=== PATIENT | male | born 1940 | race Caucasian/White ===

== ENCOUNTER → 2020-05-09 | Outpatient (REF) | payer MEDICARE | LOC: M SMT 13:35 | PROVIDERS: ATTEND Urology | DX: N13.30 Unspecified hydronephrosis (principal); N40.1 Benign prostatic hyperplasia with lower urinary tract symptoms ==

== ENCOUNTER 2020-09-14 16:11 | Inpatient (IN) | payer MEDICARE ==
[~2020-09-14] VITALS: Ht 180.3 cm; Wt 107.4 kg
[2020-09-14] MEDS ORDERED: FINA5TAB2 PO (16:21)
[2020-09-14] MEDS ORDERED: ECOT81TA5 PO (16:21)
[2020-09-14] MEDS ORDERED: FLOM0.4C39 PO (16:21)
[2020-09-14] MEDS ORDERED: LEVO75TA4 PO (16:21)
[2020-09-14] MEDS ORDERED: ATEN25TA PO (16:21)
[2020-09-14] MEDS ORDERED: SIMV20TA22 PO (16:21)
[2020-09-14 17:24] LABS: BASO % 0.4 % (0.0-1.0); EOS # 0.3 10^3/uL (0.0-0.5); EOS % 4.6 % (0.0-3.0); HEMOGLOBIN 10.5 g/dl (13.5-17.5); LYMPH % 17.3 % (24.0-44.0); MEAN CORPUSCULAR HEMOGLOBIN 31.6 pg (27.0-33.0); MEAN CORPUSCULAR HGB CONC 31.8 g/dl (32.0-36.5); MEAN CORPUSCULAR VOLUME 99.4 fl (80.0-96.0); MONO # 0.6 10^3/uL (0.0-0.8); MONO % 10.7 % (2.0-8.0); NEUTROPHILS # 3.8 10^3/uL (1.5-8.5); NEUTROPHILS % 66.8 % (36.0-66.0); PLATELET COUNT, AUTOMATED 149 10^3/uL (150-450); RED BLOOD COUNT 3.32 10^6/uL (4.30-6.10); WHITE BLOOD COUNT 5.7 10^3/uL (4.0-10.0)
[2020-09-14 17:59] LABS: BILIRUBIN,DIRECT 0.1 MG/DL (0.0-0.2); BILIRUBIN,TOTAL 0.4 MG/DL (0.2-1.0); TOTAL PROTEIN 7.4 GM/DL (6.4-8.2)
[2020-09-14] MEDS ORDERED: TIMO0.5S29 OU (18:42)
[2020-09-14] MEDS ORDERED: FURO40TA2 PO (18:42)
[2020-09-14] MEDS ORDERED: CVS1500T PO (18:42)
[2020-09-14] MEDS ORDERED: FERR325T82 PO (18:42)
[2020-09-14] MEDS ORDERED: POTA20TA6 PO (18:42)
[2020-09-14] MEDS ORDERED: ACET500T15 PO (18:42)
[2020-09-14] MEDS ORDERED: BRIM0.2S13 OU (18:42)
[2020-09-14] MEDS ORDERED: POLYOPD OU (18:42)
[2020-09-14] MEDS ORDERED: PANT40TA29 PO (18:42)
[2020-09-14] MEDS ORDERED: CALCIUM GLUCONATE 1,000 MG in D5W MINI-BAG PLUS 100 ML IV ONE (18:45)
[2020-09-14] MEDS ORDERED: NS 500 ML IV ONE (18:45)
[2020-09-14] MEDS ORDERED: SOD POLYSTYRENE SULFONATE SUSP 15 GM/60 ML UD PO ONE (18:45)
--- NOTE | 2020-09-14 18:55 | REP ---
INDICATION: bilateral hydronephrosis COMPARISON: None TECHNIQUE: Real time bryan scale ultrasound examination using curved array transducer. FINDINGS: Bilateral grade 4/5 hydroureteronephrosis is appreciated. The right kidney measures 12.0 x 6.7 x 6.8 cm with proximal hydroureter measuring 21 mm. No obvious nephrolithiasis, cystic or renal mass lesion noted. The left kidney measures 12.6 x 5.9 x 6.7 cm with proximal hydroureter measuring 12 mm. No obvious nephrolithiasis, cystic or renal mass lesion noted. The bladder is incompletely evaluated although ureteral jets were not identified during the examination and obstruction cannot be excluded. IMPRESSION: Severe bilateral hydroureteronephrosis (right greater than left). <Electronically signed by Cullen Michael > 09/14/20 [id number]
[2020-09-14 19:24] LABS: CALCIUM LEVEL 9.5 MG/DL (8.8-10.2); CREATININE FOR GFR 2.05 MG/DL (0.70-1.30); GLOMERULAR FILTRATION RATE 33.4 (>35); POTASSIUM SERUM 5.3 MEQ/L (3.5-5.1)
[2020-09-14] MEDS ORDERED: POLYVINYL ALCOHOL OPHTH SOLN 15 ML(LIQUITEARS) OU PRN (19:25)
[2020-09-14 20:08] LABS: RSV AMPLIFICATION NEGATIVE (NEGATIVE)
[2020-09-14 21:00] VITALS: BP 128/74
[2020-09-14] MEDS ORDERED: atenoloL 25 MG TAB PO SCH (21:00)
--- NOTE | 2020-09-14 21:17 | HPEPDOC ---
[facility] Medical History & Physical Date of Admission Sep 14, 2020 Date of Service: Sep 14, 2020 Attending Physician: MUKUND RAUSCH MD History and Physical CHIEF COMPLAINT: [80 y/o male who presents to the ED after abnormal bloodwork/imaging.] HISTORY OF PRESENT ILLNESS: [This is an 81 y/o male with a pmh of htn, hld, gerd, glaucoma, hypothyroidism, bph and esophageal cancer who presents to the ed after being called by his pcp to do so. Patient states he saw his pcp 1-2 weeks ago for routine bloodwork which found an elevated creatinine. Patient then underwent renal us and ct abd/pelvis at outside center and was called by his doc to come to our emergency department. Patient is unsure what the imaging showed. As of my exam of pt, he is resting comfortably and states that he feels good. Patient states that he has had no recent illness, has had good oral intake, and feels as though he has been urinating and empyting his bladder fully. Patient denies any fever, chills, chest pain, sob, dysuria, hematuria, abd pain, n/v/d/c. Of note, patient found to have cr of 2.1, k of 5.3, and severe b/l hydroureteronephrosis on renal us in our ed.] PAST MEDICAL HISTORY: 1. [See HPI PAST SURGICAL HISTORY: 1. [Colonoscopy]. 2. [Endoscopy]. SOCIAL HISTORY: Marital status: []. Resides in: [Home with ] Tobacco use:[Denies] ETOH: [Denies] Illicit drug use: [Denies] FAMILY HISTORY: Reviewed with pt - non pertinent ALLERGIES: Please see below. REVIEW OF SYSTEMS: CONSTITUTIONAL: [See HPI]. HEENT: [Denies uri sx]. CARDIOVASCULAR: [See HPI]. RESPIRATORY: [See HPI]. GASTROINTESTINAL: [See HPI]. GENITOURINARY: [See HPI]. SKIN: [Denies rash]. MUSCULOSKELETAL: [Denies back pain, acute joint pain]. NEUROLOGICAL: [Denies paresthesias]. PSYCHIATRIC: [Denies anxiety]. ENDOCRINE: [Denies hx of dm]. HEMATOLOGIC/LYMPHATIC: [Denies easy bruising]. HOME MEDICATIONS: Please see below. PHYSICAL EXAMINATION: VITAL SIGNS: Please see below GENERAL APPEARANCE: [This is a 80 year old male who appear his stated age.]. HEENT: [No mass or lesion. EOMI. No scleral icterus or conjunctival erythema. Nares patent. Oral mucosa moist without erythema.]. CARDIOVASCULAR: [Regular rate, rhythm. No murmurs, rubs, gallops]. LUNGS: [Good air flow auscultated. No wheezing, rales, rhonchi.]. ABDOMEN: [Soft, non-tender]. MUSCULOSKELETAL: [No joint deformity]. EXTREMITIES: [Mild edema to b/l lower extremities. No overlying skin changes. Pulses intact.]. NEUROLOGICAL: [Speech clear. A+Ox3. No focal deficits]. PSYCHIATRIC: [Mood and affect appear appropriate]. LABORATORY DATA: See below. IMAGING: [Renal US: FINDINGS: Bilateral grade 4/5 hydroureteronephrosis is appreciated. The right kidney measures 12.0 x 6.7 x 6.8 cm with proximal hydroureter measuring 21 mm. No obvious nephrolithiasis, cystic or renal mass lesion noted. The left kidney measures 12.6 x 5.9 x 6.7 cm with proximal hydroureter measuring 12 mm. No obvious nephrolithiasis, cystic or renal mass lesion noted. The bladder is incompletely evaluated although ureteral jets were not identified during the examination and obstruction cannot be excluded. IMPRESSION: Severe bilateral hydroureteronephrosis (right greater than left).] MICROBIOLOGY: Please see below. ASSESSMENT: [This is an 80 y/o male with a pmh of htn, hld, gerd, glaucoma, hypothyroidism, bph and esophageal cancer who reports to the ed after having abnormal imaging and labwork with his pcp. Patient found to have severe b/l hy droureteronephrosis and elaine on evaluation in the ed. ]. . PLAN: 1. [Urinary retention - Most likely bladder outlet obstruction d/t enlarged prostate - Dr. Benjamin, urology, has been consulted - Will insert lara catheter for drainage - Will monitor bp for post obstructive diuresis hypotension - UA shows no signs of infection, no abx needed - Continue flomax, finasteride - Admit to med surg for possible urologic surgical intervention. NPO overnight. 2. ELAINE - CR is 2.1 in ED - Post-renal. Should improve with lara catheterization - Will trend bmp 3. Hyperkalemia - Potassium was 5.3 in ed. No ekg abnormalities noted. - Likely d/t patient being in elaine while on at home potassium supplementation - One dose of kayexalate will be given - Will repeat bmp in morning 4. HTN - Continue atenolol, lasix - We will monitor bp closely as pt will be at risk for post obstructive diuresis hypotension 5. HLD - Continue simvastatin 6. Gerd - Continue protonix 7. Glaucoma - continue timolol, brimonidine drops 8. Hypothyroidism - continue levothyroxine 9. DVT prophylaxis - teds and scds ]. Vital Signs Vital Signs Date Time Temp Pulse Resp B/P (MAP) Pulse Ox O2 Delivery O2 Flow Rate FiO2 09/14/20 17:18 09/14/20 16:12 97.9 57 18 96 Room Air Laboratory Data Labs 24H Laboratory Tests 2 09/14/20 16:37: Immature Granulocyte % (Auto) 0.2, Neutrophils (%) (Auto) 66.8H, Lymphocytes (%) (Auto) 17.3L, Monocytes (%) (Auto) 10.7H, Eosinophils (%) (Auto) 4.6H, Basophils (%) (Auto) 0.4, Neutrophils # (Auto) 3.8, Lymphocytes # (Auto) 1.0L, Monocytes # (Auto) 0.6, Eosinophils # (Auto) 0.3, Basophils # (Auto) 0.0, Nucleated Red Blood Cells % (auto) 0.0, Anion Gap 7L, Glomerular Filtration Rate 33.4L, Calcium Level 9.5, Total Bilirubin 0.4, Direct Bilirubin 0.1, Aspartate Amino Transf (AST/SGOT) 18, Alanine Aminotransferase (ALT/SGPT) 19, Alkaline Phosphatase 79, Total Protein 7.4, Albumin 4.0, Albumin/Globulin Ratio 1.2, Lipase 160 09/14/20 16:57: Urine Color STRAW, Urine Appearance CLEAR, Urine pH 6.0, Urine Specific [place] 1.008, Urine Protein NEGATIVE, Urine Glucose (UA) NEGATIVE, Urine Ketones NEGATIVE, Urine Blood NEGATIVE, Urine Nitrite NEGATIVE, Urine Bilirubin NEGATIVE, Urine Urobilinogen 0.2, Urine Leukocyte Esterase NEGATIVE, Urine WBC (Auto) 1, Urine RBC (Auto) 0, Urine Hyaline Casts (Auto) 0, Urine Bacteria (Auto) NEGATIVE, Urine Squamous Epithelial Cells 0, Urine Sperm (Auto) 09/14/20 17:10: POC Glucose (Misc Panel) 94, POC Sodium (Misc Panel) 142, POC Potassium (Misc Panel) 5.3H, POC Chloride (Misc Panel) 109, POC Total CO2 (Misc Panel) 26.0, POC Blood Urea Nitrogen (Misc Panel 31H, POC Ionized Calcium (Misc Panel) 5.1, POC Creatinine (Misc Panel) 2.1H, POC Hematocrit (Misc Panel) 31.0L 09/14/20 18:19: Coronavirus (COVID-19)(PCR) NEGATIVE, Influenza Type A (RT-PCR) NEGATIVE, Influenza Type B (RT-PCR) NEGATIVE, Respiratory Syncytial Virus (PCR) NEGATIVE CBC/BMP Laboratory Tests 09/14/20 16:37 Home Medications Scheduled Acetaminophen (Acetaminophen) 500 Mg Tablet, 500 MG PO BID Aspirin (Ecotrin) 81 Mg Tablet.dr, 81 MG PO DAILY Atenolol (Atenolol) 25 Mg Tablet, 25 MG PO BID Brimonidine Tartrate (Brimonidine Tartrate) 0.2% 5ML Drops, 1 DROP OU TID Ferrous Sulfate (Iron) 325 Mg Tablet, 325 MG PO QHS Finasteride (Finasteride) 5 Mg Tablet, 5 MG PO DAILY Furosemide (Furosemide) 40 Mg Tablet, 40 MG PO DAILY Glucosamine HCl (Glucosamine HCl) 1,500 Mg Tablet, 1,500 MG PO BID Levothyroxine Sodium (Levothyroxine Sodium) 75 Mcg Tablet, 75 MCG PO QAM Pantoprazole Sodium (Pantoprazole Sodium) 40 Mg Tablet.dr, 40 MG PO DAILY Potassium Chloride (Potassium Chloride) 20 Meq Tab.er.prt, 20 MEQ PO QHS Simvastatin (Simvastatin) 20 Mg Tablet, 20 MG PO QHS Tamsulosin HCl (Flomax) 0.4 Mg Capsule, 0.4 MG PO QHS Timolol Maleate (Timolol Maleate) 0.5% 5ML Drops, 1 DROP OU BID Scheduled PRN Polyvinyl Alcohol (Artificial Tears) 15 Ml Drops, 1 DROP OU QID PRN for DRY EYES Allergies Coded Allergies: No Known Allergies (Unverified , 09/14/20) A-FIB/CHADSVASC A-FIB History Current/History of A-Fib/PAF?: No Attending Note Attending Note Cr elevated likely 2/2 BPH, as hydroureteronephrosis is bilateral. Urology con sulted. To obtain records from outpatient CT. Lara inserted, drained 800 cc of clear urine. Overnight, patient candy to high 30s on telemetry while asleep. Asymptomatic. One 2-sec pause. No formal heart block identified on tele. EKG showing sinus bradycardia. If events persist, consider cardiology consult. Atenolol discontinued. GORDON WILDE Sep 14, 2020 21:17 MUKUND RAUSCH MD September 15, 2020 05:05
[2020-09-14 22:43] VITALS: BP 128/74
[2020-09-14] MEDS ORDERED: NS 1,000 ML IV ONE (23:10)
[2020-09-14] MEDS: TAMSULOSIN 0.4 MG CAP PO SCH (23:23)
[2020-09-14] MEDS: SIMVASTATIN 20 MG TAB PO SCH (23:23)
[2020-09-14] MEDS: FERROUS SULFATE 325MG TAB PO SCH (23:23)
[2020-09-14] MEDS: ACETAMINOPHEN 500 MG TAB PO SCH (23:25)
[2020-09-14] MEDS: TIMOLOL MALEATE 0.5% OPHTH SOLN 5 ML OU SCH (23:54)
[2020-09-14] MEDS: BRIMONIDINE 0.15% OPHTH SOLN 5 ML OU SCH (23:54)
[2020-09-15] VITALS (7 sets, daily range): BP systolic 127–136; BP diastolic 60–73
[2020-09-15 02:45] LABS: THYROID STIMULATING HORMONE 3.62 uIU/ML (0.358-3.740)
--- NOTE | 2020-09-15 04:34 | ECGEPIP ---
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
[2020-09-15] MEDS: LEVOTHYROXINE 75MCG TABLET (0.075MG) PO SCH (05:30)
[2020-09-15 05:41] LABS: HEMATOCRIT 31.6 % (42.0-52.0); HEMOGLOBIN 10.2 g/dl (13.5-17.5); MEAN CORPUSCULAR HEMOGLOBIN 31.9 pg (27.0-33.0); MEAN CORPUSCULAR HGB CONC 32.3 g/dl (32.0-36.5); MEAN CORPUSCULAR VOLUME 98.8 fl (80.0-96.0); PLATELET COUNT, AUTOMATED 143 10^3/uL (150-450); WHITE BLOOD COUNT 4.9 10^3/uL (4.0-10.0)
[2020-09-15] MEDS ORDERED: MIDAZOLAM INJ 2MG/2ML VIAL (J2250 PER 1MG) As Ordered ONE (06:44)
[2020-09-15] MEDS ORDERED: propofoL 200 MG/20 ML VIAL As Ordered ONE (06:44)
[2020-09-15] MEDS ORDERED: LIDOCAINE 2% 100MG/5ML SDV (FOR ANES.) As Ordered ONE (06:44)
[2020-09-15] MEDS ORDERED: fentaNYL 100 MCG/2 ML INJECTION (J3010) As Ordered ONE ×2 (06:45→14:23)
[2020-09-15 06:46] LABS: CALCIUM LEVEL 9.2 MG/DL (8.8-10.2); CREATININE FOR GFR 1.84 MG/DL (0.70-1.30); GLOMERULAR FILTRATION RATE 37.9 (>35); MAGNESIUM LEVEL 1.9 MG/DL (1.8-2.4); POTASSIUM SERUM 4.2 MEQ/L (3.5-5.1)
[2020-09-15] MEDS: BRIMONIDINE 0.15% OPHTH SOLN 5 ML OU SCH ×3 (08:55→20:43)
[2020-09-15] MEDS: PANTOPRAZOLE 40MG TAB (PROTONIX) PO SCH (08:56)
[2020-09-15] MEDS: FINASTERIDE 5 MG TAB PO SCH (08:56)
[2020-09-15] MEDS: ACETAMINOPHEN 500 MG TAB PO SCH ×2 (08:57→20:43)
[2020-09-15] MEDS: SODIUM CHLORIDE 0.9% INJ 10 ML SYR IV SCH (08:58)
[2020-09-15] MEDS ORDERED: FUROSEMIDE 40 MG TAB PO SCH (09:00)
[2020-09-15] MEDS ORDERED: ASPIRIN 81MG ENTERIC TABLET PO SCH (09:00)
[2020-09-15] MEDS: TIMOLOL MALEATE 0.5% OPHTH SOLN 5 ML OU SCH (09:02)
[2020-09-15] MEDS ORDERED: CONRAY-60 60% 50ML VIAL (Q9961) As Ordered ONE (11:43)
[2020-09-15] MEDS ORDERED: ceFAZolin 2 GM/D5W 50 ML IV BAG (J0690 PER 500MG) As Ordered ONE (11:58)
[2020-09-15] MEDS ORDERED: GLYCOPYRROLATE INJ 0.2 MG/ML 2 ML VIAL As Ordered ONE (12:23)
[2020-09-15] MEDS ORDERED: dexameTHASONE 4 MG/ML 1ML VIAL (J1100 PER 1MG) As Ordered ONE (12:24)
[2020-09-15] MEDS ORDERED: ONDANSETRON 4MG/2ML VIAL As Ordered ONE (12:24)
[2020-09-15] MEDS ORDERED: FLUORESCEIN 10% (100MG/ML) 5 ML VIAL As Ordered ONE ×2 (12:24→13:22)
[2020-09-15] MEDS ORDERED: METHYLENE BLUE 0.5% (5MG/ML) 10 ML AMP (PROVAYBLUE) As Ordered ONE (12:41)
[2020-09-15] MEDS ORDERED: DESFLURANE 240 ML INHALANT As Ordered ONE (12:54)
--- NOTE | 2020-09-15 13:55 | REP ---
INDICATION: BILATERAL STENT PLACEMENT. COMPARISON: None. TECHNIQUE: Intraoperative fluoroscopic imaging using C-arm technique. FINDINGS: Single image demonstrates cannulation to a normal appearing right ureter. Total fluoroscopic time 0.47 seconds. IMPRESSION: Normal appearance of the right ureter. <Electronically signed by Cullen Michael > 09/15/20 [id number]
--- NOTE | 2020-09-15 14:39 | ROOPDOC ---
[facility] Report Of Operation Report of Operation DATE OF PROCEDURE: 09/15/20 PREPROCEDURE DIAGNOSES: Severe bilateral hydronephrosis, acute kidney injury, and questionable bladder lesion POSTPROCEDURE DIAGNOSES: Large median lobe of the prostate and originally and inability to find both ureteral orifices PROCEDURE: Cystoscopy, partial TURP of the median lobe of the prostate, right retrograde pyelogram and right ureteral stent placement SURGEON: Debby Bassett MD ASSISTANT CURATOR: None ANESTHESIA: Gen. ESTIMATED BLOOD LOSS: Approximately 20 mL. COMPLICATIONS: Inability to find left ureteral orifice REMARKS: Large median lobe over the ureteral orifices SPECIMEN: Prostatic tissue PROCEDURE NOTE: Patient is an 80-year-old gentleman who was sent to the emergency room after he was found to have an elevated creatinine of 2.[address] scan showing severe bilateral hydronephrosis. He had recently had a bladder ultrasound on 09/10/20 which showed a PVR 15 mL. He has been seen in my office in the past and was known to have a hydronephrosis back in April 2020 and his creatinine at the time was 1.46. Cystoscopy was done because there was a question of a bladder lesion but no abnormalities were seen. After discussing all different options, alternatives, risks, and benefits it was decided to bring him to the operating room for cystoscopy and bilateral ureteral stent placement. Informed consent was obtained in both verbal and written form. DESCRIPTION OF PROCEDURE: The patient was brought into the operating room and sequential compression devices were in place. Preoperative antibiotics were given with Ancef 2 g. Anesthesia was then induced. The patient was then placed in the lithotomy position and he was prepped and draped in the usual fashion. A 21 Fijian cystoscope was inserted in the urethra was noted to be open without any evidence of lesions or strictures. The prostatic urethra had some mild hypertrophy but he had a very large median lobe and high bladder neck. The bladder did show some trabeculation. Originally I was not able to see either ureteral orifice so I gave fluorosine and still was unable to visualize the orifices. It was felt that they most likely were behind the median lobe. At this point a 26 Fijian resectoscope was placed under direct vision and the median lobe was removed. There was also some inflammatory tissue on the left-hand side which had been biopsied and sent separately before the resection. Once the median lobe was removed I was able to see fluorosine coming from the right ureteral orifice. I then put in a cone-tip catheter and did a retrograde pyelogram. There was something distally that the wire had trouble passing but I was finally able to get this in and then placed a 7 Fijian scope. I resected a little bit further but was never able to see any floor seen or methylene blue coming from the left side and was unable to find the ureteral orifice. We will plan on doing a left nephrostomy tube and hopefully internalize the stent when interventional radiology is available. A 22 Fijian three-way Ibrahim catheter was placed and the patient was placed on continuous bladder irrigation which was fairly clear. Resected tissue was sent to pathology. The patient tolerated the procedure well and was returned to the recovery room in stable condition. DEBBY BASSETT MD September 15, 2020 14:38
--- NOTE | 2020-09-15 14:49 | IPN ---
PROGRESS NOTE DATE: 09/15/2020 SUBJECTIVE: Patient denies any shortness of breath, chest pain, pressure, tightness, lightheadedness, dizziness. Denies diaphoresis, nausea, vomiting, epigastric pain, flank pain, dysuria, urgency frequency. Ibrahim catheter placed overnight, but monitoring 1 liter last night, 1.1 liters since midnight. Current weight is 106 kg. PHYSICAL EXAMINATION: VITAL SIGNS: Temperature 97.7, pulse 50, respiratory rate 19, blood pressure 134/73, 98% on room air. TELEMETRY: Sinus pulse 2 seconds, sinus bradycardia. GENERAL: Awake, alert, oriented to person, place and time, answering questions appropriately. No respiratory distress. No pallor, icterus, jaundice. HEENT: No jugular venous distention (JVD), thyromegaly, cervical lymphadenopathy. HEART: S1, S2. Sinus bradycardia. ABDOMEN: Soft, nontender, nondistended. Positive bowel sounds. GENITOURINARY: Ibrahim catheter in place. No costovertebral angle (CVA) tenderness. LUNGS: Clear to auscultation. No wheezing, rales or rhonchi. EXTREMITIES: No cyanosis, clubbing. SKIN: Warm, dry, well perfused, pink in color. LABORATORY DATA: White count 4.9, hemoglobin 10, hematocrit 31, platelets 143. Previous platelet count 149. Sodium 144, potassium 4.2, chloride 113, bicarbonate 25, BUN 28, creatinine 1.84, glucose 98. Creatinine 2.05 yesterday. Renal ultrasound: Severe bilateral hydroureter nephrosis right greater than left. ASSESSMENT AND PLAN: An 80-year-old male with history of hypertension, hyperlipidemia, reflux, glaucoma, hypothyroidism, benign prostatic hypertrophy (BPH), esophageal cancer, chronic sinus bradycardia, also on timolol for his glaucoma, presented to the emergency room due to abnormal blood work with a creatinine of 2, found to have bilateral hydroureter nephrosis, right greater than left, given intravenous (IV) fluids overnight and Ibrahim catheter placement. Telemetry overnight shows sinus bradycardia and 2 second sinus pause. IMPRESSION: 1. Medical clearance. Discussed the case with Dr. Templeton, powder mixer consulting software engineer, who is not concerned about the sinus bradycardia. Patient should be on telemetry during his hospital stay and may proceed to the operating room. Patient's atenolol, last dose was yesterday morning at home and has not received any atenolol during the hospital admission. His timolol has also been discontinued, but was given a dose this morning. No acute need for atropine, since the patient's blood pressure is well maintained and he is asymptomatic. Patient is medically stable to proceed to the operating room. 2. Sinus pause 2 seconds/sinus bradycardia secondary to atenolol and timolol eye drops. Both of those medications have been discontinued. TSH level is within normal. We are awaiting echocardiogram, but may proceed to surgery for stent placement on telemetry. 3. Bilateral hydroureter nephrosis. Urologist, Dr. Benjamin, has been consulted and will be placing stents in today. Currently has a Ibrahim catheter, adequate urine output with only slight improvement of creatinine to 1.8. Strict intake and output (I and O), daily weight, fluid restriction, nothing by mouth (NPO). Continue on Proscar. 4. Hypertension. Controlled. Currently 120s to 130s systolic. 5. History of esophageal cancer. 6. Hypothyroidism. On Synthroid with normal TSH. 7. Hyperlipidemia. On statin. 8. History of reflux. Chronic. 9. History of benign prostatic hypertrophy (BPH). Chronic. MTDD
[2020-09-15] MEDS ORDERED: oxyCODONE 5MG TAB PO PRN (14:50)
[2020-09-15] MEDS ORDERED: LR 1,000 ML IV SCH (14:50)
[2020-09-15] MEDS ORDERED: fentaNYL 100 MCG/2 ML INJECTION (J3010) IV PRN (14:50)
[2020-09-15] MEDS ORDERED: ONDANSETRON 4MG/2ML VIAL IV PRN (14:50)
--- NOTE | 2020-09-15 15:02 | CR.PDOC ---
General Date of Consultation: September 15, 2020 Referring Provider: NELLA DIEHL MD Consultation Loius is an 80-year-old gentleman being seen in consultation for bilateral hydronephrosis and acute kidney injury with a creatinine of 2.2. The patient has been seen previously in my office where he was first seen to have new onset bilateral hydronephrosis in April 2020 with a creatinine at the time of 1.46. He had absolutely no pain and no irritative or obstructive voiding symptoms. He then had a cystoscopy done on 04/2020 for a questionable bladder lesion but none was appreciated. He was recently seen in his primary care doctor's office and a renal ultrasound showed that the bilateral [place] is now severe and his creatinine had risen to 2.2. He was sent to the ER for further management. Louis denied any gross hematuria or problems with kidney stones. He denied any significant irritative or obstructive voiding symptoms except for some urinary urgency and new onset of nocturnal enuresis the past couple months. He denied any leakage of urine during the day or any change in his medications. He does have a history of esophageal cancer and received both radiation and chemotherapy. A CT scan of the abdomen and pelvis was reviewed from [facility] on 09/14/20 but unfortunately I did not have the disc only the report. This showed moderate to severe bilateral hydroureteronephrosis which has progressed since the prior study of April 2020. Perinephric soft tissue stranding and periureteral soft tissue stranding. There is also irregular wall thickening of the bladder suggestive of cystitis or neoplasm. There is also thickening of the distal esophagus and circumferential thickening of the proximal to mid sigmoid and anterior wall to rectal. His white blood count was normal and a urinalysis was negative. Past medical history: -Esophageal cancer status post radiation and chemotherapy -High blood pressure -GERD -Hypothyroidism -Glaucoma -History of BPH on finasteride and tamsulosin Past Surgical history: -Colonoscopy -Endoscopy -Cystoscopy 04/2020 Social history: He is and lives at home with his . He never smoked cigarettes and he denies alcohol or illicit drug use Family history: Pertinent urologic history Allergies: No known drug allergies Review of systems: A 12 system review was negative Physical exam: This a well nourished well-developed gentleman in no apparent respiratory distress he is alert and oriented 3. His head is normocephalic atraumatic his eyes are PERRLA. His oral mucosa was moist. His neck was supple his trachea was midline. His heart had a regular rate and rhythm. His lungs were clear and there was no wheezing rales or rhonchi appreciated. He had no CVA tenderness. His abdomen was soft and nontender without any rebound or guarding. A Ibrahim catheter was in place draining clear yellow urine. His extremities showed no significant cyanosis clubbing or edema. His neurologic exam was nonfocal. Laboratory data: See below Impression: -Bilateral hydronephrosis with a CT scan showing no stones or other abnormalities -BPH on finasteride and Proscar -Esophageal cancer status post radiation and chemotherapy with high blood pressure also with sinus bradycardia and sinus pause last night Plan: -The hospitalist spoke with Dr. Templeton who felt that surgery was fine today -After discussing all different options, alternatives, risks, benefits it was decided to bring the patient to the operating room today for cystoscopy, bilateral retrograde pyelograms, and bilateral stent placement. Informed consent was obtained in both verbal and written form. At least 70 minutes was spent today with greater than 50% of this in [id number] consultation Vital Signs/I&O Vital Signs Date Time Temp Pulse Resp B/P (MAP) Pulse Ox O2 Delivery O2 Flow Rate FiO2 09/15/20 06:00 97.7 50 19 134/73 (93) 98 Room Air I&O- Last 24 Hours up to 6 AM 09/15/20 06:00 Intake Total 900 ml Output Total 1550 ml Balance -650 ml Laboratory Data Labs 24H Laboratory Tests 2 09/14/20 16:37: Immature Granulocyte % (Auto) 0.2, Neutrophils (%) (Auto) 66.8H, Lymphocytes (%) (Auto) 17.3L, Monocytes (%) (Auto) 10.7H, Eosinophils (%) (Auto) 4.6H, Basophils (%) (Auto) 0.4, Neutrophils # (Auto) 3.8, Lymphocytes # (Auto) 1.0L, Monocytes # (Auto) 0.6, Eosinophils # (Auto) 0.3, Basophils # (Auto) 0.0, Nucleated Red Blood Cells % (auto) 0.0, Anion Gap 7L, Glomerular Filtration Rate 33.4L, Calcium Level 9.5, Total Bilirubin 0.4, Direct Bilirubin 0.1, Aspartate Amino Transf (AST/SGOT) 18, Alanine Aminotransferase (ALT/SGPT) 19, Alkaline Phosphatase 79, Total Protein 7.4, Albumin 4.0, Albumin/Globulin Ratio 1.2, Lipase 160, Thyroid Stimulating Hormone (TSH) 3.620 09/14/20 16:57: Urine Color STRAW, Urine Appearance CLEAR, Urine pH 6.0, Urine Specific [place] 1.008, Urine Protein NEGATIVE, Urine Glucose (UA) NEGATIVE, Urine Ketones NEGATIVE, Urine Blood NEGATIVE, Urine Nitrite NEGATIVE, Urine Bilirubin NEGATIVE, Urine Urobilinogen 0.2, Urine Leukocyte Esterase NEGATIVE, Urine WBC (Auto) 1, Urine RBC (Auto) 0, Urine Hyaline Casts (Auto) 0, Urine Bacteria (Auto) NEGATIVE, Urine Squamous Epithelial Cells 0, Urine Sperm (Auto) 09/14/20 17:10: POC Glucose (Misc Panel) 94, POC Sodium (Misc Panel) 142, POC Potassium (Misc Panel) 5.3H, POC Chloride (Misc Panel) 109, POC Total CO2 (Misc Panel) 26.0, POC Blood Urea Nitrogen (Misc Panel 31H, POC Ionized Calcium (Misc Panel) 5.1, POC Creatinine (Misc Panel) 2.1H, POC Hematocrit (Misc Panel) 31.0L 09/14/20 18:19: Coronavirus (COVID-19)(PCR) NEGATIVE, Influenza Type A (RT-PCR) NEGATIVE, Influenza Type B (RT-PCR) NEGATIVE, Respiratory Syncytial Virus (PCR) NEGATIVE 09/15/20 05:28: Nucleated Red Blood Cells % (auto) 0.0, Anion Gap 6L, Glomerular Filtration Rate 37.9, Calcium Level 9.2, Magnesium Level 1.9 CBC/BMP Laboratory Tests 09/14/20 16:37 09/15/20 05:28 Allergies Coded Allergies: No Known Allergies (Unverified , 09/14/20) Home Medications Scheduled Acetaminophen (Acetaminophen) 500 Mg Tablet, 500 MG PO BID, (Reported) Aspirin (Ecotrin) 81 Mg Tablet.dr, 81 MG PO DAILY, (Reported) Atenolol (Atenolol) 25 Mg Tablet, 25 MG PO BID, (Reported) Brimonidine Tartrate (Brimonidine Tartrate) 0.2% 5ML Drops, 1 DROP OU TID, (Reported) Ferrous Sulfate (Iron) 325 Mg Tablet, 325 MG PO QHS, (Reported) Finasteride (Finasteride) 5 Mg Tablet, 5 MG PO DAILY, (Reported) Furosemide (Furosemide) 40 Mg Tablet, 40 MG PO DAILY, (Reported) Glucosamine HCl (Glucosamine HCl) 1,500 Mg Tablet, 1,500 MG PO BID, (Reported) Levothyroxine Sodium (Levothyroxine Sodium) 75 Mcg Tablet, 75 MCG PO QAM, (Reported) Pantoprazole Sodium (Pantoprazole Sodium) 40 Mg Tablet.dr, 40 MG PO DAILY, (Reported) Potassium Chloride (Potassium Chloride) 20 Meq Tab.er.prt, 20 MEQ PO QHS, (Rep orted) Simvastatin (Simvastatin) 20 Mg Tablet, 20 MG PO QHS, (Reported) Tamsulosin HCl (Flomax) 0.4 Mg Capsule, 0.4 MG PO QHS, (Reported) Timolol Maleate (Timolol Maleate) 0.5% 5ML Drops, 1 DROP OU BID, (Reported) Scheduled PRN Polyvinyl Alcohol (Artificial Tears) 15 Ml Drops, 1 DROP OU QID PRN for DRY EYES, (Reported) MODESTA BASSETT MD September 15, 2020 15:02
[2020-09-15] MEDS: SODIUM CHLORIDE 0.9% INJ 10 ML SYR IV PRN ×2 (16:07→18:31)
[2020-09-15 16:52] LABS: INR 1.15; PARTIAL THROMBOPLASTIN TIME 29.5 SECONDS (24.2-38.5)
--- NOTE | 2020-09-15 17:02 | REP ---
INDICATION: JAUNDICE COMPARISON: None. TECHNIQUE: Real time bryan scale ultrasound examination using curved array transducer. FINDINGS: Gallbladder demonstrates gallstones and wall thickening without pericholecystic fluid or biliary ductal dilatation. The common bile duct measures 5 mm diameter. The liver demonstrates fatty infiltration without obvious focal hepatic lesion. However evaluation is incomplete due to interposed bowel gas. The pancreas is incompletely evaluated due to interposed bowel gas. The right kidney measures 11.5 x 7.2 x 6.9 cm with hydronephrosis and ureteral stent identified. No ascites in the visualized right upper quadrant. IMPRESSION: 1. Cholelithiasis. No evidence for biliary ductal dilatation. 2. Hepatosteatosis. 3. Right renal hydronephrosis with ureteral stent noted. <Electronically signed by Cullen Michael > 09/15/20 [id number]
[2020-09-15 17:06] LABS: ACETAMINOPHEN LEVEL < 2.0 UG/ML (10.0-30.0); ALBUMIN 3.7 GM/DL (3.2-5.2); ALT/SGPT 20 U/L (12-78); BILIRUBIN,TOTAL 0.4 MG/DL (0.2-1.0); BLOOD UREA NITROGEN 26 MG/DL (7-18); CALCIUM LEVEL 8.5 MG/DL (8.8-10.2); CARBON DIOXIDE LEVEL 27 MEQ/L (21-32); CHLORIDE LEVEL 112 MEQ/L (98-107); CREATININE FOR GFR 1.78 MG/DL (0.70-1.30); FERRITIN 371 NG/ML (26-388); GLOMERULAR FILTRATION RATE 39.3 (>35); GLUCOSE, FASTING 106 MG/DL (70-100); IRON (FE) 142 UG/DL (65-175); LDH LACTATE DEHYDROGENASE 89 U/L (87-241); PERCENT SATURATION 54.2 % (19.7-50.0); POTASSIUM SERUM 4.5 MEQ/L (3.5-5.1); SODIUM LEVEL 144 MEQ/L (136-145); TOTAL IRON BINDING CAPACITY 262 UG/DL (250-450); TOTAL PROTEIN 7.2 GM/DL (6.4-8.2)
--- NOTE | 2020-09-15 18:24 | REPVR ---
PROCEDURE INFORMATION: Exam: MR Abdomen Without Contrast, MRCP Exam date and time: 09/15/2020 6:00 PM Age: 80 years old Clinical indication: Abdominal pain; Epigastric; Patient HX: Jaundice f/u to u/s on pacs TECHNIQUE: Imaging protocol: MR of the abdomen without contrast. Exam focused on the bile ducts and pancreatic ducts. 3D MRCP images were acquired and processed without radiologist supervision. COMPARISON: GALLBLADDER US 09/15/2020 4:44 PM FINDINGS: Liver: No mass. Gallbladder and bile ducts: There are gallstones present. Mild gallbladder wall thickening may reflect chronic cholecystitis. No pericholecystic fluid. No evidence of acute cholecystitis demonstrated. The common bile duct measures 5 mm. No mass or choledocholithiasis. 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 Additional tiny cysts may be present as well. Kidneys and ureters: Bilateral hydroureteronephrosis. Etiology of the hydronephrosis not demonstrated on this examination. Pigtail stent catheter demonstrated in the right collecting system. Bilateral simple cortical cysts measuring up to 11 mm in the left kidney. No follow-up suggested. Inflammatory changes demonstrated in the left perinephric space and left retroperitoneal region as well as minimal ascites in the left upper quadrant. Intraperitoneal space: No fluid collection. Bones/joints: The spine demonstrates moderate degenerative changes. IMPRESSION: 1. There are gallstones present. Mild gallbladder wall thickening may reflect chronic cholecystitis. No pericholecystic fluid. No evidence of acute cholecystitis demonstrated. 2. Bilateral hydroureteronephrosis. Etiology of the hydronephrosis not demonstrated on this examination. Pigtail stent catheter demonstrated in the right collecting system. 3. 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 Additional tiny cysts may be present as well. While single follow-up of tiny "white dot" lesions at 2 years is appropriate, the need for further follow-up and length of follow-up, if stable, is unknown. Some radiologists do not report these lesions for patients with advanced age (>75-80 years of age). 4. Bilateral simple cortical cysts measuring up to 11 mm in the left kidney. No follow-up suggested. 5. Inflammatory changes demonstrated in the left perinephric space and left retroperitoneal region as well as minimal ascites in the left upper quadrant. COMMENTS: Consistent with the [employer]'s Incidental Findings Committee white paper (J Am Bettye Radiol 2018): Any incidental renal lesion less than 1 cm or classified as too small to characterize, or any incidental cystic renal lesion characterized as simple-appearing, is likely benign. No follow-up imaging is recommended for these lesions per consensus recommendations based on imaging criteria. Electronically signed by: Allan Riggs On 09/15/2020 18:24:19 PM
[2020-09-15] MEDS: FERROUS SULFATE 325MG TAB PO SCH (20:42)
[2020-09-15] MEDS: SIMVASTATIN 20 MG TAB PO SCH (20:42)
[2020-09-15] MEDS: TAMSULOSIN 0.4 MG CAP PO SCH (20:42)
[2020-09-16] VITALS (8 sets, daily range): BP systolic 88–123; BP diastolic 46–67
[2020-09-16] MEDS: LEVOTHYROXINE 75MCG TABLET (0.075MG) PO SCH (05:06)
[2020-09-16 05:20] LABS: HEMATOCRIT 32.2 % (42.0-52.0); HEMOGLOBIN 10.8 g/dl (13.5-17.5); MEAN CORPUSCULAR HEMOGLOBIN 32.4 pg (27.0-33.0); MEAN CORPUSCULAR HGB CONC 33.5 g/dl (32.0-36.5); MEAN CORPUSCULAR VOLUME 96.7 fl (80.0-96.0); PLATELET COUNT, AUTOMATED 141 10^3/uL (150-450); RED BLOOD COUNT 3.33 10^6/uL (4.30-6.10); WHITE BLOOD COUNT 7.7 10^3/uL (4.0-10.0)
[2020-09-16 05:58] LABS: CALCIUM LEVEL 8.7 MG/DL (8.8-10.2); CREATININE FOR GFR 1.8 MG/DL (0.70-1.30); GLOMERULAR FILTRATION RATE 38.8 (>35); MAGNESIUM LEVEL 1.7 MG/DL (1.8-2.4); POTASSIUM SERUM 4.1 MEQ/L (3.5-5.1)
[2020-09-16] MEDS: FINASTERIDE 5 MG TAB PO SCH (08:05)
[2020-09-16] MEDS: SODIUM CHLORIDE 0.9% INJ 10 ML SYR IV SCH (08:05)
[2020-09-16] MEDS: PANTOPRAZOLE 40MG TAB (PROTONIX) PO SCH (08:05)
[2020-09-16] MEDS: ACETAMINOPHEN 500 MG TAB PO SCH ×2 (08:06→20:23)
[2020-09-16] MEDS: BRIMONIDINE 0.15% OPHTH SOLN 5 ML OU SCH ×3 (08:06→20:23)
[2020-09-16] MEDS ORDERED: cefTRIAXone SOD 1 GM in D5W MINI-BAG PLUS 50 ML IV SCH (10:00)
[2020-09-16] MEDS ORDERED: MAG SULF 1GM/100ML (MAG RUN) 1 GM in IV 1 EA IV ONE (10:00)
[2020-09-16] MEDS: cefTRIAXone SOD 1 GM in D5W MINI-BAG PLUS 50 ML IV SCH (11:35)
[2020-09-16] MEDS: NS 1,000 ML IV SCH ×2 (11:36→23:25)
--- NOTE | 2020-09-16 13:57 | IPNPDOC ---
Text Note Date of Service The patient was seen on 09/16/20. NOTE Patient is postop day #1 his cystoscopy with difficulty seeing his ureteral or ifices secondary to a large median lobe going into the bladder. Median lobe was removed and I was able to find the right ureteral orifice but never able to see the left. The stent was placed on the right-hand side. His creatinine has come down from 2.2 to only 1.8. We are awaiting a renal ultrasound today to see if there is still left hydro-and if there is then he will require placement of a left nephrostomy tube with an internalized left ureteral stent and then hopefully eventual removal of the nephrostomy tube. Physical examination: Well-developed well-nourished gentleman lying in a hospital bed in no apparent respiratory distress. He is alert and oriented 3. His neck is supple. His heart is regular. His lungs are clear. His abdomen is soft and nontender and he has no CVA tenderness. His Ibrahim is on very low CBI with clear urine. His extremities show no cyanosis clubbing or edema. Impression: -Bilateral hydroureteronephrosis with a very large median lobe of the prostate possibly adding to issues but unable to see both ureteral orifices so resection was done. He now has a right ureteral stent in place but I was never able to see the left ureteral orifice even after giving Fluoroscene or methylene blue. -Acute renal injury slightly improved since yesterday Plan: -Await a renal ultrasound today but if there is still left hydro-then the patient will need a interventional radiology consultation for placement of a left nephrostomy tube an internalized stent. This was dictated with Teresita and not proofread for errors VSHailey, I+O VSHailey, I+O Laboratory Tests 09/15/20 15:54 09/16/20 05:08 Vital Signs Date Time Temp Pulse Resp B/P (MAP) Pulse Ox O2 Delivery O2 Flow Rate FiO2 09/16/20 11:07 98/54 (69) 09/16/20 10:00 98.2 72 16 94 Room Air I&O- Last 24 Hours up to 6 AM 09/16/20 06:00 Intake Total 2020 ml Output Total 2950 ml Balance -930 ml MODESTA BASSETT MD September 16, 2020 13:57
--- NOTE | 2020-09-16 15:09 | REP ---
INDICATION: hydronephrosis COMPARISON: None TECHNIQUE: Real time bryan scale ultrasound examination using curved array transducer. FINDINGS: Right kidney measures 11.2 x 5.8 x 4.6 cm with ureteral stent identified. No hydronephrosis, nephrolithiasis, cystic or renal mass lesion. Left kidney measures 12.4 x 4.9 x 5.5 cm with a 1.4 cm midpole cyst and cortical thinning along with moderate to severe hydronephrosis. Ibrahim catheter in collapsed bladder. IMPRESSION: Right kidney demonstrates stent without hydronephrosis Left kidney demonstrates moderate to severe hydronephrosis and 1.4 cm midpole cyst. <Electronically signed by Cullen Michael > 09/16/20 [id number]
[2020-09-16] MEDS: FERROUS SULFATE 325MG TAB PO SCH (20:22)
[2020-09-16] MEDS: TAMSULOSIN 0.4 MG CAP PO SCH (20:22)
[2020-09-16] MEDS: SIMVASTATIN 20 MG TAB PO SCH (20:22)
[2020-09-17] VITALS (8 sets, daily range): BP systolic 111–157; BP diastolic 50–85
[2020-09-17] MEDS: LEVOTHYROXINE 75MCG TABLET (0.075MG) PO SCH (05:38)
[2020-09-17 05:59] LABS: HEMATOCRIT 31.1 % (42.0-52.0); HEMOGLOBIN 10.4 g/dl (13.5-17.5); MEAN CORPUSCULAR HEMOGLOBIN 32.4 pg (27.0-33.0); MEAN CORPUSCULAR HGB CONC 33.4 g/dl (32.0-36.5); MEAN CORPUSCULAR VOLUME 96.9 fl (80.0-96.0); PLATELET COUNT, AUTOMATED 128 10^3/uL (150-450); RED BLOOD COUNT 3.21 10^6/uL (4.30-6.10); WHITE BLOOD COUNT 7.1 10^3/uL (4.0-10.0)
[2020-09-17 08:26] LABS: CALCIUM LEVEL 8.9 MG/DL (8.8-10.2); CREATININE FOR GFR 1.82 MG/DL (0.70-1.30); GLOMERULAR FILTRATION RATE 38.4 (>35); MAGNESIUM LEVEL 1.9 MG/DL (1.8-2.4)
[2020-09-17] MEDS: PANTOPRAZOLE 40MG TAB (PROTONIX) PO SCH (08:55)
[2020-09-17] MEDS: FINASTERIDE 5 MG TAB PO SCH (08:55)
[2020-09-17] MEDS: ACETAMINOPHEN 500 MG TAB PO SCH ×2 (08:56→20:32)
[2020-09-17] MEDS: SODIUM CHLORIDE 0.9% INJ 10 ML SYR IV SCH (08:58)
[2020-09-17] MEDS: BRIMONIDINE 0.15% OPHTH SOLN 5 ML OU SCH ×3 (09:19→20:32)
[2020-09-17 09:50] LABS: INR 1.18; PROTHROMBIN TIME 15.3 SECONDS (12.5-14.3)
[2020-09-17 09:51] LABS: PARTIAL THROMBOPLASTIN TIME 28.7 SECONDS (24.2-38.5)
[2020-09-17 11:22] LABS: HEPATITIS B SURFACE ANTIGEN NEGATIVE (NEGATIVE)
[2020-09-17 11:51] LABS: HEPATITIS B CORE ANTIBODY IGM NEGATIVE (NEGATIVE)
[2020-09-17 11:52] LABS: HEPATITIS A ANTIBODY IGM NEGATIVE (NEGATIVE)
[2020-09-17] MEDS ORDERED: fentaNYL 100 MCG/2 ML INJECTION (J3010) As Ordered ONE ×2 (12:02→16:25)
[2020-09-17] MEDS ORDERED: diphenhydrAMINE 50MG/ML VIAL (J1200) As Ordered ONE (12:02)
[2020-09-17] MEDS ORDERED: MIDAZOLAM INJ 2MG/2ML VIAL (J2250 PER 1MG) As Ordered ONE ×2 (12:03→16:25)
[2020-09-17] MEDS ORDERED: ISOVUE-300 61% 50ML VIAL As Ordered ONE ×4 (12:03→16:46)
[2020-09-17] MEDS ORDERED: ceFAZolin 1GM VIAL (J0690 PER 500MG) As Ordered ONE (12:03)
[2020-09-17] MEDS: cefTRIAXone SOD 1 GM in D5W MINI-BAG PLUS 50 ML IV SCH (12:04)
--- NOTE | 2020-09-17 12:26 | IRMSE ---
[facility] IR Moderate Sedation Eval. Date and Time Date: September 17, 2020 Time: 12:25 ASA Classification ASA Classification: III-Severe systemic dis. Mallampati Score: II NPO: Yes Obstructive Sleep Apnea: No Interval Plan: moderate sedation UZIEL BRAR MD September 17, 2020 12:26
[2020-09-17] MEDS ORDERED: LIDOCAINE 1% MDV 20ML VIAL As Ordered ONE ×2 (13:39→16:46)
--- NOTE | 2020-09-17 13:58 | IPNPDOC ---
Date Seen The patient was seen on 09/16/20. Progress Note S: HD stable. no sinus pause overnight. yesterday, postop jaundice. neg w/u normal lft's imaging. back to baseline today. creat 1.8 not sure what his baseline is. no c/o sob, cp, pressure, flank pain, abd pain/n/v/f. urine : ecoli on iv ceftriaxone/s/p stent with improved creat from 2. PHYSICAL EXAMINATION: VITAL SIGNS: see below TELEMETRY: sinus bradycardia.47-55bpm GENERAL: Awake, alert, oriented to person, place and time, answering questions appropriately. No respiratory distress. No pallor, icterus, jaundice. HEENT: No jugular venous distention (JVD), thyromegaly, cervical lymphadenopathy.missing teeth poor dentition no stridor HEART: S1, S2. Sinus bradycardia. ABDOMEN: Soft, nontender, nondistended. Positive bowel sounds.no rebound no guarding no HSM GENITOURINARY: Ibrahim catheter in place. No costovertebral angle (CVA) tenderness. LUNGS: Clear to auscultation. No wheezing, rales or rhonchi.rt infusaport EXTREMITIES: No cyanosis, clubbing.+chronic edema SKIN: Warm, dry, well perfused, pink in color. LABORATORY DATA: see below Renal ultrasound: Severe bilateral hydroureter nephrosis right greater than left. ASSESSMENT AND PLAN: An 80-year-old male with history of hypertension, hyperlipidemia, reflux, glaucoma, hypothyroidism, benign prostatic hypertrophy (BPH), esophageal cancer, chronic sinus bradycardia, also on timolol for his glaucoma, presented to the emergency room due to abnormal blood work with a creatinine of 2, found to have bilateral hydroureter nephrosis, right greater than left, given intravenous (IV) fluids overnight and Ibrahim catheter placement. Telemetry overnight shows sinus bradycardia and 2 second sinus pause. Sinus pause 2 seconds/sinus bradycardia secondary to atenolol and timolol eye drops. Both of those medications have been discontinued. TSH level is within normal. no acute indication for cardiology consult or pacer. no recurrent sinus pause once taken off atenolol and timolol. Bilateral hydroureter nephrosis. Urologist, Dr. Benjamin, consulted s/p stents 09/15/ Currently has a Ibrahim catheter, adequate urine output with only slight improvement of creatinine to 1.8. Strict intake and output (I and O), daily weight, fluid restriction Continue on Proscar. Acute ? on CKD3 E.coli UTI present on admission in the setting of b/l hydronephrosis needing stent -iv ceftriaxone day 1 Hypertension. Controlled. Currently 120s to 130s systolic. History of esophageal cancer. postop Jaundice workup negative most likely acute drug induced but no remaining sequela Hypothyroidism. On Synthroid with normal TSH. Hyperlipidemia. On statin. History of reflux. Chronic. History of benign prostatic hypertrophy (BPH). Chronic. VS, I&O, 24H, Fishbone Vital Signs/I&O Vital Signs Date Time Temp Pulse Resp B/P (MAP) Pulse Ox O2 Delivery O2 Flow Rate FiO2 09/16/20 06:00 98.2 83 18 122/66 (84) 93 Room Air I&O- Last 24 Hours up to 6 AM 09/16/20 06:00 Intake Total 2020 ml Output Total 2950 ml Balance -930 ml Laboratory Data 24H LABS Laboratory Tests 2 09/15/20 15:54: Reticulocyte # (auto) 23.5, Differential Slide Review Report, Peripheral Blood Smear Path Consult PERIPHERAL SMEAR, Percent Reticulocyte Count 0.7, Reticulocyte Hemoglobin Equivalent 36.1H, Prothrombin Time 15.0H, Prothromb Time International Ratio 1.15, Activated Partial Thromboplast Time 29.5, Anion Gap 5L, Glomerular Filtration Rate 39.3, Calcium Level 8.5L, Iron Level 142, Total Iron Binding Capacity 262, Transferrin % Saturation 54.2H, Ferritin 371, Total Bilirubin 0.4, Gamma Glutamyl Transferase 34, Aspartate Amino Transf (AST/SGOT) 20, Alanine Aminotransferase (ALT/SGPT) 20, Alkaline Phosphatase 82, Ammonia 24, Lactate Dehydrogenase 89, Total Protein 7.2, Albumin 3.7, Albumin/Globulin Ratio 1.1, Acetaminophen Level < 2.0L 09/15/20 18:30: 09/16/20 05:08: Anion Gap 8, Glomerular Filtration Rate 38.8, Calcium Level 8.7L, Nucleated Red Blood Cells % (auto) 0.0, Magnesium Level 1.7L CBC/BMP Laboratory Tests 09/15/20 15:54 09/16/20 05:08 NELLA DIEHL MD September 16, 2020 09:30
--- NOTE | 2020-09-17 14:02 | IPNPDOC ---
Date Seen The patient was seen on 09/17/20. Progress Note SUBJECTIVE: no f/c/abd pain. c/o flank pain w hematuria cleared w cbi. IR to do left ureterel stent/?nephrostomy tube OBJECTIVE: PE: VITALS: SEE below GENERAL: sitting at 90 in bed. no distress HEENT: moist mm. No jugular venous distention (JVD), thyromegaly, cervical lymphadenopathy. HEART: S1, S2. Sinus bradycardia. ABDOMEN: Soft, nontender, nondistended. Positive bowel sounds. GENITOURINARY: Ibrahim catheter in place.cbi No costovertebral angle (CVA) tenderness. LUNGS: Clear to auscultation. No wheezing, rales or rhonchi. EXTREMITIES: No cyanosis, clubbing. SKIN: Warm, dry, well perfused, pink in color. LABORATORY DATA: see below Renal ultrasound: Severe bilateral hydroureter nephrosis right greater than left. ASSESSMENT AND PLAN: An 80-year-old male with history of hypertension, hyperlipidemia, reflux, glaucoma, hypothyroidism, benign prostatic hypertrophy (BPH), esophageal cancer, chronic sinus bradycardia, also on timolol for his glaucoma, presented to the emergency room due to abnormal blood work with a creatinine of 2, found to have bilateral hydroureter nephrosis, right greater than left, given intravenous (IV) fluids overnight and Ibrahim catheter placement. Telemetry overnight shows sinus bradycardia and 2 second sinus pause. Bilateral hydroureter nephrosis. Urologist Dr. Benjamin consulted s/p stents a Ibrahim catheter, creatinine to 1.8. Strict intake and output (I and O), daily weight, fluid restriction, nothing by mouth (NPO). IR for left stent and ?nephrostomy Sinus pause 2 seconds/sinus bradycardia secondary to atenolol and timolol eye drops. discontinued meds and has had no sinus pause since. Hypertension low blood pressure on no meds. stopped atenolol History of esophageal cancer. no acute issues Hypothyroidism. On Synthroid with normal TSH. Hyperlipidemia. On statin. History of reflux. Chronic. History of benign prostatic hypertrophy (BPH). Chronic disposition: await clearance from urology. still w cbi. VS, I&O, 24H, Fishbone Vital Signs/I&O Vital Signs Date Time Temp Pulse Resp B/P (MAP) Pulse Ox O2 Delivery O2 Flow Rate FiO2 09/17/20 13:49 57 20 99 Nasal Cannula 2.0 09/17/20 06:53 97.3 120/57 (78) I&O- Last 24 Hours up to 6 AM 09/17/20 06:00 Intake Total 1660 ml Output Total 3200 ml Balance -1540 ml Laboratory Data 24H LABS Laboratory Tests 2 09/17/20 05:32: Nucleated Red Blood Cells % (auto) 0.0, Anion Gap 9, Glomerular Filtration Rate 38.4, Calcium Level 8.9, Magnesium Level 1.9 09/17/20 09:03: Prothrombin Time 15.3H, Prothromb Time International Ratio 1.18, Activated Partial Thromboplast Time 28.7 CBC/BMP Laboratory Tests 09/17/20 05:32 NELLA DIEHL MD September 17, 2020 14:02
--- NOTE | 2020-09-17 15:24 | IPNPDOC ---
Text Note Date of Service The patient was seen on 09/17/20. NOTE Patient is postop day #1 cystoscopy, partial TURP of a median lobe of the pros rehman occluding the ureteral orifices and the bladder, and right ureteral stent placement. I was unable to see the left ureter even after giving flourescine and methylene blue. He is scheduled for nephrostomy tube an internalized stent placement today. Physical examination Well-developed well nourished gentleman in no apparent respiratory distress. He is alert and oriented 3. He has no CVA tenderness. His heart is regular and his lungs are clear. His abdomen is soft and nontender. His urine is a very lightish brown on extremely low CBI. His extremities show no cyanosis clubbing or edema. Plan: -Turn off the CBI today and the Ibrahim catheter should be up to be removed tomorrow morning -Patient hopefully to have a left nephrostomy tube placed today -Continue following his creatinine and nephrology consultation should be done as either an in or outpatient and we need to see if the stents are actually helping before deciding further management options VS,Ericbone, I+O VS, Fishbone, I+O Laboratory Tests 09/17/20 05:32 Vital Signs Date Time Temp Pulse Resp B/P (MAP) Pulse Ox O2 Delivery O2 Flow Rate FiO2 09/17/20 13:49 57 20 99 Nasal Cannula 2.0 09/17/20 06:53 97.3 120/57 (78) I&O- Last 24 Hours up to 6 AM 09/17/20 06:00 Intake Total 1660 ml Output Total 3200 ml Balance -1540 ml MODESTA BASSETT MD September 17, 2020 15:24
--- NOTE | 2020-09-17 15:48 | REP ---
INDICATION: HYDRONEPHROSIS. COMPARISON: 09/16/2020. TECHNIQUE: Real-time sonographic evaluation of the kidneys is performed. FINDINGS: Renal cortical echogenicity pattern is normal bilaterally and contours are smooth. There is moderate right hydronephrosis which appears mildly increased since the prior study. There is moderate to severe left hydronephrosis which appears essentially unchanged. The right kidney measures 12.1 x 6.5 x 5.9 cm. Left renal dimensions are 12.2 x 5.9 x 5.6 cm. Urinary bladder is collapsed. IMPRESSION: Moderate right hydronephrosis has mildly increased since prior study. Stable moderate to severe left hydronephrosis. <Electronically signed by Boone Goncalves > 09/17/20 [id number]
[2020-09-17] MEDS ORDERED: MIDAZOLAM INJ 2MG/2ML VIAL (J2250 PER 1MG) IV ONE (18:05)
[2020-09-17] MEDS ORDERED: fentaNYL 100 MCG/2 ML INJECTION (J3010) IV ONE (18:05)
[2020-09-17] MEDS ORDERED: NS 1,000 ML IV SCH (18:10)
[2020-09-17] MEDS ORDERED: ONDANSETRON 4MG/2ML VIAL IV PRN (18:10)
[2020-09-17] MEDS ORDERED: HYDROMORPHONE HCL 0.5 MG/ 0.5 ML SYRINGE (J1170 PER 1) IV PRN (18:10)
[2020-09-17] MEDS ORDERED: PERCOCET 5MG/325MG TAB PO PRN (18:10)
[2020-09-17] MEDS: SODIUM CHLORIDE 0.9% INJ 10 ML SYR IV PRN (18:51)
[2020-09-17] MEDS: SIMVASTATIN 20 MG TAB PO SCH (20:32)
[2020-09-17] MEDS: FERROUS SULFATE 325MG TAB PO SCH (20:32)
[2020-09-17] MEDS: TAMSULOSIN 0.4 MG CAP PO SCH (20:32)
[2020-09-18] MEDS: SODIUM CHLORIDE 0.9% INJ 10 ML SYR IV PRN ×2 (05:35→13:12)
[2020-09-18] MEDS: LEVOTHYROXINE 75MCG TABLET (0.075MG) PO SCH (05:35)
[2020-09-18 05:58] LABS: HEMATOCRIT 31.5 % (42.0-52.0); HEMOGLOBIN 10.4 g/dl (13.5-17.5); MEAN CORPUSCULAR HEMOGLOBIN 32.1 pg (27.0-33.0); MEAN CORPUSCULAR VOLUME 97.2 fl (80.0-96.0); PLATELET COUNT, AUTOMATED 139 10^3/uL (150-450); RED BLOOD COUNT 3.24 10^6/uL (4.30-6.10); WHITE BLOOD COUNT 6.5 10^3/uL (4.0-10.0)
[2020-09-18 06:00] VITALS: BP 121/73
[2020-09-18 07:14] LABS: CALCIUM LEVEL 9.5 MG/DL (8.8-10.2); CREATININE FOR GFR 1.59 MG/DL (0.70-1.30); GLOMERULAR FILTRATION RATE 44.8 (>35); MAGNESIUM LEVEL 1.8 MG/DL (1.8-2.4); POTASSIUM SERUM 3.8 MEQ/L (3.5-5.1)
[2020-09-18] MEDS: FINASTERIDE 5 MG TAB PO SCH (08:35)
[2020-09-18] MEDS: ACETAMINOPHEN 500 MG TAB PO SCH ×2 (08:35→22:08)
[2020-09-18] MEDS: PANTOPRAZOLE 40MG TAB (PROTONIX) PO SCH (08:35)
[2020-09-18] MEDS: BRIMONIDINE 0.15% OPHTH SOLN 5 ML OU SCH ×3 (08:37→22:19)
[2020-09-18] MEDS: SODIUM CHLORIDE 0.9% INJ 10 ML SYR IV SCH (08:37)
[2020-09-18] MEDS ORDERED: MIRALAX *UNIT DOSE* 17GM PACKET PO PRN (09:40)
--- NOTE | 2020-09-18 10:06 | IRPON ---
IR Postoperative Note Date Of Procedure: September 17, 2020 Time Of Procedure: 16:00 IR Postoperative Note IR Percutaneous nephrostomy catheter placement using fluoroscopic and ultrasound guidance. IR Nephrostogram and Ureterogram. IR Ultrasound of the left kidney. IR Moderate sedation. Clinical Information:Bilateral hydronephrosis of unknown etiology. Worsening renal failure. Failed left ureteral stenting by urology. Referred for left nephrostomy. Physician: Dr. Wall. Procedure: The patient was advised of the benefits, risks, and alternatives of the procedure and informed consent was obtained. A time out was performed with verification of the patient's name, MRN, site of procedure, and type of procedure to be performed. The patient was positioned in the prone position on the angiographic table. The site was prepped and draped in the usual sterile fashion. Moderate sedation was performed by the physician including the presence of an independent trained RN, who assisted in monitoring the patient's level of consciousness and physiological status. Following the administration of fentanyl and Versed, the physician spent 60 minutes of continuous [id number] time with the patient. A blow mold machine operator radiograph reveals double-J right ureteral stent. Ultrasound of the left kidney demonstrates hydronephrosis. The anticipated puncture site on the flank was anesthetized with lidocaine. Using ultrasound guidance, a left renal calyx was accessed with a 21 Gauge Chiba needle. A nephrostogram and ureterogram were performed demonstrating massive hydronephrosis, proximal hydroureter and proximal ureteral obstruction. A [place] wire was then advanced into the collecting system, under fluoroscopy guidance. The needle was then exchanged for a nonvascular introducer set. An Amplatz wire was then advanced into the ureter, under fluoroscopy guidance. A 10 [place] nephrostomy catheter was then advanced, [id number], under fluoroscopy guidance, into the renal collecting system. The pigtail was formed and locked in position. A final nephrostogram and ureterogram were performed confirming positioning of the pigtail within the renal collecting system. A final nephrostogram and ureterogram was performed which demonstrates massive hydronephrosis and proximal hydroureter with complete midureteral occlusion. The ureter is not patent to the urinary bladder. The catheter was sutured in position with 2-0 Prolene and a sterile dressing applied. The catheter was placed to gravity drainage. The patient tolerated the procedure well and was returned to the PRU in stable condition. EBL: < 5 mL. Complications:None. Conclusion: 1. Nephrostogram and Ureterogram demonstratemassive left-sided hydronephrosis and proximal hydroureter. The ureter is not patent to the bladder. 2. Successful left nephrostomy catheter placement. Patient to follow-up in IR clinic in 2 weeks. Patient may be a candidate for antegrade stenting after appropriate decompression. Thank you for this referral. Cc UZIEL Cano MD September 18, 2020 10:06
[2020-09-18] MEDS: DOCUSATE SODIUM 100MG CAPSULE PO SCH ×2 (12:00→22:08)
[2020-09-18] MEDS: cefTRIAXone SOD 1 GM in D5W MINI-BAG PLUS 50 ML IV SCH (12:00)
[2020-09-18 14:00] VITALS: BP 133/63
--- NOTE | 2020-09-18 14:49 | IPNPDOC ---
Text Note Date of Service The patient was seen on 09/18/20. NOTE Patient is postop day #2 placement of a right ureteral stent, and partial TURBT of the median lobe of the prostate. He is postop day #1 left nephrostomy tube placement by Dr. Wall. She felt severe proximal hydroureteronephrosis to a complete mid ureteral occlusion. His creatinine has come down to 1.56. Physical examination: This is a well-developed well-nourished gentleman lying in a hospital bed in no apparent respiratory distress. He is alert and oriented 3. His heart is regular in his lungs are clear. He has a left nephrostomy tube and no significant tenderness around. His abdomen is soft and nontender. His extremities show no cyanosis clubbing or edema. Plan -Remove the Ibrahim catheter for voiding trial and if patient can void he can be discharged from a urologic standpoint with the left nephrostomy tube -Patient to follow-up with Dr. Wall in 2 weeks and she will see at the time if he is a candidate for an internal stent once the decompression has happened -Patient to see nephrology and this can be done as an outpatient for long-term management since his creatinine is only come down to 1.59 from 2.2 -Follow-up with us in approximately 1 month to decide long-term management options VS,Hailey, I+O VS, Hailey, I+O Laboratory Tests 09/18/20 05:37 Vital Signs Date Time Temp Pulse Resp B/P (MAP) Pulse Ox O2 Delivery O2 Flow Rate FiO2 09/18/20 09:18 97 Room Air 09/18/20 06:00 97.9 90 17 121/73 (89) 09/17/20 17:10 2.0 I&O- Last 24 Hours up to 6 AM 09/18/20 06:00 Intake Total 1400 ml Output Total 1875 ml Balance -475 ml MODESTA BASSETT MD September 18, 2020 14:49
[2020-09-18 17:07] LABS: ALPHA 1 ANTITRYPSIN 140 mg/dL (101-187); ANTI-MITOCHONDRIAL ANTIBODY <20.0 Units (0.0-20.0); ANTI-SMOOTH MUSCLE ANTIBODY 6 Units (0-19); ANTINUCLEAR ANTIBODIES DIRECT Negative (Negative); HAPTOGLOBIN 198 mg/dL (34-355); LIVER-KIDNEY MICROSOMAL ABY <20.1 Units (0.0-20.0); TRANSFERRIN 213 mg/dL (177-329)
--- NOTE | 2020-09-18 20:20 | IPNPDOC ---
Date Seen The patient was seen on 09/18/20. Progress Note SUBJECTIVE: POD 1 left nephrostomy tube placement by Dr. Wall, POD 2 right ureteral stent / TURBT of medial lobe of prostate. Has had poor o/p after lara removed, urology notified and will watch per nursing reports. He denies pain, shortness of breath, abdominal pain, fevers, chills. OBJECTIVE: PHYSICAL EXAM: VITALS: SEE below GENERAL: NAD, sitting up in bed. AAOx 3 HEENT: moist mm. No jugular venous distention (JVD), thyromegaly, cervical lymphadenopathy. HEART: NSR, S1, S2. No M/R/G ABDOMEN: Soft, nontender, nondistended. Positive bowel sounds. GENITOURINARY: Lara catheter in place when I examined him with light yellow urine . No costovertebral angle (CVA) tenderness. BACK: left nephrostomy tube in place, bloody drainage LUNGS: Clear to auscultation. No wheezing, rales or rhonchi. EXTREMITIES: No cyanosis, clubbing. SKIN: Warm, dry, well perfused, pink in color. LABORATORY DATA: Please see below IMAGING: Renal ultrasound 09/17/20: Moderate right hydronephrosis has mildly increased since prior study. Stable moderate to severe left hydronephrosis. ASSESSMENT: An 80-year-old male with history of hypertension, hyperlipidemia, reflux, glaucoma, hypothyroidism, benign prostatic hypertrophy (BPH), esophageal cancer, chronic sinus bradycardiaadmitted for Severe bilateral hydroureteronephrosis (right greater than left). PLAN: Severe bilateral hydroureteronephrosis R>L- improving -POD 1 (09/17/20) left nephrostomy tube placement by Dr. Wall -POD 2 (09/16/20) right ureteral stent / TURBT of medial lobe of prostate -Last Renal US above -Removed the Lara catheter for voiding trial today, poor u/o per nursing. Urology made aware. If patient does well overnight with continued monitoring, can likely be discharged from a urologic standpoint with the left nephrostomy tube. -Patient to follow-up with Dr. Wall in 2 weeks and she will see at the time if he is a candidate for an internal stent once the decompression has happened -Patient to see nephrology and this can be done as an outpatient for long-term management since his creatinine is only come down to 1.59 from 2.2 -He will need f/u with urology in approximately 1 month to decide long-term management options -Monitoring daily Cr while inpatient UTI -Ucx pending -Ceftriaxone BPH -c/w home meds Constipation -started on BR Sinus pause 2 seconds/sinus bradycardia secondary to atenolol and timolol eye drops -HR much improved -Continue to hold meds Hypertension with hypotension this admission -Improved -Holding atenolol History of esophageal cancer. -F/u o/p -no acute issues Hypothyroidism -C/w Synthroid with normal TSH. Hyperlipidemia -statin GERD -PPI DVT px -hematuria s/p nephrostomy tube so holding AC. Teds. scds DISPOSITION: When medically improved, plan is d/c home to f/u with urology and IR as o/p. If Cr doesn't improve further, will recommend nephrology referral as o/p. VS, I&O, 24H, Fishbone Vital Signs/I&O Vital Signs Date Time Temp Pulse Resp B/P (MAP) Pulse Ox O2 Delivery O2 Flow Rate FiO2 09/18/20 14:00 98.0 60 18 133/63 (86) 97 Room Air 09/17/20 17:10 2.0 l I&O- Last 24 Hours up to 6 AM 09/18/20 06:00 Intake Total 1400 ml Output Total 1875 ml Balance -475 ml Laboratory Data 24H LABS Laboratory Tests 2 09/18/20 05:37: Nucleated Red Blood Cells % (auto) 0.0, Anion Gap 10, Glomerular Filtration Rate 44.8, Calcium Level 9.5, Magnesium Level 1.8 09/18/20 12:24: Urine Color REDH, Urine Appearance CLOUDYH, Urine pH 8.0, Urine Specific Pull[place] 1.010, Urine Protein 3+H, Urine Glucose (UA) 1+H, Urine Ketones NEGATIVE, Urine Blood 3+H, Urine Nitrite NEGATIVE, Urine Bilirubin NEGATIVE, Urine Urobilinogen 0.2, Urine Leukocyte Esterase 2+H, Urine WBC (Auto) 36H, Urine RBC (Auto) TNTCH, Urine Hyaline Casts (Auto) 0, Urine Bacteria (Auto) 1+H, Urine Squamous Epithelial Cells 0, Urine Sperm (Auto) CBC/BMP Laboratory Tests 09/18/20 05:37 Microbiology Microbiology 09/18/20 Urine Culture, Received Pending Iva Scott MD September 18, 2020 20:20
[2020-09-18] MEDS ORDERED: SENNA 8.6 MG TAB (SENOKOT) PO SCH (21:00)
[2020-09-18 22:00] VITALS: BP 158/68
[2020-09-18] MEDS: FERROUS SULFATE 325MG TAB PO SCH (22:07)
[2020-09-18] MEDS: SIMVASTATIN 20 MG TAB PO SCH (22:07)
[2020-09-18] MEDS: TAMSULOSIN 0.4 MG CAP PO SCH (22:08)
[2020-09-19 06:00] VITALS: BP 156/74
[2020-09-19] MEDS: LEVOTHYROXINE 75MCG TABLET (0.075MG) PO SCH (06:23)
[2020-09-19] MEDS: SODIUM CHLORIDE 0.9% INJ 10 ML SYR IV PRN (06:33)
[2020-09-19 06:52] LABS: HEMATOCRIT 30.7 % (42.0-52.0); HEMOGLOBIN 10.3 g/dl (13.5-17.5); MEAN CORPUSCULAR HEMOGLOBIN 32.3 pg (27.0-33.0); MEAN CORPUSCULAR HGB CONC 33.6 g/dl (32.0-36.5); MEAN CORPUSCULAR VOLUME 96.2 fl (80.0-96.0); PLATELET COUNT, AUTOMATED 140 10^3/uL (150-450); RED BLOOD COUNT 3.19 10^6/uL (4.30-6.10); WHITE BLOOD COUNT 6.3 10^3/uL (4.0-10.0)
[2020-09-19 07:35] LABS: CALCIUM LEVEL 8.7 MG/DL (8.8-10.2); CREATININE FOR GFR 1.61 MG/DL (0.70-1.30); GLOMERULAR FILTRATION RATE 44.2 (>35); MAGNESIUM LEVEL 1.7 MG/DL (1.8-2.4); POTASSIUM SERUM 3.6 MEQ/L (3.5-5.1)
[2020-09-19] MEDS ORDERED: MAGNESIUM OXIDE 400MG TAB (MAG-OX) PO SCH (09:00)
[2020-09-19] MEDS ORDERED: MAGN400T2 PO (09:00)
[2020-09-19] MEDS ORDERED: DOK1CAP7 PO (09:00)
[2020-09-19] MEDS: FINASTERIDE 5 MG TAB PO SCH (09:20)
[2020-09-19] MEDS: SODIUM CHLORIDE 0.9% INJ 10 ML SYR IV SCH (09:20)
[2020-09-19] MEDS: DOCUSATE SODIUM 100MG CAPSULE PO SCH (09:21)
[2020-09-19] MEDS: BRIMONIDINE 0.15% OPHTH SOLN 5 ML OU SCH (09:21)
[2020-09-19] MEDS: ACETAMINOPHEN 500 MG TAB PO SCH (09:21)
[2020-09-19] MEDS: PANTOPRAZOLE 40MG TAB (PROTONIX) PO SCH (09:21)
[2020-09-19] MEDS: cefTRIAXone SOD 1 GM in D5W MINI-BAG PLUS 50 ML IV SCH (11:30)
[2020-09-19 14:00] VITALS: BP 133/71
--- NOTE | 2020-09-19 18:06 | DS.PDOC ---
Discharge Summary General Date of Admission September 15, 2020 at 09:32 Date of Discharge 09/19/20 Attending Physician: Iva Scott MD Discharge Summary HISTORY OF PRESENT ILLNESS: This is an 81 y/o male with a pmh of htn, hld, gerd, glaucoma, hypothyroidism, bph and esophageal cancer who presents to the ed after being called by his pcp to do so. Patient states he saw his pcp 1-2 weeks ago for routine bloodwork which found an elevated creatinine. Patient then underwent renal us and ct abd/pelvis at outside center and was called by his doc to come to our emergency department. Patient is unsure what the imaging showed. As of my exam of pt, he is resting comfortably and states that he feels good. Patient states that he has had no recent illness, has had good oral intake, and feels as though he has been urinating and empyting his bladder fully. Patient denies any fever, chills, chest pain, sob, dysuria, hematuria, abd pain, n/v/d/c. Of note, patient found to have cr of 2.1, k of 5.3, and severe b/l hydroureteronephrosis on renal us in our ed. HOSPITAL COURSE: For severe bilateral hydroureteronephrosis R>L patient had right ureteral stent / TURBT of medial lobe of prostate 09/16/20. REnal US showed persistent left hydronephrosis and on 09/17/20 left nephrostomy tube placement by Dr. Wall in IR. Last renal US showed some improvement. He had lara catheter removed for v oiding trial and did well. UA was initially positive but UCx later came back neg, abx were stopped. Per urology, due to patient's improvement and passing of voiding trial with improvement of ELAINE to a degree, he was ok for discharge. He will need follow-up with Dr. Wall in 2 weeks and she will see at the time if he is a candidate for an internal stent once the decompression has happened. Nephrology discussed case with me over the phone due to persistently high Cr of 1.6. It did not seem that much u/o was from left nephrostomy tube. Dr. Monique will see as new patient in 1 week after discharge and reimage. He will f/u with urology in 1 month. Other events included episode of pause on tele and hypotension, BB was stopped and he should f/u with PCP to resume. At discharge on 09/19/20, no acute complaints and was much improved. PAST MEDICAL HISTORY: htn, hld, gerd, glaucoma, hypothyroidism, bph and esophageal cancer PAST SURGICAL HISTORY: 1. [Colonoscopy]. 2. [Endoscopy]. SOCIAL HISTORY: Marital status: []. Resides in: [Home with ] Tobacco use:[Denies] ETOH: [Denies] Illicit drug use: [Denies] FAMILY HISTORY: Reviewed with pt - non pertinent DISCHARGE MEDICATIONS: Please see below PHYSICAL EXAM: VITALS: SEE below GENERAL: NAD, sitting up in bed. AAOx 3 HEENT: moist mm. No jugular venous distention (JVD), thyromegaly, cervical lymphadenopathy. HEART: NSR, S1, S2. No M/R/G ABDOMEN: Soft, nontender, nondistended. Positive bowel sounds. GENITOURINARY: No costovertebral angle (CVA) tenderness. BACK: left nephrostomy tube in place, little bloody drainage LUNGS: Clear to auscultation. No wheezing, rales or rhonchi. EXTREMITIES: No cyanosis, clubbing. SKIN: Warm, dry, well perfused, pink in color. LABORATORY DATA: Please see below IMAGING: Renal ultrasound 09/17/20: Moderate right hydronephrosis has mildly increased since prior study. Stable moderate to severe left hydronephrosis. ASSESSMENT: An 80-year-old male with history of hypertension, hyperlipidemia, reflux, glaucoma, hypothyroidism, benign prostatic hypertrophy (BPH), esophageal cancer, chronic sinus bradycardiaadmitted for Severe bilateral hydroureteronephrosis (right greater than left). PLAN: Severe bilateral hydroureteronephrosis R>L- improving -POD 1 (09/17/20) left nephrostomy tube placement by Dr. Wall -POD 2 (09/16/20) right ureteral stent / TURBT of medial lobe of prostate -Last Renal US above -Removed the Lara catheter for voiding trial 09/18/20 and he did well, good u/o -Patient to follow-up with Dr. Wall in 2 weeks and she will see at the time if he is a candidate for an internal stent once the decompression has happened -Patient to see nephrology as new patient in 1 week, reimaging will take place then -He will need f/u with urology in approximately 1 month to decide long-term management options -Monitoring daily Cr while inpatient Pos UA -Ucx neg -Ceftriaxone stopped BPH -c/w home meds Constipation -started on BR Sinus pause 2 seconds/sinus bradycardia secondary to atenolol and timolol eye drops -HR much improved -Continue to hold BB after d/c Hypertension with hypotension this admission -Improved -Holding atenolol History of esophageal cancer. -F/u o/p -no acute issues Hypothyroidism -C/w Synthroid with normal TSH. Hyperlipidemia -statin GERD -PPI DISPOSITION: D/c home to f/u with urology, IR and nephrology as o/p. TIME SPENT ON DISCHARGE: 35 minutes. Vital Signs/I&Os Vital Signs Date Time Temp Pulse Resp B/P (MAP) Pulse Ox O2 Delivery O2 Flow Rate FiO2 09/19/20 14:00 98.4 72 16 133/71 (91) 98 Room Air 09/17/20 17:10 2.0 I&O- Last 24 Hours up to 6 AM 09/19/20 06:00 Intake Total 1780 ml Output Total 1850 ml Balance -70 ml Laboratory Data Labs 24H Laboratory Tests 2 09/19/20 06:36: Nucleated Red Blood Cells % (auto) 0.0, Anion Gap 7L, Glomerular Filtration Rate 44.2, Calcium Level 8.7L, Magnesium Level 1.7L CBC/BMP Laboratory Tests 09/19/20 06:36 Microbiology Microbiology 09/18/20 Urine Culture - Final, Complete Discharge Medications Scheduled Acetaminophen (Acetaminophen) 500 Mg Tablet, 500 MG PO BID, (Reported) Aspirin (Ecotrin) 81 Mg Tablet.dr, 81 MG PO DAILY, (Reported) Brimonidine Tartrate (Brimonidine Tartrate) 0.2% 5ML Drops, 1 DROP OU TID, (Reported) Docusate Sodium (Dok) 100 Mg Capsule, 100 MG PO BID Ferrous Sulfate (Iron) 325 Mg Tablet, 325 MG PO QHS, (Reported) Finasteride (Finasteride) 5 Mg Tablet, 5 MG PO DAILY, (Reported) Glucosamine HCl (Glucosamine HCl) 1,500 Mg Tablet, 1,500 MG PO BID, (Reported) Levothyroxine Sodium (Levothyroxine Sodium) 75 Mcg Tablet, 75 MCG PO QAM, (Reported) Magnesium Oxide (Magnesium Oxide) 400 Mg Tablet, 400 MG PO BID Pantoprazole Sodium (Pantoprazole Sodium) 40 Mg Tablet.dr, 40 MG PO DAILY, (Reported) Potassium Chloride (Potassium Chloride) 20 Meq Tab.er.prt, 20 MEQ PO QHS, (Rep orted) Simvastatin (Simvastatin) 20 Mg Tablet, 20 MG PO QHS, (Reported) Tamsulosin HCl (Flomax) 0.4 Mg Capsule, 0.4 MG PO QHS, (Reported) Scheduled PRN Polyvinyl Alcohol (Artificial Tears) 15 Ml Drops, 1 DROP OU QID PRN for DRY EYES, (Reported) Allergies Coded Allergies: No Known Allergies (Unverified , 09/14/20) Iva Scott MD September 19, 2020 18:06
== END 2020-09-19 15:12 | disposition home health service (06) | DRG 713 ==
LOC: M ED 16:11 → M ED INP 16:12 → ENRESERV 21:51 → M MSPAV 22:43 → OBSVTOIN 09-15 09:32
PROVIDERS: ADMIT General Practice; ATTEND Internal Medicine
PROC: 0T768DZ Dilation of Right Ureter with Intraluminal Device, Via Natural or Artificial Opening Endoscopic (ICD-10-PCS; 2020-09-15)
PROC: 0VB08ZZ Excision of Prostate, Via Natural or Artificial Opening Endoscopic (ICD-10-PCS; principal; 2020-09-15 11:30)
PROC: 0T778DZ Dilation of Left Ureter with Intraluminal Device, Via Natural or Artificial Opening Endoscopic (ICD-10-PCS; 2020-09-17)
DX: C61 Malignant neoplasm of prostate (principal); N17.9 Acute kidney failure, unspecified; N13.1 Hydronephrosis with ureteral stricture, not elsewhere classified; N39.0 Urinary tract infection, site not specified; I10 Essential (primary) hypertension; K21.9 Gastro-esophageal reflux disease without esophagitis; E03.9 Hypothyroidism, unspecified; N40.0 Benign prostatic hyperplasia without lower urinary tract symptoms; Z85.01 Personal history of malignant neoplasm of esophagus; K59.00 Constipation, unspecified; I95.9 Hypotension, unspecified; E78.5 Hyperlipidemia, unspecified; Z79.899 Other long term (current) drug therapy; Z79.82 Long term (current) use of aspirin; E87.5 Hyperkalemia; R33.9 Retention of urine, unspecified; H40.9 Unspecified glaucoma; B96.29 Other Escherichia coli [E. coli] as the cause of diseases classified elsewhere

== ENCOUNTER → 2020-10-02 | Outpatient (POV) | payer MEDICARE ==
[~2020-10-02] VITALS: Ht 180.3 cm; Wt 100.9 kg
[~2020-10-02] MED LIST: ACET500T15 PO; ATEN25TA PO; BRIM0.2S13 OU; CVS1500T PO; DOK1CAP7 PO; ECOT81TA5 PO; FERR325T82 PO; FINA5TAB2 PO; FLOM0.4C39 PO; FURO40TA2 PO; LEVO75TA4 PO; MAGN400T2 PO; PANT40TA29 PO; POLYOPD OU; POTA20TA6 PO; SIMV20TA22 PO; TIMO0.5S29 OU
[2020-10-02 08:20] VITALS: BP 133/82
--- NOTE | 2020-10-03 08:30 | IRPN ---
[facility] IR Progress Note IR Progress Note DATE: October 02, 2020 FOLLOW-UP: 80-year-old male with bilateral obstructive uropathy of unknown origin, seen by urology with right-sided ureteral stent placement but failed left sided stent placement. Was referred to me for left-sided nephrostomy. Patient is doing well status post nephrostomy. He states there is 150 ML of clear urine drainage from his left nephrostomy daily. He does flush the catheter daily. No flank pain. Patient continues under the care of urology. However, there is no working diagnosis as to the reason for the obstruction. ON EXAMINATION: Left nephrostomy in place. No redness on the skin. No tenderness around the area. Labs: 09/19/2020 hemoglobin 10.3 hematocrit 30.7 WBC 6.3 platelets 140. Sodium 141 potassium 3.6 BUN 29 creatinine 1.61 GFR 44.2 (improved from 33.4 on 09/14/2020) IMPRESSION: Patient with bilateral ureteral obstruction of unknown etiology, under the care of urology with right-sided stent placement but failed left stent placement by urology. Patient currently has a left nephrostomy in place. We discussed the risks and benefits of exchanging this left nephrostomy to an a ntegrade left nephroureteral stent. This will be a staged procedure, initially with antegrade nephroureteral stent catheter placement followed by complete internalization, providing he tolerates the stent. Patient to follow-up with urology for urodynamic evaluation for reason for obstruction and potential therapies. We have scheduled the patient for antegrade nephroureteral stenting. Thank you for this referral. Cc Dr. Ashlyn Benjamin Allergies Coded Allergies: No Known Allergies (Unverified , 09/14/20) VS,Fishbone, I+O VS, Fishbone, I+O Vital Signs Date Time Temp Pulse Resp B/P (MAP) Pulse Ox O2 Delivery O2 Flow Rate FiO2 10/02/20 08:20 98.1 89 20 133/82 (99) 96 Room Air UZIEL BRAR MD October 03, 2020 08:30
== END ==
LOC: M TMIRPOV 08:04
PROVIDERS: ATTEND Radiology Diagnostic Radiology
DX: Z48.816 Encounter for surgical aftercare following surgery on the genitourinary system (principal); N13.9 Obstructive and reflux uropathy, unspecified

== ENCOUNTER → 2020-10-03 | Outpatient (REF) | payer MEDICARE | LOC: M PLALAB 16:48 | PROVIDERS: ATTEND Nurse Practitioner Women's Health | DX: Z12.5 Encounter for screening for malignant neoplasm of prostate (principal) | CPT/HCPCS: 36415; G0103; G0463 ==

== ENCOUNTER → 2020-10-22 | Outpatient (CLI) | payer MEDICARE ==
[~2020-10-22] MED LIST changes: +ISOVUE-300 61% 50ML VIAL As Ordered ONE; +LIDOCAINE 1% MDV 20ML VIAL As Ordered ONE; +MAGN400T3 PO; +MIDAZOLAM INJ 2MG/2ML VIAL (J2250 PER 1MG) As Ordered ONE; +MM S100C PO; +NS 1,000 ML IV SCH; +ONDANSETRON 4MG/2ML VIAL IV PRN; +PERCOCET 5MG/325MG TAB PO PRN; +ceFAZolin 1GM VIAL (J0690 PER 500MG) As Ordered ONE; +ceFAZolin SOD 1 GM in D5W MINI-BAG PLUS 50 ML IV ONE; +diphenhydrAMINE 50MG/ML VIAL (J1200) As Ordered ONE; +fentaNYL 100 MCG/2 ML INJECTION (J3010) As Ordered ONE
[2020-10-22 12:41] LABS: HEMATOCRIT 29.8 % (42.0-52.0); HEMOGLOBIN 9.7 g/dl (13.5-17.5); MEAN CORPUSCULAR HEMOGLOBIN 31.6 pg (27.0-33.0); MEAN CORPUSCULAR HGB CONC 32.6 g/dl (32.0-36.5); MEAN CORPUSCULAR VOLUME 97.1 fl (80.0-96.0); PLATELET COUNT, AUTOMATED 197 10^3/uL (150-450); RED BLOOD COUNT 3.07 10^6/uL (4.30-6.10); WHITE BLOOD COUNT 5.4 10^3/uL (4.0-10.0)
[2020-10-22 12:53] LABS: INR 1.1; PROTHROMBIN TIME 14.4 SECONDS (12.5-14.3)
--- NOTE | 2020-10-22 13:00 | IRHP ---
[facility] IR Pre-Procedure H & P General Date of Service: Oct 22, 2020 Procedure: Same Day Surgery Interval History and Physical I have seen the patient and reviewed last H & P performed within 30 days. There is no significant interval change. History of Present Illness Chief Complaint The patient is a 80-year-old male admitted with a reason for visit of Ureteral Obstruction. PRE-PROCEDURE DIAGNOSIS: Ureteral obstruction HEART: Normal rate. LUNGS: Normal breathing at rest. ASA Classification ASA Classification: III-Severe systemic dis. Mallampati Score: II NPO: Yes Problems with prior sedation: No Obstructive Sleep Apnea: Yes Plan moderate sedation Allergies Coded Allergies: No Known Allergies (Unverified , 09/14/20) Home Medications Scheduled Acetaminophen (Acetaminophen), 500 MG PO BID, (Reported) Aspirin (Ecotrin), 81 MG PO DAILY, (Reported) Brimonidine Tartrate (Brimonidine Tartrate), 1 DROP OU TID, (Reported) Docusate Sodium (Dok), 100 MG PO BID Ferrous Sulfate (Iron), 325 MG PO QHS, (Reported) Finasteride (Finasteride), 5 MG PO DAILY, (Reported) Glucosamine HCl (Glucosamine HCl), 1,500 MG PO BID, (Reported) Levothyroxine Sodium (Levothyroxine Sodium), 75 MCG PO QAM, (Reported) Magnesium Oxide (Magnesium Oxide), 400 MG PO BID Pantoprazole Sodium (Pantoprazole Sodium), 40 MG PO DAILY, (Reported) Simvastatin (Simvastatin), 20 MG PO QHS, (Reported) Tamsulosin HCl (Flomax), 0.4 MG PO QHS, (Reported) Scheduled PRN Polyvinyl Alcohol (Artificial Tears), 1 DROP OU QID PRN for DRY EYES, (Reported) Discontinued Medications Potassium Chloride (Potassium Chloride), 20 MEQ PO QHS, (Reported) Discontinued Reason: Pt states not taking VS, I&O, 24H, Fishbone Vital Signs/I&O Vital Signs Date Time Temp Pulse Resp B/P (MAP) Pulse Ox O2 Delivery O2 Flow Rate FiO2 10/22/20 11:02 97.6 80 16 95 Room Air Laboratory Data 24H LABS Laboratory Tests 2 10/22/20 11:38: Nucleated Red Blood Cells % (auto) 0.0, Prothrombin Time 14.4H, Prothromb Time International Ratio 1.10 CBC/BMP Laboratory Tests 10/22/20 11:38 UZIEL BRAR MD Oct 22, 2020 13:00
[2020-10-22 15:30] VITALS: BP 160/85
--- NOTE | 2020-10-25 12:34 | IRPON ---
IR Postoperative Note Date Of Procedure: Oct 22, 2020 Time Of Procedure: 16:00 IR Postoperative Note IR Left Nephrostomy catheter exchange. IR Attempted left antegrade nephroureteral stenting. IR Left Nephrostogram and ureterogram. IR Moderate sedation. Clinical information: Patient with bilateral hydronephrosis, status post right ureteral stenting by urology, was referred for left nephrostomy due to failed left retrograde ureteral stenting. Patient presents today after left nephrostomy decompression for possible antegrade ureteral stenting. Physician: Dr. Wall. Procedure: The patient was advised of the benefits, risks and alternatives of the procedure and informed consent was obtained. The time-out was performed with verification of the patient's name, MRN, site of procedure and type of procedure to be performed. The patient was positioned in the prone position on the angiographic table. The site was prepped and draped in the usual sterile fashion. Moderate sedation was performed by the physician including the presence of an independent trained RN who assisted and monitored the patient's level of consciousness and physiologic status. Following the administration of fentanyl and Versed , the physician spent 60 minutes of continuous face to face time with the patient. A tack maker radiograph reveals a left nephrostomy catheter in expected location. An initial nephrostogram and ureterogram was performed through the preexisting catheter confirming pigtail positioned in the renal collecting system. Marked decompression of left-sided hydronephrosis. No contrast is seen to pass beyond the ureteropelvic junction. The catheter was cut, a glide wire was passed into the renal collecting system, under fluoroscopy guidance. The preexisting nephrostomy catheter was removed over the wire. A 5 Croatian glide catheter was advanced over the wire, under fluoroscopy guidance and used to catheterize the left renal pelvis. The catheter in conjunction with the wire was then used to catheterize the proximal ureter and mid ureter. This was relatively easy. After successful catheterization to the distal third of the left ureter, there was complete obstruction. The wire was deviating around a circular/oval obstruction, which may represent a mass or a stone. The catheter was removed over the wire. A Croatian Beni sheath was advanced over the wire, under fluoroscopic guidance, to the distal third of the left ureter. The catheter was readvanced over the wire, under fluoroscopy guidance and used to try to recannulate the obstructed distal third of the left ureter. Intermittent injection of contrast confirmed intraureteral location. However, further distal left ureteral catheterization was not possible. Catheter and sheath were removed of the wire. A new 10-Croatian nephrostomy catheter was advanced, over the wire, under fluoroscopy guidance, into the renal collecting system. A final nephrostogram and ureterogram was performed confirming position of the pigtail in the renal pelvis with marked improvement in hydronephrosis. Ureterogram demonstrates UPJ obstruction. The catheter was secured in position with 2-0 Prolene and a sterile dressing was applied to the site. The catheter was placed gravity drainage. The patient tolerated the procedure well and was returned to the PRU in stable condition. EBL: Less than 5 ml. Complications: None. Conclusion: 1. Nephrostogram and ureterogram demonstrate UPJ obstruction. 2. Successful recanalization of UPJ obstruction and catheterization to the distal third of the left ureter. Beyond which catheterization was not possible. There is a round/oval obstruction in the distal third of the left ureter, which may be a mass or stone. This may be amenable to repeat attempt at retrograde ureteroscopy and direct visualization. 2. Successful left nephrostomy catheter exchange. Patient to return in 12 weeks for routine catheter exchange. Thank you this referral. Cc UZIEL Correa MD Oct 25, 2020 12:34
== END ==
LOC: M IRPRO 10:54
PROVIDERS: ATTEND Radiology Diagnostic Radiology
DX: N13.30 Unspecified hydronephrosis (principal); N13.9 Obstructive and reflux uropathy, unspecified; Z79.82 Long term (current) use of aspirin; Z79.890 Hormone replacement therapy; Z79.899 Other long term (current) drug therapy
CPT/HCPCS: 36415; 50435; 85027; 85610; 99152; 99153; C1729; C1769; C1887; C1894; J0690; J1200; J2250; J3010; Q9967

== ENCOUNTER 2020-11-01 18:18 | Inpatient (IN) | payer MEDICARE ==
[~2020-11-01] VITALS: Ht 180.3 cm; Wt 90.9 kg
[~2020-11-01 18:18] MED LIST changes: +DOK1CAP4 PO; -DOK1CAP7 PO; -ISOVUE-300 61% 50ML VIAL As Ordered ONE; -LIDOCAINE 1% MDV 20ML VIAL As Ordered ONE; -MAGN400T3 PO; -MIDAZOLAM INJ 2MG/2ML VIAL (J2250 PER 1MG) As Ordered ONE; -MM S100C PO; -NS 1,000 ML IV SCH; -ONDANSETRON 4MG/2ML VIAL IV PRN; -PERCOCET 5MG/325MG TAB PO PRN; -ceFAZolin 1GM VIAL (J0690 PER 500MG) As Ordered ONE; -ceFAZolin SOD 1 GM in D5W MINI-BAG PLUS 50 ML IV ONE; -diphenhydrAMINE 50MG/ML VIAL (J1200) As Ordered ONE; -fentaNYL 100 MCG/2 ML INJECTION (J3010) As Ordered ONE
[2020-11-01 19:57] LABS: BASO % 0.2 % (0.0-1.0); EOS % 0.2 % (0.0-3.0); HEMATOCRIT 38.3 % (42.0-52.0); HEMOGLOBIN 12.3 g/dl (13.5-17.5); LYMPH # 0.5 10^3/uL (1.5-5.0); LYMPH % 5.2 % (24.0-44.0); MEAN CORPUSCULAR HEMOGLOBIN 30.8 pg (27.0-33.0); MEAN CORPUSCULAR HGB CONC 32.1 g/dl (32.0-36.5); MONO # 1.2 10^3/uL (0.0-0.8); MONO % 11.2 % (2.0-8.0); NEUTROPHILS # 8.2 10^3/uL (1.5-8.5); PLATELET COUNT, AUTOMATED 171 10^3/uL (150-450); RED BLOOD COUNT 3.99 10^6/uL (4.30-6.10); WHITE BLOOD COUNT 10.3 10^3/uL (4.0-10.0)
[2020-11-01 20:10] LABS: CALCIUM LEVEL 9.1 MG/DL (8.8-10.2); CREATININE FOR GFR 6.19 MG/DL (0.70-1.30); GLOMERULAR FILTRATION RATE 9.3 (>35); POTASSIUM SERUM 5.1 MEQ/L (3.5-5.1)
[2020-11-01] MEDS ORDERED: MM S100C PO (20:24)
[2020-11-01] MEDS ORDERED: MAGN400T3 PO (20:24)
[2020-11-01 20:28] LABS: ALBUMIN 2.8 GM/DL (3.2-5.2); BILIRUBIN,DIRECT 0.3 MG/DL (0.0-0.2); BILIRUBIN,TOTAL 0.6 MG/DL (0.2-1.0); TOTAL PROTEIN 6.9 GM/DL (6.4-8.2)
[2020-11-01] MEDS ORDERED: HOME MED LIST COMPLETE! XX SCH (20:30)
[2020-11-01 20:37] LABS: APPEARANCE, URINE TURBID (CLEAR); BACTERIA, URINE AUTO 3+ (NEGATIVE); BILIRUBIN, URINE AUTO NEGATIVE (NEGATIVE); BLOOD, URINE BLOOD 2+ (NEGATIVE); COLOR, URINE YELLOW (YELLOW); GLUCOSE, URINE (UA) AUTO NEGATIVE (NEGATIVE); KETONE, URINE AUTO NEGATIVE (NEGATIVE); LEUKOCYTE ESTERASE, URINE AUTO 3+ (NEGATIVE); NITRITE, URINE AUTO NEGATIVE (NEGATIVE); PROTEIN, URINE AUTO 2+ mg/dL (NEGATIVE); RBC, URINE AUTO 32 /HPF (0-3); SQUAMOUS EPITHELIAL CELL UR AU 1 /HPF (0-6); UROBILINOGEN, URINE AUTO 0.2 mg/dL (0.0-2.0); WBC, URINE AUTO TNTC /HPF (0-3)
[2020-11-01] MEDS ORDERED: cefTRIAXone SOD 1 GM in D5W MINI-BAG PLUS 50 ML IV ONE (20:50)
[2020-11-01] MEDS: DOCUSATE SODIUM 100MG CAPSULE PO SCH ×2 (21:00)
[2020-11-01 21:13] LABS: RSV AMPLIFICATION NEGATIVE (NEGATIVE)
--- NOTE | 2020-11-01 22:05 | REPVR ---
PROCEDURE INFORMATION: Exam: US Duplex Right Lower Extremity Veins, Limited Exam date and time: 11/01/2020 8:50 PM Age: 80 years old Clinical indication: Pain; Leg, lower; Right; Additional info: Rle pain R/O dvt TECHNIQUE: Imaging protocol: Real-time Duplex ultrasound of the Right Lower Extremity with 2-D bryan scale, color Doppler flow and spectral waveform analysis with image documentation. Limited exam was focused on the right lower extremity veins. COMPARISON: RENAL US 09/17/2020 3:12 PM FINDINGS: Right deep veins: Unremarkable. The common femoral, femoral, proximal profunda femoral are patent without thrombus. Normal Doppler waveforms. Normal compressibility and/or augmentation response. Occlusive thrombus in the right popliteal vein to the mid peroneal vein with no color flow. Right superficial veins: Unremarkable. Saphenofemoral junction is patent without thrombus. Soft tissues: Unremarkable. IMPRESSION: Positive for deep venous thrombosis in the right lower extremity. Occlusive thrombus in the right popliteal vein to the mid peroneal vein. Electronically signed by: Yasmany Sun On 11/01/2020 22:05:16 PM
--- NOTE | 2020-11-01 22:19 | REPVR ---
PROCEDURE INFORMATION: Exam: US Retroperitoneal Limited, Kidneys Exam date and time: 11/01/2020 8:50 PM Age: 80 years old Clinical indication: Abnormal findings; Abnormal lab test; Abnormal kidney function lab tests; Prior surgery; Surgery date: 1-6 months; Surgery type: Patient states had lt nephrostomy tube placed in September and RT stent placed in September as well; Additional info: Renal failure w/l nephrostomy eval for hydro TECHNIQUE: Imaging protocol: Real-time ultrasound of the retroperitoneum with image documentation. Examination was focused on the kidneys. COMPARISON: RENAL US 09/17/2020 3:12 PM FINDINGS: Right kidney: Right kidney measures 13.2 x 7.7 x 7 cm. Normal echogenicity. Moderate to severe hydronephrosis. Mild right hydroureter. Possible stent at the lower pole of the right kidney. Left kidney: Left kidney measures 12.3 x 5.4 x 5.8 cm. Normal echogenicity. Limited visualization of the nephrostomy tube. Bladder: There is a stent in the bladder. IMPRESSION: Right moderate to severe hydronephrosis. Electronically signed by: Yasmany Sun On 11/01/2020 22:18:58 PM
[2020-11-01 23:43] LABS: INR 1.28; PROTHROMBIN TIME 16.3 SECONDS (12.5-14.3)
[2020-11-01 23:44] LABS: PARTIAL THROMBOPLASTIN TIME 30.3 SECONDS (24.2-38.5)
[2020-11-02] VITALS (7 sets, daily range): BP systolic 111–158; BP diastolic 71–100
[2020-11-02] MEDS ORDERED: MAALOX 30 ML SUSP *UDC PO PRN (00:10)
[2020-11-02] MEDS ORDERED: NS 1,000 ML IV SCH (00:10)
[2020-11-02] MEDS ORDERED: HEPARIN SOD (PORCINE) 5000UNITS/ML 1ML VIAL/SYRINGE IV PRN (00:10)
[2020-11-02] MEDS ORDERED: ACETAMINOPHEN TAB 650MG DOSE (2X325MG) PO PRN (00:10)
[2020-11-02] MEDS: HEPARIN DRIP 25,000 UNITS in IV 1 EA IV SCH ×2 (00:10→17:26)
--- NOTE | 2020-11-02 01:20 | HPEPDOC ---
[facility] Medical History & Physical Date of Admission Nov 02, 2020 Date of Service: Nov 02, 2020 Attending Physician: IFTIKHAR CUADRA MD History and Physical CHIEF COMPLAINT: Abnormal labs HISTORY OF PRESENT ILLNESS: . Mr. Alexis is an 80-year-old male who came to the ER at the urging of urology secondary to abnormal labs with creatinine of 5 yesterday. The patient has a history of bilateral hydronephrosis secondary to outlet obstruction with placement of left nephrostomy tube, right ureteral stent and TURP. This was all initially done in September when he presented with bilateral hydronephrosis and acute on chronic kidney injury.. He has since followed up with urology and nephrology with chronic kidney disease stage III. There was an attempt to place a left ureteral stent on October 22, but this was unsuccessful for the second time. He had some type of imaging done yesterday. The patient's called it a PET scan. There is no report available in this system. He also had blood work done. Urology contacted the patient's and urged her to bring the patient to the ER because of the elevation of creatinine, but he refused yesterday. She finally convinced him to come to the ER today. ER provider spoke with Dr. Monique today. She related that the left nephrostomy tube usually put out around 200 mL's per day. It appears that this is functioning as it should with greater than 250 mL's noted so far today. Renal ultrasound showed moderate to severe right hydronephrosis with mild hydroureter. Creatinine on arrival at the ER today was 6.19. UA was turbid with positive blood, 3+ leukocyte Estrace, too numerous to count white blood cells and 3+ bacteria. ER also contacted Dr. Diez, urology. He recommended that the patient have a Ibrahim catheter placed and he be kept nothing by mouth after midnight in case there was a need for surgical intervention. At the time of my evaluation, the patient complains of increasing weakness over the last several weeks. His states that he does not walk around the house much at all and when he does walk it is very slowly. He was also complaining of right lower extremity swelling and pain. He denied any chest pain or shortness of breath. O2 sat was 97-99% on room air. Ultrasound of the right lower extremity showed a DVT, which was occlusive, in the right popliteal vein to the mid peroneal vein. Patient was also noted to have an elevated lipase at 840. He denied abdominal pain, nausea or vomiting. White blood cell count was 10.3. Hemoglobin and hematocrit 12.3 and 38.3. Platelets within normal at 171. Patient was noted to be tachycardic with pulse around 122. PAST MEDICAL HISTORY: 1. 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 2. Chronic kidney disease stage III. 3. Hypertension. 4. Hyperlipidemia. 5. Gastroesophageal reflux disease. 6. Glaucoma. 7. Hypothyroid. 8. Benign prostatic hypertrophy. 9. Esophageal cancer PAST SURGICAL HISTORY: 1. Cystoscopy. 2. Colonoscopy. 3. Endoscopy. 4. Ureteral stent placement. 5. TURP of the medial lobe of the prostate. 6. Left nephrostomy tube. 7. Cystoscopy with attempt to place ureteral stent. 8. Port-A-Cath placement SOCIAL HISTORY: Tobacco use: Never ETOH: Denies Illicit drug use: Denies Patient lives with: His FAMILY HISTORY: Family history was thoroughly reviewed and found to be noncontributory REVIEW OF SYSTEMS: Complete 10 point review systems is negative except as noted above PHYSICAL EXAMINATION: Patient is seen in the ER, lying on the stretcher.. He is alert and oriented x 3 but complains of being uncomfortable and tired. HEENT is WNL. Neck is supple but there is some swelling noted at the right lower neck around the medial clavicle. Lungs are clear to auscultation. Heart regular rate and rhythm without murmur. Abdomen is soft, non-tender to palpation with bowel sounds positive. Extremities with ROM intact and strength equal bilaterally. 1+ lower extremity edema. Patient complains of tenderness with movement and palpation of the right lower extremity at the upper calf and posterior knee. Pedal pulses are positive. Skin is warm and dry with no obvious rash or lesion. Neuro: grossly intact. Psych: As described ASSESSMENT AND PLAN: 1. Acute kidney injury with chronic kidney disease secondary to outlet obstruction with right hydronephrosis and hydroureter. Will continue Ibrahim catheter. Monitor intake and output closely. We'll continue the patient on gentle IV fluids. Patient will be nothing by mouth for possible surgical intervention in the morning. Urology to evaluate. Nephrology has also been consulted. Will continue finasteride and Flomax when patient is tolerating by mouth. Avoid nephrotoxic medications. Recheck renal function in the morning. 2. Right lower extremity DVT. Will start the patient on heparin drip per protocol. Will discuss by mouth anticoagulation after patient has had any necessary surgical interventions. 3. Possible urinary tract infection with abnormal UA. Will empirically treat with Rocephin. Adjust antibiotics as needed based on final cultures. 4. Elevated lipase with etiology unclear. Patient is currently nothing by mouth for possible surgical intervention. Continue on gentle IV fluids. Recheck lipase in the morning. 5. Anemia in the setting of chronic kidney disease with iron deficiency. Continue iron supplementation when patient tolerating by mouth. Monitor hemoglobin and hematocrit daily. 6. Hyperlipidemia. Continue statin. 7. Hypothyroid. Continue hormone replacement. 8. Hyponatremia. Recheck labs in the morning with gentle IV fluids. 9. DVT prophylaxis. Heparin drip. CODE STATUS: CODE STATUS was discussed with the patient who desires to be considered a DNR. His states that he has filled out a POLST form. , She would act as his surrogate if he were unable to make his decisions. Patient is considered high risk for further deterioration including development of sepsis, septic shock, or end-stage renal disease. He is admitted as inpatient and expected to remain at least 2-3 midnight. Vital Signs Vital Signs Date Time Temp Pulse Resp B/P (MAP) Pulse Ox O2 Delivery O2 Flow Rate FiO2 11/02/20 00:18 119 96 11/02/20 00:15 124/76 (92) 11/01/20 23:23 98.0 11/01/20 18:18 22 Room Air Laboratory Data Labs 24H Laboratory Tests 2 11/01/20 19:37: Immature Granulocyte % (Auto) 3.2H, Neutrophils (%) (Auto) 80.0H, Lymphocytes (%) (Auto) 5.2L, Monocytes (%) (Auto) 11.2H, Eosinophils (%) (Auto) 0.2, Basophils (%) (Auto) 0.2, Neutrophils # (Auto) 8.2, Lymphocytes # (Auto) 0.5L, Monocytes # (Auto) 1.2H, Eosinophils # (Auto) 0.0, Basophils # (Auto) 0.0, Nucleated Red Blood Cells % (auto) 0.0, Total Bilirubin 0.6, Direct Bilirubin 0.3H, Aspartate Amino Transf (AST/SGOT) 43H, Alanine Aminotransferase (ALT/SGPT) 32, Alkaline Phosphatase 163H, Total Protein 6.9, Albumin 2.8L, Albumin/Globulin Ratio 0.7, Lipase 840H 11/01/20 19:43: POC Glucose (Misc Panel) 111H, POC Sodium (Misc Panel) 138, POC Potassium (Misc Panel) 5.2H, POC Chloride (Misc Panel) 102, POC Total CO2 (Misc Panel) 19.0L, POC Blood Urea Nitrogen (Misc Panel 139H, POC Ionized Calcium (Misc Panel) 4.8, POC Creatinine (Misc Panel) 6.7H, POC Hematocrit (Misc Panel) 37.0L 11/01/20 19:50: Anion Gap 10, Glomerular Filtration Rate 9.3L, Calcium Level 9.1 11/01/20 20:15: Urine Color YELLOW, Urine Appearance TURBIDH, Urine pH 5.0, Urine Specific [place] 1.010, Urine Protein 2+H, Urine Glucose (Auto)(UA) NEGATIVE, Urine Ketones (Auto) NEGATIVE, Urine Blood 2+H, Urine Nitrite NEGATIVE, Urine Bilirubin NEGATIVE, Urine Urobilinogen 0.2, Urine Leukocyte Esterase (Auto) 3+H, Urine WBC (Auto) TNTCH, Urine RBC (Auto) 32H, Urine Hyaline Casts (Auto) 0, Urine Bacteria (Auto) 3+H, Urine Squamous Epithelial Cells 1, Urine Sperm (Auto) , Coronavirus (COVID-19)(PCR) NEGATIVE, Influenza Type A (RT-PCR) NEGATIVE, Influenza Type B (RT-PCR) NEGATIVE, Respiratory Syncytial Virus (PCR) NEGATIVE 11/01/20 23:19: Prothrombin Time 16.3H, Prothromb Time International Ratio 1.28, Activated Partial Thromboplast Time 30.3 CBC/BMP Laboratory Tests 11/01/20 19:37 11/01/20 19:50 Microbiology Microbiology 11/01/20 Urine Culture, Received Pending Home Medications Scheduled Acetaminophen (Acetaminophen) 500 Mg Tablet, 500 MG PO BID Aspirin (Ecotrin) 81 Mg Tablet.dr, 81 MG PO DAILY Brimonidine Tartrate (Brimonidine Tartrate) 0.2% 5ML Drops, 1 DROP OU TID Docusate Sodium (Stool Softener) 100 Mg Capsule, 100 MG PO BID Ferrous Sulfate (Iron) 325 Mg Tablet, 325 MG PO QHS Finasteride (Finasteride) 5 Mg Tablet, 5 MG PO DAILY Glucosamine HCl (Glucosamine HCl) 1,500 Mg Tablet, 1,500 MG PO BID Levothyroxine Sodium (Levothyroxine Sodium) 75 Mcg Tablet, 75 MCG PO QAM Magnesium Oxide (Magnesium Oxide) 400 Mg Tablet, 400 MG PO DAILY Pantoprazole Sodium (Pantoprazole Sodium) 40 Mg Tablet.dr, 40 MG PO DAILY Polyvinyl Alcohol (Artificial Tears) 15 Ml Drops, 1 DROP OU BID Simvastatin (Simvastatin) 20 Mg Tablet, 20 MG PO QHS Tamsulosin HCl (Flomax) 0.4 Mg Capsule, 0.4 MG PO QHS Allergies Coded Allergies: No Known Allergies (Unverified , 09/14/20) A-FIB/CHADSVASC A-FIB History Current/History of A-Fib/PAF?: No TIFFANIE TILLMAN Nov 02, 2020 01:20
[2020-11-02] MEDS: DOCUSATE SODIUM 100MG CAPSULE PO SCH ×3 (01:29→08:04)
[2020-11-02] MEDS: SIMVASTATIN 20 MG TAB PO SCH (01:58)
[2020-11-02] MEDS: TAMSULOSIN 0.4 MG CAP PO SCH (01:59)
[2020-11-02] MEDS: FERROUS SULFATE 325MG TAB PO SCH (01:59)
[2020-11-02] MEDS: POLYVINYL ALCOHOL OPHTH SOLN 15 ML(LIQUITEARS) OU SCH ×3 (03:05→21:56)
[2020-11-02 07:15] LABS: HEMATOCRIT 36.4 % (42.0-52.0); MEAN CORPUSCULAR HEMOGLOBIN 31.5 pg (27.0-33.0); MEAN CORPUSCULAR VOLUME 95.5 fl (80.0-96.0); PLATELET COUNT, AUTOMATED 160 10^3/uL (150-450); RED BLOOD COUNT 3.81 10^6/uL (4.30-6.10); WHITE BLOOD COUNT 10.5 10^3/uL (4.0-10.0)
[2020-11-02 07:25] LABS: INR 1.3; PROTHROMBIN TIME 16.5 SECONDS (12.5-14.3)
[2020-11-02 07:52] LABS: ALBUMIN 2.5 GM/DL (3.2-5.2); ALT/SGPT 31 U/L (12-78); BILIRUBIN,TOTAL 0.5 MG/DL (0.2-1.0); BLOOD UREA NITROGEN 133 MG/DL (7-18); CALCIUM LEVEL 8.6 MG/DL (8.8-10.2); CARBON DIOXIDE LEVEL 19 MEQ/L (21-32); CHLORIDE LEVEL 105 MEQ/L (98-107); CREATININE FOR GFR 5.97 MG/DL (0.70-1.30); FERRITIN 1147 NG/ML (26-388); GLOMERULAR FILTRATION RATE 9.7 (>35); GLUCOSE, FASTING 109 MG/DL (70-100); IRON (FE) 27 UG/DL (65-175); LIPASE 908 U/L (73-393); MAGNESIUM LEVEL 2.6 MG/DL (1.8-2.4); PERCENT SATURATION 16.4 % (19.7-50.0); PHOSPHORUS LEVEL 4.5 MG/DL (2.5-4.9); POTASSIUM SERUM 5.2 MEQ/L (3.5-5.1); SODIUM LEVEL 137 MEQ/L (136-145); TOTAL IRON BINDING CAPACITY 165 UG/DL (250-450); TOTAL PROTEIN 6.6 GM/DL (6.4-8.2); URIC ACID 10.7 MG/DL (3.5-7.2)
[2020-11-02] MEDS: LEVOTHYROXINE 75MCG TABLET (0.075MG) PO SCH (08:03)
[2020-11-02] MEDS: ASPIRIN 81MG ENTERIC TABLET PO SCH (08:03)
[2020-11-02] MEDS: PANTOPRAZOLE 40MG TAB (PROTONIX) PO SCH (08:03)
[2020-11-02] MEDS: FINASTERIDE 5 MG TAB PO SCH (08:03)
[2020-11-02] MEDS ORDERED: MAGNESIUM OXIDE 400MG TAB (MAG-OX) PO SCH (09:00)
[2020-11-02 09:39] LABS: PTH INTACT 178.3 PG/ML (18.5-88.0); TOTAL 25(OH) VITAMIN D 9.4 NG/ML (30.0-100.0); VITAMIN B12 LEVEL 405 PG/ML (247-911)
[2020-11-02 09:40] LABS: FOLATE 3.6 NG/ML (>5.4)
--- NOTE | 2020-11-02 10:56 | REP ---
INDICATION: check for improvement in R hydro and cause of obstruction. COMPARISON: None. TECHNIQUE: Standard helical technique without the administration of intravenous contrast FINDINGS: Lung bases are clear Limited evaluation of the solid intra-abdominal organs show no gross abnormalities. There is cholelithiasis. Limited evaluation of the pancreas and adrenal glands show no gross abnormalities. There is a right-sided double pigtail stent in the kidney and renal collecting system. There is a nephrostomy tube on the left. There is moderate right-sided hydronephrosis and no evidence of left-sided hydronephrosis. There is bilateral perinephric stranding left greater than right. The left kidney is small. There is perivesicular stranding in the pelvis. There is air density in the urinary bladder. Patient also has a Ibrahim balloon in place. The urinary bladder wall appears thickened. There is left Carmen renal density which extends into the left hemipelvis. There is no evidence of free intraperitoneal air. There is a trace amount of free pelvic fluid. Evaluation of the osseous structures show multiple vertebral body compression deformities of various grades. Chronic degenerative changes are also seen. IMPRESSION: 1. The examination is limited without intravenous or oral bowel preparatory contrast. 2. Bilateral renal findings as described above. I suspect the increased density seen on the left represents changes from previous nephrostomy tube placement which was done 10/22/2020. Without intravenous contrast administration I cannot accurately assess for active bleeding. A resolving hematoma or even urinoma cannot be ruled out. 3. Findings in the urinary bladder as described above. This may need further evaluation. 4. Other findings as described above. <Electronically signed by Samuel Watters > 11/02/20 2325
--- NOTE | 2020-11-02 11:30 | SMCUROLCON ---
Urology Consultation General Date of Consultation 11/02/20 Reason For Consultation This patient is seen for Acute On Chronic Renal Failure. History of Present Illness This is an 80 y/o M w/ CKD, HTN, HL, GERD, hypothyroidism, a hx of esophageal cancer, and b/l hydroureteronephrosis 2/2 muscle invasive bladder cancer s/p recent L perc neph tube placement and R ureteral stent placement. He is admitted for ELAINE, w/ his Cr up to 6.2 (from 1.6 at the time of discharge on his last admission). He denies abd or flank pain. He notes that he has barely been eating or drinking the last few days. He denies fevers or chills. He denies any difficulty voiding. He notes that his nephrostomy tube has been draining. Past Medical History Medical History 1. BPH. 2. Chronic kidney disease stage III. 3. Hypertension. 4. Hyperlipidemia. 5. Gastroesophageal reflux disease. 6. Glaucoma. 7. Hypothyroid. 8. Esophageal cancer Surgical Hstory 1. Cystoscopy with partial TURP and R ureteral stent placement on 09/15/20. 2. L nephrostomy tube placement (last changed 10/22/20). 3. Port-A-Cath placement Medications Current Medications Current Medications Medications (Trade) Dose Ordered Sig/[place]on Route PRN Reason Start Time Stop Time Status Last Admin Dose Admin Acetaminophen (Tylenol Tab) 650 mg Q4H PRN PO MILD PAIN or TEMP > 101 11/02/20 00:10 Al Hydrox/Mg Hydrox/Simethicone (Mylanta) 30 ml DAILY PRN PO DYSPEPSIA 11/02/20 00:10 Artificial Tears (Akwa Tears) 1 drop BID OU 11/01/20 21:00 11/02/20 08:03 Aspirin (Ecotrin) 81 mg DAILY PO 11/02/20 09:00 11/02/20 08:03 Ceftriaxone Sodium 1 gm/ Dextrose 50 ml @ 100 mls/hr Q24H IV 11/02/20 21:00 Docusate Sodium (Colace) 100 mg BID PO 11/01/20 21:00 11/02/20 08:03 Docusate Sodium (Colace) 100 mg BID PO 11/01/20 21:00 11/02/20 08:04 Ferrous Sulfate (Ferrous Sulfate) 325 mg QHS PO 11/01/20 21:00 11/02/20 01:59 Finasteride (Proscar) 5 mg DAILY PO 11/02/20 09:00 11/02/20 08:03 Heparin Sodium (Porcine) (Heparin) ASDIRECTED PRN IV SEE LABEL COMMENTS 11/02/20 00:10 11/02/20 07:52 Heparin Sodium (Porcine) 18370 units/IV Miscellaneous Supplies 250 ml @ 10 mls/hr Q24H IV 11/02/20 00:10 11/02/20 00:10 Home Med (Med Rec Complete!) ASDIRECTED XX 11/01/20 20:30 11/01/20 20:28 DC Levothyroxine Sodium (Synthroid) 75 mcg QAM PO 11/02/20 09:00 11/02/20 08:03 Magnesium Oxide (Mag-Ox) 400 mg DAILY PO 11/02/20 09:00 Non-Formulary Medication (Heparin Iv Rate Change Documentation ml/ Hr) ASDIRECTED XX 11/02/20 00:10 11/07/20 00:09 11/02/20 07:54 Pantoprazole Sodium (Protonix) 40 mg DAILY PO 11/02/20 09:00 11/02/20 08:03 Simvastatin (Zocor) 20 mg QHS PO 11/01/20 21:00 11/02/20 01:58 Sodium Chloride 1,000 ml @ 75 mls/hr [id number] IV 11/02/20 00:10 11/02/20 01:38 Tamsulosin HCl (Flomax) 0.4 mg QHS PO 11/01/20 21:00 11/02/20 01:59 Allergies Allergies: Coded Allergies: No Known Allergies (Unverified , 09/14/20) Review of Systems Constitutional: Reports: Weakness; Denies: Fever, Chills Pulmonary: Denies: Dyspnea, Cough Cardiovascular: Denies Chest Pain, Denies Palpitations Gastrointestinal: Denies: Nausea, Vomiting, Abdominal Pain Genitourinary: Denies: Dysuria, Frequency Musculoskeletal: Denies: Back Pain Psych: Reports: Mood Normal Physical Examination General Exam: Cooperative, No Acute Distress ENT EXAM: Atraumatic Chest Exam: Normal air movement Heart Exam: Rate Normal Abdomen Exam: Soft; No: Tenderness Male Exam catheter in place, draining clear yellow urine; L neph tube in place and draining clear yellow urine Skin Exam: Nl turgor and temperature Neuro Exam: Normal Speech Psych Exam: Mood NL Vital Signs/I&O Vital Signs Date Time Temp Pulse Resp B/P (MAP) Pulse Ox O2 Delivery O2 Flow Rate FiO2 11/02/20 05:44 96.8 116 20 116/73 (87) 97 Room Air I&O- Last 24 Hours up to 6 AM 11/02/20 06:00 Intake Total 50 ml Output Total 650 ml Balance -600 ml Laboratory Data 24H Labs Laboratory Tests 2 11/01/20 19:37: Immature Granulocyte % (Auto) 3.2H, Neutrophils (%) (Auto) 80.0H, Lymphocytes (%) (Auto) 5.2L, Monocytes (%) (Auto) 11.2H, Eosinophils (%) (Auto) 0.2, Basophils (%) (Auto) 0.2, Neutrophils # (Auto) 8.2, Lymphocytes # (Auto) 0.5L, Monocytes # (Auto) 1.2H, Eosinophils # (Auto) 0.0, Basophils # (Auto) 0.0, Nucleated Red Blood Cells % (auto) 0.0, Total Bilirubin 0.6, Direct Bilirubin 0.3H, Aspartate Amino Transf (AST/SGOT) 43H, Alanine Aminotransferase (ALT/SGPT) 32, Alkaline Phosphatase 163H, Total Protein 6.9, Albumin 2.8L, Albumin/Globulin Ratio 0.7, Lipase 840H 11/01/20 19:43: POC Glucose (Misc Panel) 111H, POC Sodium (Misc Panel) 138, POC Potassium (Misc Panel) 5.2H, POC Chloride (Misc Panel) 102, POC Total CO2 (Misc Panel) 19.0L, POC Blood Urea Nitrogen (Misc Panel 139H, POC Ionized Calcium (Misc Panel) 4.8, POC Creatinine (Misc Panel) 6.7H, POC Hematocrit (Misc Panel) 37.0L 11/01/20 19:50: Anion Gap 10, Glomerular Filtration Rate 9.3L, Calcium Level 9.1 11/01/20 20:15: Urine Color YELLOW, Urine Appearance TURBIDH, Urine pH 5.0, Urine Specific [place] 1.010, Urine Protein 2+H, Urine Glucose (Auto)(UA) NEGATIVE, Urine Ketones (Auto) NEGATIVE, Urine Blood 2+H, Urine Nitrite NEGATIVE, Urine Bilirubin NEGATIVE, Urine Urobilinogen 0.2, Urine Leukocyte Esterase (Auto) 3+H, Urine WBC (Auto) TNTCH, Urine RBC (Auto) 32H, Urine Hyaline Casts (Auto) 0, Urine Bacteria (Auto) 3+H, Urine Squamous Epithelial Cells 1, Urine Sperm (Auto) , Coronavirus (COVID-19)(PCR) NEGATIVE, Influenza Type A (RT-PCR) NEGATIVE, Influenza Type B (RT-PCR) NEGATIVE, Respiratory Syncytial Virus (PCR) NEGATIVE 11/01/20 23:19: Prothrombin Time 16.3H, Prothromb Time International Ratio 1.28, Activated Partial Thromboplast Time 30.3 11/02/20 06:47: Prothrombin Time 16.5H, Prothromb Time International Ratio 1.30, Activated Partial Thromboplast Time 41.0H, Nucleated Red Blood Cells % (auto) 0.0, Anion Gap 13, Glomerular Filtration Rate 9.7L, Uric Acid 10.7H, Calcium Level 8.6L, Phosphorus Level 4.5, Magnesium Level 2.6H, Iron Level 27L, Total Iron Binding Capacity 165L, Transferrin % Saturation 16.4L, Ferritin 1147H, Total Bilirubin 0.5, Aspartate Amino Transf (AST/SGOT) 44H, Alanine Aminotransferase (ALT/SGPT) 31, Alkaline Phosphatase 150H, Total Protein 6.6, Total Protein (PEP) 6.6, Albumin 2.5L, Albumin/Globulin Ratio 0.6, Lipase 908H CBC/BMP Laboratory Tests 11/01/20 19:37 11/01/20 19:50 11/02/20 06:47 Microbiology Microbiology 11/01/20 Urine Culture, Received Pending Assessment This is an 80 y/o M w/ b/l hydroureteronephrosis 2/2 locally advanced high grade bladder cancer s/p L neph tube placement (changed 10/22/20), and R ureteral stent placement (09/15/20), admitted for acute on chronic renal failure. I reviewed his CT A/P and there is mild to moderate R hydronephrosis w/ the ureteral stent in appropriate position. There is no L hydronephrosis. I suspect his ELAINE is partially due to the obstruction to the R kidney but also likely 2/2 to poor PO intake for the last few days. I recommended hydrating him and seeing if his Cr improves. After a discussion w/ nephrology they feel something should be done today. I would not recommend exchanging his stent as he has already failed stent placement w/ the stent only being in for about 6 wks. The same thing will likely happen in a shorter period of time w/ a new stent as his bladder cancer is likely progressing. I therefore recommend placing a R neph tube. Plan - nephrology following and recommends decompression of the R kidney - therefore recommend IR R neph tube placement - discussed w/ Dr. Wall and she has agreed to do this today - continue hydration per primary team - ok to d/c Ibrahim when the neph tube is placed as most of the UOP will come out of the b/l neph tubes - NPO until R neph tube placement TAMAR STOKES MD Nov 02, 2020 09:36
[2020-11-02] MEDS ORDERED: fentaNYL 100 MCG/2 ML INJECTION (J3010) As Ordered ONE (11:34)
[2020-11-02] MEDS ORDERED: diphenhydrAMINE 50MG/ML VIAL (J1200) As Ordered ONE (11:34)
[2020-11-02] MEDS ORDERED: ISOVUE-300 61% 50ML VIAL As Ordered ONE (11:35)
[2020-11-02] MEDS ORDERED: LIDOCAINE 1% MDV 20ML VIAL As Ordered ONE (11:35)
[2020-11-02] MEDS ORDERED: MIDAZOLAM INJ 2MG/2ML VIAL (J2250 PER 1MG) As Ordered ONE (11:35)
[2020-11-02] MEDS ORDERED: ceFAZolin 1GM VIAL (J0690 PER 500MG) As Ordered ONE (11:39)
--- NOTE | 2020-11-02 12:43 | IRMSE ---
[facility] IR Moderate Sedation Eval. Date and Time Date: Nov 02, 2020 Time: 12:43 ASA Classification ASA Classification: III-Severe systemic dis. Mallampati Score: II NPO: Yes Obstructive Sleep Apnea: No Interval Plan: moderate sedation UZIEL BRAR MD Nov 02, 2020 12:43
--- NOTE | 2020-11-02 13:12 | CR ---
CONSULTATION DATE: 11/02/2020 REQUESTING PHYSICIAN: Dr. Terry Dumont CONSULTING PHYSICIAN: Dr. Monique REASON FOR CONSULTATION: Acute kidney injury superimposed on CKD stage 3 HISTORY OF PRESENT ILLNESS: Mr. Alexis is known to me from the office. He recently established care with me this spring. He is an 80-year-old male with past medical history of esophageal cancer; status post chemotherapy, radiation therapy, also history of hypertension, hypothyroidism, dyslipidemia and other comorbid conditions mentioned below. He has had known bilateral obstructive uropathy since at least April of 2020 (creatinine was 1.4 at that time and he was seen by Dr. Benjamin for bilateral hydronephrosis and had a cystoscopy done at that time with no acute lesions found). Subsequently in late August of 2020, he had a CT scan at [facility] that showed worsening bilateral hydroureteronephrosis and lab work showed worsening renal function. He was admitted to [facility] and was seen by Dr. Benjamin and Dr. Wall. He ultimately had right ureteral stent placed by urology and a left nephrostomy placed by interventional radiology. He has had poor output from the nephrostomy. His reports on average the nephrostomy puts out about 200 cc of urine a day or less. He was pending internalization of the left nephrostomy and was also pending a right ureteral exchange. He was also recently diagnosed with bladder cancer and pending oncology consultation. He had a interval renal ultrasound done on October 05, 2020 in the [place] area, which showed a moderate right hydronephrosis and resolved left hydronephrosis. His latest outpatient creatinine was 2.1 on October 11 when I last saw him in the office. Patient is now admit with worsening renal failure with blood urea nitrogen of 133 and creatinine of 6, and nephrology evaluation was requested. Patient tells me that previously he had good urinary voids, but over the past week or so, he has had diminishing urine when he voids. He was sent to the Emergency Room because of worsening outpatient labs. PAST MEDICAL HISTORY: Obstructive uropathy with left-sided nephrostomy and with right ureteral stent, recently diagnosed with bladder cancer, history of esophageal cancer, prostatic hypertrophy, CKD stage 3B, hypertension, dyslipidemia, GERD, glaucoma, hypothyroidism, anemia, secondary hyperparathyroidism of renal origin, peripheral venous insufficiency. PAST SURGICAL HISTORY: Cystoscopy, colonoscopy, endoscopy, right ureteral stent placement, left nephrostomy placement, transurethral resection of the medial lobe of the prostate, Gris cath placement, skin cancer removal. FAMILY HISTORY: Mother due to heart disease. SOCIAL HISTORY: He is , lives with his . Denies alcohol, tobacco or illicit drugs. ALLERGIES: No known drug allergies. HOME MEDICATIONS: Include: 1. Tylenol p.r.n. 2. Aspirin 81 mg daily. 3. Ferrous sulfate 325 mg one daily. 4. Finasteride 5 mg at bedtime. 5. Glucosamine one tablet b.i.d. 6. Levothyroxine 75 mcg daily. 7. Protonix 40 mg daily. 8. Simvastatin 20 mg daily. 9. Flomax 0.4 mg one capsule at bedtime. 10.Magnesium 400 mg daily. REVIEW OF SYSTEMS: CONSTITUTIONAL: He denies fevers or chills. EYES: He denies visual changes or tearing. ENT: He denies rhinorrhea or epistaxis. CARDIAC: He denies chest pain or palpitations. Reports chronic unchanged leg edema. RESPIRATORY: He reports dyspnea with exertion, but denies shortness of breath at rest. Denies cough. GI: Reports GERD. Denies nausea or vomiting. : Please see HPI. Patient has extensive history of obstructive uropathy and recently diagnosed cancer of the bladder. ENDOCRINE: Reports secondary hyperparathyroidism of renal origin and reports hypothyroidism. HEMATOLOGIC: Reports anemia and iron deficiency. MUSCULOSKELETAL: He denies acute myalgias or arthralgias. NEUROLOGIC: Denies seizures or syncope. SKIN: Reports history of skin cancer. Denies any acute rashes or ulcers. The remainder of the review of systems is negative or as per HPI. PHYSICAL EXAMINATION: VITAL SIGNS: Temperature 97.7, pulse 116, respiratory rate 20, blood pressure 111/73, saturating 94% on room air. INTAKE/OUTPUT: Urine output is recorded as 950 cc. GENERAL: Patient is seen lying in bed, elderly male awake, alert, oriented x3, and in no distress. He is somewhat slow to respond and needs repeated prompting, but then answers questions appropriately. HEENT: Extraocular muscles are intact. Dentition is poor. Jugular veins are elevated. HEART: Sounds are regular, S1, S2. There is chronic 1+ leg edema bilaterally, which is unchanged as compared to his prior office visits. RESPIRATORY: Show clear breath sounds. No crackles or rales. ABDOMEN: Soft and nontender. GENITOURINARY: Shows Ibrahim catheter. There is also a left-sided nephrostomy present. Both have minimal amount of clear yellow urine. NEUROLOGIC: He is awake, alert and cooperative with physical exam. Follows commands, answers questions appropriately. Oriented to person, place and situation. LABORATORY STUDIES: Sodium 137, potassium 5.2, bicarbonate 19, BUN 133, creatinine 5.9. Uric acid 10.7. Magnesium 2.6. Transferrin saturation 16%. PTH 178. Hemoglobin 12.0. Urine culture is pending. IMAGING STUDIES: CT of the abdomen and pelvis non-contrast done today shows moderate right-sided hydronephrosis and no left-sided hydronephrosis. There is bilateral perinephric stranding; left greater than right. The left kidney is small. Venous Duplex of the lower extremities shows DVT in the right lower extremity. INPATIENT MEDICATIONS: Patient is on normal saline at 75 cc an hour, Ceftriaxone 1 gram I.V. daily. He is on a Heparin drip. Tylenol p.r.n., Mylanta p.r.n., aspirin 81 mg daily, Colace 100 mg p.o. b.i.d., ferrous sufflate 325 mg p.o. q.h.s., Finasteride 5 mg p.o. daily, Levothyroxine 75 mcg p.o. in the morning, Protonix 40 mg p.o. daily, Simvastatin 20 mg p.o. q.h.s., Flomax 0.4 mg p.o. q.h.s. PROBLEMS: 1. Acute kidney injury superimposed on CKD stage 3B: Patient's baseline creatinine is high 1's to 2 (discharge creatinine on September 19 was 1.6 and last creatinine in the office on October 11 was 2.1). He has acute kidney injury secondary to obstructive uropathy. The right kidney has ongoing moderate hydronephrosis. I believe most of his function and clearance comes from the right kidney as his left kidney is small, has poor function and poor urine output over the past several weeks. He is for probable right-sided nephrostomy and further intervention will be as per urology or interventional radiology to relieve his right-sided obstruction. He was also recently diagnosed with cancer infiltrating the bladder and the prostate, and has not yet followed up with oncology. 2. Metabolic acidosis and mild hyperkalemia: He is presently on normal saline at 75 cc an hour. I am going to switch that to half normal saline with 75 mEq of sodium bicarbonate to run at 50 cc an hour. 3. Right lower extremity DVT: Patient is presently on a Heparin drip, which can easily be held for any pending interventions for his right-sided hydronephrosis. 4. Iron deficiency anemia: No need for I.V. iron at this time. 5. Hyperuricemia: Uric acid level is 10.7. He does not take any urate-lowering therapy as an outpatient. We will start him on medication as his renal function improves. 6. Hypermagnesemia: His magnesium supplementation has been stopped. Thank you for involving me in the care of Mr. Alexis. Plan of care was discussed with Dr. Dumont. I will be happy to follow along with you.
[2020-11-02] MEDS ORDERED: SODIUM BICARBONATE 75 MEQ in NS 0.45% 1,000 ML IV SCH (14:00)
--- NOTE | 2020-11-02 15:57 | ECGEPIP ---
[facility] Test Date: 2020-11-02 Pat Name: CARLOS MANUEL SMITH Department: Room: [place] [address] Gender: Male Dean Of Men: JULIO : 1940 Requested By: KIRK AGOSTO Order Number: [id number] Reading MD: Nicolette Bermeo Measurements Intervals Hulen Rate: 106 P: 254 MS: QRS: -14 QRSD: 98 T: 30 QT: 300 QTc: 398 Interpretive Statements Atrial flutter with variable AV block Inferior infarct , age undetermined// R wave now not visible in aVF / SEEN ON PRIOR RHYTHM CHANGE AND POSSIBLE IWMI SINCE 09/15/20 ALSO NEW STTW ABN CHANGE Electronically Signed on 11-02-2020 15:56:59 EDT by Nicolette Bermeo
[2020-11-02 16:06] LABS: CK-MB VALUE MASS < 1.0 NG/ML (<3.6); CPK CREATINE PHOSPHOKINASE 32 U/L (39-308); MB/CK RELATIVE INDEX 3.12 (< OR =4); TROPONIN I < 0.02 NG/ML (< 0.10)
[2020-11-02] MEDS: MORPHINE 2 MG/ML 1ML VIAL (J2270) IV PRN (17:30)
--- NOTE | 2020-11-02 19:27 | IPNPDOC ---
Date Seen The patient was seen on 11/02/20. Progress Note SUBJECTIVE: Rishabh was seen and examined this morning by the hospital service while lying in bed. He reports pain in bilateral lower extremities similar to when he presented earlier this morning. He is currently nothing by mouth in preparation for possible procedure later today. He denies any current or overnight fever, chills, night sweats, chest pain, palpitations, shortness of breath, nausea, abdominal pain, flank pain, or suprapubic pain. OBJECTIVE PHYSICAL EXAMINATION: VITAL SIGNS: Please see below. GENERAL: Thin ill-appearing relatively weak elderly male lying in bed. Appears in mild to moderate discomfort. HEENT: Normocephalic. Well-healed scar over the left forehead. Noninjected, anicteric sclera. PERRLA. Oral cavity: Mucous membranes somewhat dry. Poor dentition. No pharyngeal erythema or exudate appreciated. Neck: Thin, trachea midline. CARDIOVASCULAR: Tachycardic rate, regular rhythm. Normal S1, S2. No murmurs or rubs are appreciated. Chest: There are diffusely scattered dark brown-colored papules over the inferior aspect of the neck and chest. Port in place in right upper chest. RESPIRATORY: Decreased tidal volume ABDOMINAL: Left nephrostomy tube in place with small amount of light yellow- colored urine present. Genitourinary: Ibrahim catheter in place with a small amount of light-colored urine that has been drained. EXTREMITIES: Bilateral lower extremities are tender to palpation and have hyperpigmentation changes. There is trace pitting edema bilaterally. 2+ radial pulses bilaterally. NEUROLOGICAL: No gross focal neurologic deficits are appreciated. Patient does respond somewhat slowly at times to questions and commands during exam, but said responses are appropriate. Nondysarthric speech. PSYCHOLOGICAL: Somewhat apathetic and withdrawn mood at times. Affect appears appropriate. LABORATORY DATA, IMAGING STUDIES, MICROBIOLOGY: Please see below. 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 Patient was found to have acute kidney injury on CKD 3, likely UTI, and right lower extremity DVT #Acute kidney injury superimposed on chronic kidney disease stage III complicated by bilateral obstructive uropathy and recently diagnosed bladder cancer -This is likely prerenal in nature, secondary to extensive dehydration from de creased poor oral intake over the past month -Serum creatinine 5.9 on repeat this morning (initial 6.1); patient known to nephrology service as outpatient, and recent baseline creatinine reported to be high 1s-2 -IV fluids in the form of normal saline 75 mL's per hour was started upon admission. The nephrology service switched patient to half-normal saline with 75 mEq of sodium bicarb to run at 50 cc an hour in the setting of metabolic acidosis -Both nephrology and urology services have been consulted; hospitalist service greatly appreciates their continued involvement and insights -Interventional radiology service also consulted today in the setting of right- sided mild hydronephrosis for possible nephrostomy tube placement; hospitalist service also appreciates efforts and insights of IR #Mild right-sided hydronephrosis -CT abdomen pelvis ordered by urology service this morning showing mild right hydronephrosis. -Patient is status post right ureteral stent placement on September 15; per urology, patient has failed the stent and likely replacing the stent would only result in another failure -Per nephrology, patient has very little in the way of left kidney function, therefore impetus is on optimizing the right side with likely right nephrostomy tube placement today by IR -ASA 81 #Right lower extremity deep vein thrombosis -Heparin drip started upon admission -Drip protocol PTT measurements -Morphine as needed for pain control #Metabolic acidosis and mild hyperkalemia -Likely manifestation of significant dehydration and resulting -Patient switched to half-normal saline with 75 mEq of sodium bicarb IV fluid hydration #Urinary tract infection in setting of extensive genitourinary complications -Urinalysis on admission: 3+ leuk esterase, 3+ urine bacteria -Urine culture is pending -Ceftriaxone was initiated upon admission -Initial WBC 10.3 with left shift; 10.5 on repeat #Recently diagnosed bladder cancer with muscular invasion -Patient currently follows at [email or web address] in [place] -He recently underwent a PET/CT -We will likely request records from [place] to understand the extent of his malignant disease -Morphine as needed for pain control #Normocytic normochromic anemia -Potentially could be a manifestation of anemia of chronic disease related to extensive neoplastic history -This is supported by iron studies revealing significantly elevated ferritin, decreased TIBC, and decreased serum iron -Oral iron supplementation continued upon admission -We will continue to follow on repeat blood counts #Decreased creatinine kinase -Total CK 32 -This is likely secondary to decrease muscle mass and subsequent breakdown from neoplastic process #Hyperuricemia -Uric acid 10.7 this morning -Plan per nephrology is to begin patient on pharmacotherapy once kidney function improves #Nutrition -Per the patient's , he has not eaten anything solid over the past month -Currently patient is n.p.o. in preparation for possible placement of right nephrostomy tube -Speech therapy bedside swallow eval ordered to assess for dietary modifications once n.p.o. status lifted #History of esophageal cancer s/p chemotherapy and radiation -Bedside speech therapy swallow eval ordered in the setting of recent poor oral intake #BPH -Home tamsulosin and finasteride continued #Hypothyroidism Home levothyroxine continued #Dyslipidemia -Home simvastatin continued #GERD -Home pantoprazole continued #DVT prophylaxis: On heparin drip in setting of right lower extremity DVT Code status: DNR/DNI Disposition: Transferred to PCU status today with plan for right nephrostomy tube placement; at least 2 midnight stay; overall, pt has [id number] prognosis. VS, I&O, 24H, [facility] Vital Signs/I&O Vital Signs Date Time Temp Pulse Resp B/P (MAP) Pulse Ox O2 Delivery O2 Flow Rate FiO2 11/02/20 17:40 97.7 112 18 140/99 99 Room Air 2.0 I&O- Last 24 Hours up to 6 AM 11/02/20 06:00 Intake Total 50 ml Output Total 650 ml Balance -600 ml Laboratory Data 24H LABS Laboratory Tests 2 11/01/20 19:37: Immature Granulocyte % (Auto) 3.2H, Neutrophils (%) (Auto) 80.0H, Lymphocytes (%) (Auto) 5.2L, Monocytes (%) (Auto) 11.2H, Eosinophils (%) (Auto) 0.2, Basophils (%) (Auto) 0.2, Neutrophils # (Auto) 8.2, Lymphocytes # (Auto) 0.5L, Monocytes # (Auto) 1.2H, Eosinophils # (Auto) 0.0, Basophils # (Auto) 0.0, Nucleated Red Blood Cells % (auto) 0.0, Total Bilirubin 0.6, Direct Bilirubin 0.3H, Aspartate Amino Transf (AST/SGOT) 43H, Alanine Aminotransferase (ALT/SGPT) 32, Alkaline Phosphatase 163H, Total Protein 6.9, Albumin 2.8L, Albumin/Globulin Ratio 0.7, Lipase 840H 11/01/20 19:43: POC Glucose (Misc Panel) 111H, POC Sodium (Misc Panel) 138, POC Potassium (Misc Panel) 5.2H, POC Chloride (Misc Panel) 102, POC Total CO2 (Misc Panel) 19.0L, POC Blood Urea Nitrogen (Misc Panel 139H, POC Ionized Calcium (Misc Panel) 4.8, POC Creatinine (Misc Panel) 6.7H, POC Hematocrit (Misc Panel) 37.0L 11/01/20 19:50: Anion Gap 10, Glomerular Filtration Rate 9.3L, Calcium Level 9.1 11/01/20 20:15: Urine Color YELLOW, Urine Appearance TURBIDH, Urine pH 5.0, Urine Specific [place] 1.010, Urine Protein 2+H, Urine Glucose (Auto)(UA) NEGATIVE, Urine Ketones (Auto) NEGATIVE, Urine Blood 2+H, Urine Nitrite NEGATIVE, Urine Bilirubin NEGATIVE, Urine Urobilinogen 0.2, Urine Leukocyte Esterase (Auto) 3+H, Urine WBC (Auto) TNTCH, Urine RBC (Auto) 32H, Urine Hyaline Casts (Auto) 0, Urine Bacteria (Auto) 3+H, Urine Squamous Epithelial Cells 1, Urine Sperm (Auto) , Coronavirus (COVID-19)(PCR) NEGATIVE, Influenza Type A (RT-PCR) NEGATIVE, Influenza Type B (RT-PCR) NEGATIVE, Respiratory Syncytial Virus (PCR) NEGATIVE 11/01/20 23:19: Prothrombin Time 16.3H, Prothromb Time International Ratio 1.28, Activated Partial Thromboplast Time 30.3 11/02/20 06:47: Prothrombin Time 16.5H, Prothromb Time International Ratio 1.30, Activated Partial Thromboplast Time 41.0H, Nucleated Red Blood Cells % (auto) 0.0, Anion Gap 13, Glomerular Filtration Rate 9.7L, Uric Acid 10.7H, Calcium Level 8.6L, Phosphorus Level 4.5, Magnesium Level 2.6H, Iron Level 27L, Total Iron Binding Capacity 165L, Transferrin % Saturation 16.4L, Ferritin 1147H, Total Bilirubin 0.5, Aspartate Amino Transf (AST/SGOT) 44H, Alanine Aminotransferase (ALT/SGPT) 31, Alkaline Phosphatase 150H, Total Protein 6.6, Total Protein (PEP) 6.6, Albumin 2.5L, Albumin/Globulin Ratio 0.6, Lipase 908H, Vitamin B12 Level 405, 25-Hydroxy Vitamin D Total 9.4L, Folate 3.6L, Parathyroid Hormone (Intact) 178.3H 11/02/20 15:30: Total Creatine Kinase 32L, Creatine Kinase MB < 1.0, Creatine Kinase MB Relative Index 3.12, Troponin I < 0.02 11/02/20 18:32: Activated Partial Thromboplast Time 30.9 CBC/BMP Laboratory Tests 11/01/20 19:37 11/01/20 19:50 11/02/20 06:47 Microbiology Microbiology 11/02/20 Urine Culture, Received Pending 11/02/20 Gram Stain - Final, Complete 11/01/20 Urine Culture, Received Pending GME ATTESTATION GME ATTESTATION My faculty preceptor for this patient encounter was physically present during the encounter and was fully available. All aspects of the patient interview, examination, medical decision making process, and medical care plan development were reviewed and approved by the faculty preceptor. The faculty preceptor is aware and concurs with the plan as stated in the body of this note and will attest to such by his/her cosignature. ATTENDING NOTE I, Terry Agosto, have independently examined this patient and performed my own physical exam, as well as reviewed the documentation and edited where necessary. I have discussed in detail with the resident / student the findings and plan of treatment as documented by the resident / student and edited their note. I agree with their findings and treatment plan and have edited their documentation. I will continue to follow the patient during this hospital stay. FRANKLIN ACUNA D.O. Nov 02, 2020 19:27 TERRY AGOSTO MD Nov 03, 2020 08:26
[2020-11-02 21:55] LABS: CK-MB VALUE MASS < 1.0 NG/ML (<3.6); CPK CREATINE PHOSPHOKINASE 24 U/L (39-308); MB/CK RELATIVE INDEX 4.17 (< OR =4); TROPONIN I < 0.02 NG/ML (< 0.10)
[2020-11-02] MEDS: cefTRIAXone SOD 1 GM in D5W MINI-BAG PLUS 50 ML IV SCH (21:57)
[2020-11-03] VITALS: BP 133/71
[2020-11-03] MEDS: MORPHINE 2 MG/ML 1ML VIAL (J2270) IV PRN ×4 (00:14→21:48)
[2020-11-03 04:00] VITALS: BP 144/75
[2020-11-03 04:57] LABS: CK-MB VALUE MASS < 1.0 NG/ML (<3.6); CPK CREATINE PHOSPHOKINASE 16 U/L (39-308); MB/CK RELATIVE INDEX 6.25 (< OR =4); TROPONIN I < 0.02 NG/ML (< 0.10)
[2020-11-03 08:00] VITALS: BP 123/68
[2020-11-03 08:06] LABS: BASO % 0.1 % (0.0-1.0); EOS % 0.4 % (0.0-3.0); HEMATOCRIT 28.6 % (42.0-52.0); LYMPH # 0.5 10^3/uL (1.5-5.0); LYMPH % 4.9 % (24.0-44.0); MEAN CORPUSCULAR HEMOGLOBIN 30.5 pg (27.0-33.0); MEAN CORPUSCULAR HGB CONC 32.5 g/dl (32.0-36.5); MEAN CORPUSCULAR VOLUME 93.8 fl (80.0-96.0); MONO # 0.7 10^3/uL (0.0-0.8); MONO % 7.5 % (2.0-8.0); NEUTROPHILS # 8.3 10^3/uL (1.5-8.5); NEUTROPHILS % 85.9 % (36.0-66.0); PLATELET COUNT, AUTOMATED 157 10^3/uL (150-450); RED BLOOD COUNT 3.05 10^6/uL (4.30-6.10); WHITE BLOOD COUNT 9.7 10^3/uL (4.0-10.0)
[2020-11-03 08:12] LABS: HEMOGLOBIN 9.3 g/dl (13.5-17.5)
[2020-11-03 08:25] LABS: CALCIUM LEVEL 8.7 MG/DL (8.8-10.2); CREATININE FOR GFR 5.89 MG/DL (0.70-1.30); GLOMERULAR FILTRATION RATE 9.9 (>35); MAGNESIUM LEVEL 2.7 MG/DL (1.8-2.4); POTASSIUM SERUM 4.8 MEQ/L (3.5-5.1)
[2020-11-03] MEDS: POLYVINYL ALCOHOL OPHTH SOLN 15 ML(LIQUITEARS) OU SCH ×2 (09:07→20:55)
[2020-11-03] MEDS ORDERED: HEPARIN SOD (PORCINE) 5000UNITS/ML 1ML VIAL/SYRINGE IV PRN (10:25)
[2020-11-03] MEDS: HEPARIN DRIP 25,000 UNITS in IV 1 EA IV SCH ×2 (10:49→17:52)
--- NOTE | 2020-11-03 11:08 | IPNPDOC ---
Date Seen The patient was seen on 11/03/20. Progress Note SUBJECTIVE: Rishabh was seen and examined this morning by the hospitalist service while lying in bed. He had quite an eventful day yesterday (11/02). He went for placement of a right nephrostomy tube with interventional radiology yesterday afternoon. When he returned, he became tachycardic and EKG revealed atrial flutter. Troponins were ordered and were negative. The patient was overall asymptomatic denying any chest pain, chest pressure, or palpitations. He was saturating well on room air. Since his rate remained relatively controlled (mostly staying under 115 bpm), no medications were added to his pre-existing regimen. In terms of overnight events, due to "soy hematuria," the evening hospitalist service held patient's heparin drip pending repeat morning labs. On review this morning, patient reports some pain in his right lower abdominal quadrant extending to the right flank but not all the way to the site of where the nephrostomy tube was placed. He describes it as a moderate pain. He denies any current or overnight fever, chills, night sweats, shortness of breath, chest pain, palpitations, nausea, or vomiting. OBJECTIVE PHYSICAL EXAMINATION: VITAL SIGNS: Please see below. GENERAL: Pleasant but ill-appearing elderly male lying in bed with his arms crossed. He appears quite weak and in some generalized discomfort. HEENT: Normocephalic. No acute head trauma. Noninjected, anicteric sclera. Some mild myosis, otherwise PERRLA. Oral cavity: Mucous membranes remain moderately dry. Lips are chapped. Missing some teeth. No pharyngeal erythema or exudate appreciated. Neck: Supple, trachea midline. No lymphadenopathy appreciated. Mild JVD, decreased from yesterday's exam. Chest: There is a port in place in the right upper chest. Also of the medial end of the right clavicle is moderately larger compared to the left. There remain dark pigmented macules and papules over inferior neck and chest. No chest wall tenderness. CARDIOVASCULAR: Tachycardic rate, irregular rhythm. On telemetry. 2+ radial pulses bilaterally. Cap refill 2-3 seconds. RESPIRATORY: Due to patient's significant overall weakness, auscultation occurred anteriorly and laterally only. Diminished breath sounds bilaterally with decreased tidal volume. No significant adventitious breath sounds were appreciated. ABDOMINAL: There is a prominent diastases rectus present. Nondistended. Normoactive to hyperactive bowel sounds present with intermittent high-pitched sounds. No hepatosplenomegaly appreciated. BACK: There are bilateral nephrostomy tubes in place. In the right nephrostomy tube bag there is some blood-tinged urine approximately 400 mL. In the left nephrostomy tube bag there is approximately 100 mL of light yellow-colored urine. Skin surrounding insertion sites of both nephrostomy tubes not erythematous, nonswollen, nonindurated. Genitourinary: There remains a Ibrahim catheter in place with approximately 100 mL of light yellow-colored urine. EXTREMITIES: Positive calf tenderness of the right lower extremity. There remains bilateral distal lower extremity hyperpigmentation changes, slightly greater on the right than the left. Some mild swelling of bilateral lower extremities, right greater than left, but no pitting edema appreciated. There are arthritic changes visible on bilateral hands. NEUROLOGICAL: No gross focal neurologic deficits appreciated. Responds appropriately to all questions and commands and is a little bit quicker in his responses today versus yesterday, but still slightly delayed. Nondysarthric speech. PSYCHOLOGICAL: Mood and affect appear appropriate. LABORATORY DATA, IMAGING STUDIES, MICROBIOLOGY: Please see below. 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 Patient was found to have acute kidney injury on CKD 3, likely UTI, and right lower extremity DVT #Acute kidney injury superimposed on chronic kidney disease stage III complicated by bilateral obstructive uropathy and recently diagnosed bladder cancer -Etiology is likely both prerenal and postrenal in nature, secondary to extensive dehydration from decreased poor oral intake over the past month as well as obstructive uropathy due to multiple factors -A right nephrostomy tube was placed on afternoon of 11/02 by interventional radiology. -The patient has had 250 cc out through midnight, and another 875 cc since midnight. Left nephrostomy tube draining 125 cc pre-midnight, and 150 cc post midnight. -Overall, patient has been net negative since admission with 1300 total cc of urine out premidnight, and 150 cc out post midnight. -Mild improvement in serum creatinine this morning to 5.89 -patient is known to nephrology service as outpatient (follows with Dr. Hermes Monique) -recent baseline creatinine reported to be high 1s-2 -Pt continues on half-normal saline with 75 mEq of sodium bicarb to run at 50 cc an hour in the setting of metabolic acidosis (bicarb very slightly improved today to 20, from 19 yesterday -Both nephrology and urology services have been consulted; hospitalist service greatly appreciates their continued involvement and insights -hospitalist service also appreciates efforts of IR yesterday and placing right nephrostomy tube #Mild right-sided hydronephrosis -CT abdomen pelvis ordered by urology service on 11/02 showed mild right hydronephrosis. -Right nephrostomy tube placed on afternoon of 11/02; please see output through nephrostomy tube detailed above -Patient is status post right ureteral stent placement on September 15; per urology, patient has failed the stent and likely replacing the stent would only result in another failure -Per nephrology, patient has very little in the way of left kidney function, therefore impetus is on optimizing right kidney hence nephrostomy tube placement -ASA 81 #Right lower extremity deep vein thrombosis -Heparin drip started upon admission -Due to "soy hematuria," overnight hospitalist service held heparin drip pending this morning's labs. -Morning PTT (0630) was within normal limits (29.7) and the right nephrostomy tube had blood-tinged output but soy hematuria was not appreciated during day evaluation. As such, heparin drip was ordered again to resume at the rate patient had left off on. -Drip protocol PTT measurements -c/w morphine as needed for pain control #Metabolic acidosis, slightly improved -Likely manifestation of significant dehydration and resulting acidosis in the setting of ELAINE -Continuing with half-normal saline with 75 mEq of sodium bicarb IV fluid hydration #Hyperkalemia, resolved -Repeat potassium 4.8 this morning. It had been initially 5.2 yesterday. #Urinary tract infection in setting of extensive genitourinary complications -Urinalysis on admission: 3+ leuk esterase, 3+ urine bacteria -Urine culture grew Serratia which was nearly pansensitive sensitive (resistant only to Ancef and Macrobid) -Ceftriaxone was initiated upon admission and will continue with ceftriaxone in the setting of his complicated genitourinary issues and current poor p.o. status; today chao day #2 of ceftriaxone dosing. -WBC normalized today to 9.7 (was 10.5 yesterday). #Leukocytosis, resolved -WBC this morning 9.7. Initial white count was 10.5 yesterday. There continues to be a left shift. -Blood culture ordered from patient's port today. -Kidney urine culture from yesterday's nephrostomy tube placement is pending #Recently diagnosed bladder cancer with muscular invasion -Patient currently follows at [facility] in [place] -He recently underwent a PET/CT -We will likely request records from [place] to understand the extent of his malignant disease -Morphine as needed for pain control #Normocytic normochromic anemia, worsened -Hemoglobin dropped to 9.3 today from 12 yesterday. -In the event blood products are needed during this admission, type and screen ordered and consent for blood products signed. -Acute component potentially result of blood loss through new nephrostomy tube and as result of associated trauma with yesterday's placement. -Also could be chronic component as result of anemia of chronic disease related to extensive neoplastic history. This is supported by iron studies revealing significantly elevated ferritin, decreased TIBC, and decreased serum iron -Oral iron supplementation continued upon admission -We will continue to follow on repeat blood counts -Patient is on a heparin drip in the setting of right lower extremity DVT #Decreased creatinine kinase -Total CK continues to decrease and is 16 this morning (24 yesterday evening) -This is likely secondary to decrease muscle mass and subsequent breakdown from neoplastic process #Hyperuricemia on admission -Uric acid 10.7 on 11/02 -Plan per nephrology is to begin patient on pharmacotherapy once kidney function improves #Nutrition -Per the patient's , he has not eaten anything solid over the past month -Patient remains n.p.o. after failing a bedside speech therapy swallow evaluation yesterday. -Per nursing, patient struggled with sips of water this morning so n.p.o. status will continue for now. -An esophagram per speech therapy will likely be performed on Mon, 11/05 #History of esophageal cancer s/p chemotherapy and radiation -Please see above section on nutrition #BPH -Home tamsulosin and finasteride continued #Hypothyroidism Home levothyroxine continued #Dyslipidemia -Home simvastatin continued #GERD -Home pantoprazole continued #DVT prophylaxis: On heparin drip in setting of right lower extremity DVT Code status: DNR/DNI Disposition: Patient was transferred to PCU yesterday in the setting of right nephrostomy tube placement; remains on telemetry in the setting of a flutter with relative rate control and heparin drip for DVT. Overall, pt has poor prognosis long-term. VS, I&O, 24H, Fishbone Vital Signs/I&O Vital Signs Date Time Temp Pulse Resp B/P (MAP) Pulse Ox O2 Delivery O2 Flow Rate FiO2 11/03/20 08:00 98.0 103 17 123/68 (86) 98 Room Air 11/02/20 17:40 2.0 I&O- Last 24 Hours up to 6 AM 11/03/20 06:00 Intake Total 264 ml Output Total 2200 ml Balance -1936 ml Laboratory Data 24H LABS Laboratory Tests 2 11/02/20 15:30: Total Creatine Kinase 32L, Creatine Kinase MB < 1.0, Creatine Kinase MB Relative Index 3.12, Troponin I < 0.02 11/02/20 18:32: Activated Partial Thromboplast Time 30.9 11/02/20 21:18: Total Creatine Kinase 24L, Creatine Kinase MB < 1.0, Creatine Kinase MB Relative Index 4.17H, Troponin I < 0.02 11/02/20 23:51: Activated Partial Thromboplast Time 76.3H 11/03/20 04:23: Total Creatine Kinase 16L, Creatine Kinase MB < 1.0, Creatine Kinase MB Relative Index 6.25H, Troponin I < 0.02 11/03/20 06:28: Activated Partial Thromboplast Time 29.7 11/03/20 07:26: Immature Granulocyte % (Auto) 1.2, Neutrophils (%) (Auto) 85.9H, Lymphocytes (%) (Auto) 4.9L, Monocytes (%) (Auto) 7.5, Eosinophils (%) (Auto) 0.4, Basophils (%) (Auto) 0.1, Neutrophils # (Auto) 8.3, Lymphocytes # (Auto) 0.5L, Monocytes # (Auto) 0.7, Eosinophils # (Auto) 0.0, Basophils # (Auto) 0.0, Nucleated Red Blood Cells % (auto) 0.0, Anion Gap 12, Glomerular Filtration Rate 9.9L, Calcium Level 8.7L, Magnesium Level 2.7H CBC/BMP Laboratory Tests 11/03/20 07:26 Microbiology Microbiology 11/02/20 Urine Culture, Received Pending 11/02/20 Gram Stain - Final, Complete 11/01/20 Urine Culture - Final, Complete Serratia Marcescens GME ATTESTATION GME ATTESTATION My faculty preceptor for this patient encounter was physically present during the encounter and was fully available. All aspects of the patient interview, examination, medical decision making process, and medical care plan development were reviewed and approved by the faculty preceptor. The faculty preceptor is aware and concurs with the plan as stated in the body of this note and will attest to such by his/her cosignature. ATTENDING NOTE I, Terry Dumont, have independently examined this patient and performed my own physical exam, as well as reviewed the documentation and edited where necessary. I have discussed in detail with the resident / student the findings and plan of treatment as documented by the resident / student and edited their note. I agree with their findings and treatment plan and have edited their documentation. I will continue to follow the patient during this hospital stay. FRANKLIN ACUNA D.O. Nov 03, 2020 11:08 TERRY DUMONT MD Nov 03, 2020 11:41
[2020-11-03 12:00] VITALS: BP 115/56
--- NOTE | 2020-11-03 12:27 | IPNPDOC ---
Subjective Review oF Systems Chief Complaint The patient is a 80-year-old male admitted with a reason for visit of Acute On Chronic Renal Failure. Events since Last Encounter Had right nephrostomy tube placed by IR. Right neph tube output reportedly fairly bloody yesterday when he was on heparin gtt for DVT and they stopped the gtt with improvement but recently restarted it. Pt reports he feels alright. Objective Vital Signs/I&O Vital Signs Date Time Temp Pulse Resp B/P (MAP) Pulse Ox O2 Delivery O2 Flow Rate FiO2 11/03/20 08:00 98.0 103 17 123/68 (86) 98 Room Air 11/02/20 17:40 2.0 I&O- Last 24 Hours up to 6 AM 11/03/20 06:00 Intake Total 264 ml Output Total 2200 ml Balance -1936 ml Laboratory Data Labs 24H Laboratory Tests 2 11/02/20 15:30: Total Creatine Kinase 32L, Creatine Kinase MB < 1.0, Creatine Kinase MB Relative Index 3.12, Troponin I < 0.02 11/02/20 18:32: Activated Partial Thromboplast Time 30.9 11/02/20 21:18: Total Creatine Kinase 24L, Creatine Kinase MB < 1.0, Creatine Kinase MB Relative Index 4.17H, Troponin I < 0.02 11/02/20 23:51: Activated Partial Thromboplast Time 76.3H 11/03/20 04:23: Total Creatine Kinase 16L, Creatine Kinase MB < 1.0, Creatine Kinase MB Relative Index 6.25H, Troponin I < 0.02 11/03/20 06:28: Activated Partial Thromboplast Time 29.7 11/03/20 07:26: Immature Granulocyte % (Auto) 1.2, Neutrophils (%) (Auto) 85.9H, Lymphocytes (%) (Auto) 4.9L, Monocytes (%) (Auto) 7.5, Eosinophils (%) (Auto) 0.4, Basophils (%) (Auto) 0.1, Neutrophils # (Auto) 8.3, Lymphocytes # (Auto) 0.5L, Monocytes # (Auto) 0.7, Eosinophils # (Auto) 0.0, Basophils # (Auto) 0.0, Nucleated Red Blood Cells % (auto) 0.0, Anion Gap 12, Glomerular Filtration Rate 9.9L, Calcium Level 8.7L, Magnesium Level 2.7H CBC/BMP Laboratory Tests 11/03/20 07:26 Microbiology Microbiology 11/03/20 Blood Culture, Received Pending 11/02/20 Urine Culture, Received Pending 11/02/20 Gram Stain - Final, Complete 11/01/20 Urine Culture - Final, Complete Serratia Marcescens Assessment/Plan Date Seen The patient was seen on 11/03/20. Plan/VTE VTE Prophylaxis Ordered?: Yes VTE Exclusion Mechanical Proph: N/A:VTE Prophy Ordered VTE Exclusion Pharmacological: N/A:VTE Prophy Ordered Plan -Urine output from right nephrostomy tube now just light pink and heparin gtt has been restarted. -Some very slight improvement in Cr level since neph tube placed. Will likely continue to improve now with right renal drainage established. -Continue bilateral neph tubes. -Contact urology if significant increase in hematuria or any other new urologic issues. -Urology plan is for discharge with bilateral nephrostomy tubes in place and f/u with urology as outpatient. VIRGIL QUINTANILLA MD Nov 03, 2020 12:27
[2020-11-03 12:28] LABS: HEMATOCRIT 32.2 % (42.0-52.0); HEMOGLOBIN 10.4 g/dl (13.5-17.5)
--- NOTE | 2020-11-03 13:51 | IPN ---
NEPHROLOGY PROGRESS NOTE DATE: 11/03/2020 SUBJECTIVE: Mr. Alexis is seen this morning at his bedside. He was admitted with acute renal failure superimposed on chronic kidney disease. He has a known history of bilateral hydronephrosis and a recent diagnosis of bladder cancer. He already had a left nephrostomy and yesterday underwent a right sided nephrostomy as ureteral stent has not been draining well. The patient has a prior history of esophageal cancer, diagnosed about 5 years ago. He is not able to swallow and is currently n.p.o. He is receiving IV fluid at 50 mL per hour. OBJECTIVE: PHYSICAL EXAMINATION: VITAL SIGNS: Temperature 98 degrees Fahrenheit, heart rate 103 per minute and respiratory rate 15 per minute. Blood pressure is 123/68 mm of mercury and oxygen saturation is 98% on room air. HEENT: His head is atraumatic. Oral mucosa is dry and his lips are crusted. NECK: Supple and without JVD or thyroid enlargement. HEART: Tachycardic. LUNGS: Clear to auscultation. ABDOMEN: Soft and bowel sounds are present. Right sided nephrostomy is draining slightly pinkish urine and left nephrostomy is draining clear urine. EXTREMITIES: Without any cyanosis or clubbing. NEUROLOGICAL: He is awake, alert and without any focal deficits. LABORATORY STUDIES: Today's lab show sodium of 143, potassium 4.8, CO2 20, BUN 128 and creatinine 5.89, glucose 95 and calcium 8.7. WBC count 9.7, hemoglobin 9.3 and hematocrit 28.6. A repeat hemoglobin is 10.4 and hematocrit 32.2. PROBLEMS: 1. Acute renal failure superimposed on chronic kidney disease obstructive uropathy and now the patient has bilateral nephrostomy tubes. He seems to have more urine output from the right nephrostomy though there is minimal blood in the urine. I would recommend to continue with IV fluids and increase the IV fluids to 100 mL per hour as the patient is likely to have post obstructive diuresis. He also seems clinically dehydrated. 2. Metabolic acidosis he has mild metabolic acidosis which is likely to improve as his kidney function improves. He was on a sodium bicarbonate drip and I am going to continue with the IV fluids for now and recheck is renal profile tomorrow. 3. Deep vein thrombosis - The patient has been recently diagnosed with a DVT in his right leg. I would recommend to continue with IV Heparin drip at this point even though he has minimal blood in the urine. 4. Bladder cancer - The patient has been recently diagnosed with bladder cancer and I have discussed with the patient. He understands that he is not a surgical candidate and at this point probably palliative care would be appropriate. 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 5. Anemia his anemia is mild and stable and at this point we will continue to watch it.
[2020-11-03] MEDS ORDERED: SODIUM BICARBONATE 75 MEQ in NS 0.45% 1,000 ML IV SCH (15:00)
[2020-11-03 16:00] VITALS: BP 110/74
[2020-11-03 17:13] LABS: INR 1.32; PROTHROMBIN TIME 16.7 SECONDS (12.5-14.3)
[2020-11-03 17:14] LABS: PARTIAL THROMBOPLASTIN TIME 60.8 SECONDS (24.2-38.5)
[2020-11-03 18:55] LABS: HEMATOCRIT 35.8 % (42.0-52.0); HEMOGLOBIN 11.8 g/dl (13.5-17.5)
[2020-11-03 20:00] VITALS: BP 110/77
[2020-11-03] MEDS: cefTRIAXone SOD 1 GM in D5W MINI-BAG PLUS 50 ML IV SCH (20:54)
[2020-11-04] VITALS (7 sets, daily range): BP systolic 117–152; BP diastolic 63–77
[2020-11-04 00:16] LABS: HEMATOCRIT 35.2 % (42.0-52.0); HEMOGLOBIN 11.4 g/dl (13.5-17.5)
[2020-11-04 00:26] LABS: INR 1.28; PROTHROMBIN TIME 16.3 SECONDS (12.5-14.3)
[2020-11-04 00:28] LABS: PARTIAL THROMBOPLASTIN TIME 86.4 SECONDS (24.2-38.5)
[2020-11-04] MEDS: MORPHINE 2 MG/ML 1ML VIAL (J2270) IV PRN ×5 (02:35→22:13)
[2020-11-04 06:39] LABS: BASO % 0.2 % (0.0-1.0); EOS # 0.1 10^3/uL (0.0-0.5); EOS % 0.6 % (0.0-3.0); HEMATOCRIT 35.3 % (42.0-52.0); HEMOGLOBIN 11.4 g/dl (13.5-17.5); LYMPH # 0.6 10^3/uL (1.5-5.0); LYMPH % 4.3 % (24.0-44.0); MEAN CORPUSCULAR HEMOGLOBIN 30.9 pg (27.0-33.0); MEAN CORPUSCULAR HGB CONC 32.3 g/dl (32.0-36.5); MEAN CORPUSCULAR VOLUME 95.7 fl (80.0-96.0); MONO # 0.8 10^3/uL (0.0-0.8); MONO % 6.1 % (2.0-8.0); NEUTROPHILS # 11.5 10^3/uL (1.5-8.5); NEUTROPHILS % 87.2 % (36.0-66.0); PLATELET COUNT, AUTOMATED 223 10^3/uL (150-450); RED BLOOD COUNT 3.69 10^6/uL (4.30-6.10); WHITE BLOOD COUNT 13.2 10^3/uL (4.0-10.0)
[2020-11-04 06:48] LABS: INR 1.3; PROTHROMBIN TIME 16.5 SECONDS (12.5-14.3)
[2020-11-04 06:51] LABS: PARTIAL THROMBOPLASTIN TIME 88.3 SECONDS (24.2-38.5)
[2020-11-04 07:13] LABS: CALCIUM LEVEL 8.7 MG/DL (8.8-10.2); CREATININE FOR GFR 5.86 MG/DL (0.70-1.30); GLOMERULAR FILTRATION RATE 9.9 (>35); MAGNESIUM LEVEL 2.8 MG/DL (1.8-2.4); POTASSIUM SERUM 4.7 MEQ/L (3.5-5.1)
[2020-11-04] MEDS: LEVOTHYROXINE 75MCG TABLET (0.075MG) PO SCH (09:00)
[2020-11-04] MEDS: ASPIRIN 81MG ENTERIC TABLET PO SCH (09:00)
[2020-11-04] MEDS: PANTOPRAZOLE 40MG TAB (PROTONIX) PO SCH (09:00)
[2020-11-04] MEDS: FINASTERIDE 5 MG TAB PO SCH (09:00)
[2020-11-04] MEDS: POLYVINYL ALCOHOL OPHTH SOLN 15 ML(LIQUITEARS) OU SCH ×2 (09:22→22:14)
[2020-11-04] MEDS: HEPARIN DRIP 25,000 UNITS in IV 1 EA IV SCH (09:24)
[2020-11-04] MEDS: NS 0.45% 1,000 ML IV SCH ×3 (09:40→22:15)
[2020-11-04] MEDS: SIMVASTATIN 20 MG TAB PO SCH ×2 (11:49→21:00)
[2020-11-04] MEDS: DOCUSATE SODIUM 100MG CAPSULE PO SCH ×3 (11:49→21:00)
[2020-11-04] MEDS: TAMSULOSIN 0.4 MG CAP PO SCH ×2 (11:49→21:00)
[2020-11-04] MEDS: FERROUS SULFATE 325MG TAB PO SCH ×2 (11:50→21:00)
--- NOTE | 2020-11-04 12:00 | IPNPDOC ---
Text Note Date of Service The patient was seen on 11/04/20. NOTE Subjective: Patient-is an 80-year-old male with a PMHx of Bilateral obstructive uropathy (s/p L nephrostomy tube, R ureteral stent; 22/ Recently diagnosed bladder CA w/ muscular invasion), CKD3, Esophageal CA (s/p Chemotherapy and radiation), HTN, DLP, Hypothyroidism who presented to the ER on 11/01 from Urology's office for significantly elevated Cr. Patient was admitted to the hospitalist service for further evaluation and treatment. Nephrology and urology were called on consultation. Patient was also incidentally found to have a right lower extremity DVT. On 11/02, patient had a right-sided nephrostomy tube placed for worsening hydronephrosis on the right side. Patient is on a heparin drip that was temporarily held for hematuria from the right-sided nephrostomy tube. This has resolved and heparin drip was restarted without issue. Patient was seen and examined at the bedside. Currently patient reports that they are thirsty. They deny any chest pain, shortness breath or palpitations. Reports some right-sided flank pain. Patient has had good output from his nephrostomy tubes Ibrahim catheter that is present, does not reveal any signific ant output. Objective: Vitals (See below) General: Lying in bed, appears comfortable, AAOx3 HEENT: NC, AT CVS: +S1S2 Lungs: Fair air entry b/l, -w/r/r Abdomen: Soft, ND, NT Extremities: Trace LE edema, - Calf tenderness Imaging: Renal US 11/01: Right moderate to severe hydronephrosis. Vascular US 11/01: Positive for deep venous thrombosis in the right lower extremity. Occlusive thrombus in the right popliteal vein to the mid peroneal vein. Abdomen / pelvis CT 11/01: 1. The examination is limited without intravenous or oral bowel preparatory contrast. 2. Bilateral renal findings as described above. I suspect the increased density seen on the left represents changes from previous nephrostomy tube placement which was done 10/22/2020. Without intravenous contrast administration I cannot accurately assess for active bleeding. A resolving hematoma or even urinoma cannot be ruled out. 3. Findings in the urinary bladder as described above. This may need further evaluation. 4. Other findings as described above. Assessment and plan: ELAINE on CKD3 - likely 2/2 post-renal etiology 2/2 obstruction 2/2 Recently diagnosed bladder CA - Patient's kidney function has remained relatively stable - Still reports right-sided flank pain - Output from nephrostomy tubes has remained adequate - Imaging noted above - s/p R nephrostomy tube placement on 11/[address] Wall in IR - Fluids have been adjusted by nephrology - Nephrology on consultation; we appreciate their input R sided hydronephrosis - likely 2/2 obstructed R ureteral stent 2/2 Recently diagnosed bladder CA - See above - Urology on consultation; appreciate their input RLE DVT - Imaging noted above - c/w Heparin drip Metabolic acidosis - likely 2/2 ELAINE on CKD - c/w Bicarbonate based fluids - Nephrology on consultation; appreciate their input s/p Hyperkalemia UTI - 2/2 Serratia Marcescens - Leukocytosis has increased today - UA abnormal - Urine culture 11/01: Serratia Marcescens - Blood cultures 11/03: Pending - c/w Ceftriaxone (Day #3) Recently diagnosed bladder cancer with muscular invasion - Recent PET scan reveals evidence of invasion of the cervical os into the space of Retzius and the lower pelvis on the left side anteriorly. Diffuse soft tissue stranding in the tissue of the rectal fossa is suspicious for tomorrow invasion - c/w Morphine for pain control - Patient currently follows at [facility] in [place]; patient has not been given a treatment plan for his bladder cancer by Oncology Normocytic anemia - Patient had developed hematuria from right nephrostomy tube; this has subsequently resolved - Hg has remained stable - Will continue to trend Dysphagia - Patient has had poor oral intake over the last 1 month - Speech therapy has worked with patient and they have recommended strict nothing by mouth status until esophagram was completed - Discussed with patient the need for possible PEG tube placement. However, patient is reluctant to have this given he had this in the past for his esophageal cancer - c/w Strict NPO status Hx of Esophageal cancer - s/p chemotherapy and radiation - Dx 02/2017 BPH - c/w Tamsulosin / Finasteride - Ibrahim catheter is in place; however will likely be discontinued in 24 hours (re: Bilateral nephrostomy tubes present) Hypothyroidism - c/w Levothyroxine DLP - c/w Simvastatin GERD - c/w Protonix DVT prophylaxis - c/w full anticoagulation with Heparin drip Code status: - DNR/DNI Disposition: - Awaiting clinical improvement - Will have discussion with patient about goals of care VS,Hailey, I+O VS, Hailey, I+O Laboratory Tests 11/03/20 12:04 11/03/20 18:02 11/03/20 23:51 11/04/20 06:23 Vital Signs Date Time Temp Pulse Resp B/P (MAP) Pulse Ox O2 Delivery O2 Flow Rate FiO2 11/04/20 09:36 18 Room Air 11/04/20 08:00 97.5 114 144/77 (99) 95 11/02/20 17:40 2.0 I&O- Last 24 Hours up to 6 AM 11/04/20 05:59 Intake Total 1842.5 ml Output Total 2225 ml Balance -382.5 ml IKRK AGOSTO MD Nov 04, 2020 12:00
--- NOTE | 2020-11-04 13:29 | IPN ---
PROGRESS NOTE DATE: 11/04/2020 SUBJECTIVE: Mr. Alexis is seen this morning on his bedside. He is feeling about the same and continues to have a complaint of pain in his right flank area where he had a nephrostomy tube placed on Thursday. There is only minimal amount of blood in the nephrostomy bag on the right side. Left bag is completely clear. PHYSICAL EXAMINATION: VITALS: Temperature 97.5 degrees Fahrenheit, heart rate 114 per minute, respiratory rate 18 per minute, blood pressure 144/77 mmHg, oxygen saturation 95% on room air. INTAKE/OUTPUT: Records from yesterday show a negative fluid balance of 1,257 mL. It is important to note that patient has been n.p.o. HEENT: Head is atraumatic. Oral mucosa is dry. Neck is supple and without JVD or thyroid enlargement. LUNGS: Clear to auscultation. HEART: Sounds are tachycardic and irregular in rhythm. ABDOMEN: Soft and nontender. Bowel sounds normal. EXTREMITIES: Without any cyanosis or clubbing. NEUROLOGIC: He is without a focal deficit. LABORATORY STUDIES: Today's labs show WBC 13.2, hemoglobin 11.4, hematocrit 35.3. Sodium 147, potassium 4.7, chloride 22, BUN 132, creatinine 5.86, glucose 110 and calcium 8.7. PROBLEMS: 1. Bilateral hydronephrosis: Patient now has bilateral nephrostomy tubes in place. Unfortunately he has bladder cancer causing bilateral obstruction. Patient is not a suitable candidate for surgical intervention at this point due to frail condition and advanced age. 2. Acute kidney injury superimposed on chronic kidney disease: Patient has obstructive uropathy and now he has bilateral nephrostomy tubes in place. He has been in negative fluid balance for the last two days. I am going to increase his I.V. fluid with half normal saline to 150 mL per hour. 3. Hypernatremia: Mild hypernatremia is caused by negative fluid balance and nothing by mount. We are switching his I.V. fluid to half normal saline at 150 mL per hour. 4. DVT: Patient is back on Heparin drip. He remain high risk due to his malignancy and bedridden status.
[2020-11-04] MEDS: cefTRIAXone SOD 1 GM in D5W MINI-BAG PLUS 50 ML IV SCH (22:14)
[2020-11-05] VITALS: BP 127/64
[2020-11-05] MEDS: HEPARIN DRIP 25,000 UNITS in IV 1 EA IV SCH ×2 (00:31→20:29)
[2020-11-05 04:00] VITALS: BP 116/68
[2020-11-05] MEDS: NS 0.45% 1,000 ML IV SCH ×4 (04:21→23:48)
[2020-11-05] MEDS: MORPHINE 2 MG/ML 1ML VIAL (J2270) IV PRN ×3 (04:22→16:05)
[2020-11-05 07:39] LABS: BASO # 0.1 10^3/uL (0.0-0.2); BASO % 0.4 % (0.0-1.0); EOS # 0.1 10^3/uL (0.0-0.5); EOS % 1.1 % (0.0-3.0); HEMATOCRIT 36.3 % (42.0-52.0); HEMOGLOBIN 11.3 g/dl (13.5-17.5); LYMPH # 0.5 10^3/uL (1.5-5.0); LYMPH % 3.9 % (24.0-44.0); MEAN CORPUSCULAR HEMOGLOBIN 30.5 pg (27.0-33.0); MEAN CORPUSCULAR HGB CONC 31.1 g/dl (32.0-36.5); MEAN CORPUSCULAR VOLUME 97.8 fl (80.0-96.0); MONO # 0.8 10^3/uL (0.0-0.8); MONO % 6.2 % (2.0-8.0); NEUTROPHILS # 10.8 10^3/uL (1.5-8.5); NEUTROPHILS % 85.9 % (36.0-66.0); PLATELET COUNT, AUTOMATED 235 10^3/uL (150-450); RED BLOOD COUNT 3.71 10^6/uL (4.30-6.10); WHITE BLOOD COUNT 12.5 10^3/uL (4.0-10.0)
[2020-11-05 07:52] LABS: INR 1.29; PROTHROMBIN TIME 16.4 SECONDS (12.5-14.3)
[2020-11-05 07:54] LABS: PARTIAL THROMBOPLASTIN TIME 104.2 SECONDS (24.2-38.5)
[2020-11-05 08:00] VITALS: BP 152/63
[2020-11-05 08:09] LABS: CALCIUM LEVEL 8.7 MG/DL (8.8-10.2); CREATININE FOR GFR 5.32 MG/DL (0.70-1.30); GLOMERULAR FILTRATION RATE 11.1 (>35); MAGNESIUM LEVEL 2.6 MG/DL (1.8-2.4); POTASSIUM SERUM 4.5 MEQ/L (3.5-5.1)
[2020-11-05] MEDS: FINASTERIDE 5 MG TAB PO SCH (09:00)
[2020-11-05] MEDS: DOCUSATE SODIUM 100MG CAPSULE PO SCH ×2 (09:00→21:00)
[2020-11-05] MEDS: LEVOTHYROXINE 75MCG TABLET (0.075MG) PO SCH (09:00)
[2020-11-05] MEDS: PANTOPRAZOLE 40MG TAB (PROTONIX) PO SCH (09:00)
[2020-11-05] MEDS: ASPIRIN 81MG ENTERIC TABLET PO SCH (09:00)
[2020-11-05] MEDS: POLYVINYL ALCOHOL OPHTH SOLN 15 ML(LIQUITEARS) OU SCH ×2 (09:20→21:06)
--- NOTE | 2020-11-05 09:55 | IPNPDOC ---
Text Note Date of Service The patient was seen on 11/05/20. NOTE Subjective: Patient-is an 80-year-old male with a PMHx of Bilateral obstructive uropathy (s/p L nephrostomy tube, R ureteral stent; 22/ Recently diagnosed bladder CA w/ muscular invasion), CKD3, Esophageal CA (s/p Chemotherapy and radiation), HTN, DLP, Hypothyroidism who presented to the ER on 11/01 from Urology's office for significantly elevated Cr. Patient was admitted to the hospitalist service for further evaluation and treatment. Nephrology and urology were called on consultation. Patient was also incidentally found to have a right lower extremity DVT. On 11/02, patient had a right-sided nephrostomy tube placed for worsening hydronephrosis on the right side. Patient is on a heparin drip that was temporarily held for hematuria from the right-sided nephrostomy tube. This has resolved and heparin drip was restarted without issue. Patient was seen and examined at the bedside. Patient is reported that his evening has been uneventful. He denies any chest pain, shortness breath, palpitations. Does report that his mouth is very dry. Has not expressed any abdominal pain, no further nausea or vomiting. No diarrhea. Objective: Vitals (See below) General: Patient is sitting up in bed, appears to be comfortable without any acute distress, is awake and alert HEENT: NC, AT CVS: +S1S2 Lungs: Fair air entry b/l, auscultation is without any wheezing, rhonchi or rales Abdomen: Soft, nondistended, nontender, bilateral nephrostomy tubes present Extremities: Lower extremities reveals trace to 1+ pitting edema bilaterally Imaging: Renal US 11/01: Right moderate to severe hydronephrosis. Vascular US 11/01: Positive for deep venous thrombosis in the right lower extremity. Occlusive thrombus in the right popliteal vein to the mid peroneal vein. Abdomen / pelvis CT 11/01: 1. The examination is limited without intravenous or oral bowel preparatory contrast. 2. Bilateral renal findings as described above. I suspect the increased density seen on the left represents changes from previous nephrostomy tube placement which was done 10/22/2020. Without intravenous contrast administration I cannot accurately assess for active bleeding. A resolving hematoma or even urinoma cannot be ruled out. 3. Findings in the urinary bladder as described above. This may need further evaluation. 4. Other findings as described above. Assessment and plan: ELAINE on CKD3 - likely 2/2 post-renal etiology 2/2 obstruction 2/2 Recently diagnosed bladder CA - Renal function has had some improvement this morning - Output from nephrostomy tubes has remained adequate - Imaging noted above - s/p R nephrostomy tube placement on 11/[address] Wall in IR - c/w Fluids as per nephrology - Nephrology on consultation; we appreciate their input Hypernatremia - c/w Fluids as per nephrology - Nephrology on consultation; we appreciate their input R sided hydronephrosis - likely 2/2 obstructed R ureteral stent 2/2 Recently diagnosed bladder CA - See above - Urology on consultation; appreciate their input RLE DVT - Imaging noted above - c/w Heparin drip; will consider transition to Eliquis if no procedures are required s/p Metabolic acidosis - likely 2/2 ELAINE on CKD - s/p Bicarbonate based fluids - Nephrology on consultation; appreciate their input s/p Hyperkalemia UTI - 2/2 Serratia Marcescens - Leukocytosis improving - UA abnormal - Urine culture 11/01: Serratia Marcescens - Blood cultures 11/03: Negative at 24 hours - c/w Ceftriaxone (Day #4) Recently diagnosed bladder cancer with muscular invasion - Recent PET scan reveals evidence of invasion of the cervical os into the space of Retzius and the lower pelvis on the left side anteriorly. Diffuse soft tissue stranding in the tissue of the rectal fossa is suspicious for tomorrow invasion - c/w Morphine for pain control - Patient currently follows at [facility] in [place]; patient has not been given a treatment plan for his bladder cancer by Oncology - Will contact oncologist and discuss case regarding prognosis / follow-up plan Normocytic anemia - Patient had developed hematuria from right nephrostomy tube; this has wolff bsequently resolved - no further episodes of hematuria noted - Hg has remained stable - Will continue to trend Dysphagia / Aspiration risk - Patient has had poor oral intake over the last 1 month - Speech therapy has worked with patient and they have recommended strict NPO - Discussed with patient the need for possible PEG tube placement. However, patient is reluctant to have this given he had this in the past for his esophageal cancer - c/w Strict NPO status and aspiration precautions - Will get Esophagram completed today Hx of Esophageal cancer - s/p chemotherapy and radiation - Dx 02/2017 - See above (Dysphagia) BPH - c/w Tamsulosin / Finasteride - Ibrahim catheter is in place; will discuss with urology about discontinuing Hypothyroidism - c/w Levothyroxine DLP - c/w Simvastatin GERD - c/w Protonix DVT prophylaxis - c/w full anticoagulation with Heparin drip Code status: - DNR/DNI Disposition: - Esophagram today - Will discuss with Oncologist Hailey GARRISON, I+O Hailey GARRISON I+O Laboratory Tests 11/05/20 07:20 Vital Signs Date Time Temp Pulse Resp B/P (MAP) Pulse Ox O2 Delivery O2 Flow Rate FiO2 11/05/20 09:17 18 11/05/20 08:00 97.8 110 152/63 (92) 94 Room Air 11/02/20 17:40 2.0 I&O- Last 24 Hours up to 6 AM 11/05/20 06:00 Intake Total 3942 ml Output Total 2280 ml Balance 1662 ml KIRK AGOSTO MD Nov 05, 2020 09:55
[2020-11-05] MEDS ORDERED: E-Z-GAS II EFFERVESCENT PACKET (SODIUM BICARB./CITRIC ACID/SIMETHICONE) As Ordered ONE (10:07)
[2020-11-05] MEDS ORDERED: E-Z-PAQUE 96% w/w SUSP 176GM BTL As Ordered ONE (10:07)
[2020-11-05] MEDS ORDERED: E-Z-HD 98% w/w 340GM SUSP BTL As Ordered ONE (10:09)
[2020-11-05 12:00] VITALS: BP 132/64
--- NOTE | 2020-11-05 12:45 | IRPON ---
IR Postoperative Note Date Of Procedure: Nov 02, 2020 Time Of Procedure: 16:00 IR Postoperative Note IR Right-sided Percutaneous nephrostomy catheter placement using fluoroscopic and ultrasound guidance. IR Nephrostogram and Ureterogram. IR Ultrasound of the right kidney. IR Moderate sedation. Clinical Information:Right-sided hydronephrosis. Renal failure. Failed right internal stent placed by urology. Physician: Dr. Wall. Procedure: The patient was advised of the benefits, risks, and alternatives of the procedure and informed consent was obtained. A time out was performed with verification of the patient's name, MRN, site of procedure, and type of procedure to be performed. The patient was positioned in the prone position on the angiographic table. The site was prepped and draped in the usual sterile fashion. Moderate sedation was performed by the physician including the presence of an independent trained RN, who assisted in monitoring the patient's level of consciousness and physiological status. Following the administration of fentanyl and Versed, the physician spent 45 minutes of continuous [id number] time with the patient. A technician telecommunication systems radiograph reveals left-sided nephrostomy catheter and right-sided internal double-J ureteral stent. Ultrasound right kidney demonstrates hydronephrosis. The anticipated puncture site on the flank was anesthetized with lidocaine. Using ultrasound guidance, a right lower pole calyx was accessed with a 21 Gauge Chiba needle. A nephrostogram and ureterogram were performed demonstrating sev ere hydronephrosis. There is hang up of contrast in the right renal collecting system and delayed drainage down the stent A [place] wire was then advanced into the collecting system, under fluoroscopy guidance. The needle was then exchanged for a nonvascular introducer set. An Amplatz wire was then advanced into the ureter, under fluoroscopy guidance. This sheath was removed over the wire. A 10 [place] nephrostomy catheter was then advanced, over the wire and under fluoroscopy guidance into the renal collecting system. The pigtail was formed and locked in position. A final nephrostogram and ureterogram were performed confirming positioning of the pigtail within the renal pelvis with hydronephrosis. The catheter was sutured in position with 2-0 Prolene and a sterile dressing applied. The catheter was placed to gravity drainage. The patient tolerated the procedure well and was returned to the PRU in stable condition. EBL: < 5 mL. Complications:None. Conclusion: 1. Nephrostogram and Ureterogram demonstrateright-sided hydronephrosis and delay of drainage from the renal pelvis down the ureter via stent. 2. Successful right-sided nephrostomy catheter placement. Patient to follow-up in IR in 2 weeks. 3. Urine culture was stent. Thank you for this referral. Cc UZIEL Ralph Dr[address] MD Nov 05, 2020 12:45
[2020-11-05 16:00] VITALS: BP 145/72
[2020-11-05 20:00] VITALS: BP 130/59
[2020-11-05] MEDS: FERROUS SULFATE 325MG TAB PO SCH (21:00)
[2020-11-05] MEDS: TAMSULOSIN 0.4 MG CAP PO SCH (21:00)
[2020-11-05] MEDS: SIMVASTATIN 20 MG TAB PO SCH (21:00)
[2020-11-05] MEDS: cefTRIAXone SOD 1 GM in D5W MINI-BAG PLUS 50 ML IV SCH (21:06)
[2020-11-06] VITALS: BP 120/68
[2020-11-06] MEDS: MORPHINE 2 MG/ML 1ML VIAL (J2270) IV PRN (00:08)
--- NOTE | 2020-11-06 00:15 | IPN ---
PROGRESS NOTE DATE: 11/05/2020 SUBJECTIVE: Mr. Alexis is seen this evening on his bedside. I came to see him this morning, however, he was getting swallowing evaluation at that time. Apparently he failed his swallowing and remains n.p.o. He continues with I.V. fluid of half normal saline. His right nephrostomy tube is draining good amount of urine with very light tinged blood. Left nephrostomy is draining clear urine. Patient denies any dyspnea or chest pain. PHYSICAL EXAMINATION: VITALS: Temperature 96.3 degrees Fahrenheit, heart rate 90 per minute, respiratory rate 18 per minute, blood pressure 130/59 mmHg, oxygen saturation 96% on room air. INTAKE/OUTPUT: Records from yesterday show a positive fluid balance by 348 mL. HEENT: Head is atraumatic. Neck is supple and without JVD or thyroid enlargement. LUNGS: Sound clear to auscultation. HEART: Sounds are regular and less tachycardic today. ABDOMEN: Soft and nontender. Bowel sounds are present. Right flank area tenderness has improved. Bilateral nephrostomies are in place. EXTREMITIES: Without any cyanosis or clubbing. NEUROLOGIC: He is awake and without a focal deficit. LABORATORY STUDIES: Today's labs show WBC 12.5, hemoglobin 11.3, hematocrit 36.3. Sodium 148, potassium 4.5, chloride 22, BUN 113, creatinine 5.32, calcium 8.7. Magnesium 2.6. PROBLEMS: 1. Acute kidney injury superimposed on chronic kidney disease: Patient is known to have obstructive uropathy with bilateral hydronephrosis. Now he has bilateral nephrostomies with most recent right nephrostomy tube placement on Thursday of last week. He is draining good amount of urine. Patient is n.p.o. due to difficulty swallowing related to prior history of esophageal cancer. At present, we will continue with I.V. fluid hydration until a final decision is made about enteral feeding. He does not have a feeding tube as yet. 2. Bladder cancer with bilateral hydronephrosis: Patient has bilateral nephrostomies placed. He is not a suitable candidate for major surgery at least at this time due to fair condition and multiple comorbid conditions. 3. DVT: Patient remains on I.V. Heparin drip. He has very minimal hematuria and I have advised the nursing staff to continue with I.V. Heparin drip unless hematuria worsens. 4. Hypernatremia: This is related to volume depletion as patient has been n.p.o. We have changed his I.V. fluid to half normal saline and we will continue with the same. Electrolytes will be checked again tomorrow morning. 5. Anemia: His anemia is very mild and stable. No urgent intervention is needed. 6. Difficulty swallowing with history of esophageal cancer: Patient failed his swallowing evaluation again today. He remains on I.V. fluid at present and we will have to consider some kind of nutrition. He is not receiving any nutrition. A feeding tube is most likely a reasonable option unless he considers to go on comfort measures only. Once feeding tube gets placed, then I will make arrangements for tube feeds and free water.
[2020-11-06 04:00] VITALS: BP 133/75
[2020-11-06] MEDS: NS 0.45% 1,000 ML IV SCH (06:20)
[2020-11-06 06:33] LABS: BASO % 0.3 % (0.0-1.0); EOS # 0.2 10^3/uL (0.0-0.5); EOS % 1.3 % (0.0-3.0); HEMOGLOBIN 10.6 g/dl (13.5-17.5); LYMPH # 0.5 10^3/uL (1.5-5.0); LYMPH % 4.3 % (24.0-44.0); MEAN CORPUSCULAR HEMOGLOBIN 30.5 pg (27.0-33.0); MEAN CORPUSCULAR HGB CONC 31.2 g/dl (32.0-36.5); MEAN CORPUSCULAR VOLUME 97.7 fl (80.0-96.0); MONO # 0.7 10^3/uL (0.0-0.8); MONO % 6.2 % (2.0-8.0); NEUTROPHILS # 10.1 10^3/uL (1.5-8.5); NEUTROPHILS % 85.4 % (36.0-66.0); PLATELET COUNT, AUTOMATED 236 10^3/uL (150-450); RED BLOOD COUNT 3.48 10^6/uL (4.30-6.10); WHITE BLOOD COUNT 11.9 10^3/uL (4.0-10.0)
[2020-11-06 06:50] LABS: CALCIUM LEVEL 8.6 MG/DL (8.8-10.2); CREATININE FOR GFR 4.84 MG/DL (0.70-1.30); GLOMERULAR FILTRATION RATE 12.4 (>35); MAGNESIUM LEVEL 2.4 MG/DL (1.8-2.4); POTASSIUM SERUM 4.8 MEQ/L (3.5-5.1)
[2020-11-06 08:00] VITALS: BP 118/62
[2020-11-06] MEDS: ASPIRIN 81MG ENTERIC TABLET PO SCH (08:16)
[2020-11-06] MEDS: LEVOTHYROXINE 75MCG TABLET (0.075MG) PO SCH (08:16)
[2020-11-06] MEDS: FINASTERIDE 5 MG TAB PO SCH (08:16)
[2020-11-06] MEDS: DOCUSATE SODIUM 100MG CAPSULE PO SCH ×2 (08:16→21:00)
[2020-11-06] MEDS: PANTOPRAZOLE 40MG TAB (PROTONIX) PO SCH (08:16)
--- NOTE | 2020-11-06 08:42 | REP ---
INDICATION: Dysphagia. COMPARISON: None TECHNIQUE: This procedure was performed by Jennifer Fuentes [facility], under the direct supervision of Dr. Goncalves. Images were reviewed with Dr. Goncalves prior to dictation. Liquid barium was given anterior oblique position in order to perform a single contrast esophagram examination. FINDINGS: A single view PA chest x-ray is submitted as a diet clerk film. The superior mediastinal structures are midline. The heart size is within normal limits. The lungs are clear. This exam extremely limited due to lack patient mobility. The oral and pharyngeal stages of deglutition were unremarkable. Esophageal transport is prompt and efficient and there is no evidence of esophagitis, stricture, or mucosal ring. No aspiration was visualized during the exam. . IMPRESSION: Unremarkable limited esophagram. 0.1 minutes of fluoroscopy time was utilized for this procedure. Some fluoroscopic images are performed with last image hold technology. These images require no additional radiation. <Electronically signed by Jennifer Fuentes > 11/05/20 [id number] <Electronically signed by Boone Goncalves > 11/06/20 [id number]
[2020-11-06] MEDS: SODIUM BICARBONATE 50 MEQ in D5W 1,000 ML IV SCH ×2 (09:08→19:39)
[2020-11-06] MEDS: POLYVINYL ALCOHOL OPHTH SOLN 15 ML(LIQUITEARS) OU SCH ×2 (09:08→21:14)
[2020-11-06 12:00] VITALS: BP 110/72
--- NOTE | 2020-11-06 13:17 | IPN ---
PROGRESS NOTE DATE: 11/06/2020 SUBJECTIVE: Mr. Alexis is seen this morning on his bedside. He is currently working with speech therapist about his swallowing. He underwent an esophagram yesterday which was reported unremarkable. Patient denies any dyspnea or chest pain and remains on IV fluid. He has been NPO due to difficulty swallowing. OBJECTIVE: VITAL SIGNS: Temperature is 97.2 degrees Fahrenheit, heart rate is 90 per minute and respiratory rate is 18 per minute. Blood pressure is 110/72 mmHg and oxygen saturation 96% on room air. HEAD AND NECK: His head is atraumatic. Neck is supple without JVD or thyroid enlargement. Oral mucosa is dry with white coating on the tongue and white curdy material on his palate. I am not sure if it is thrush or if it is dried barium from yesterday's study. HEART: His heart sounds are irregular. LUNGS: Slightly diminished breath sounds due to poor inspiratory effort. ABDOMEN: Soft and nontender. Bowel sounds are normal. EXTREMITIES: Without any cyanosis or clubbing. NEUROLOGIC: He is at his baseline mentation. LABORATORY DATA: Today's labs shows WBC count 11.9, hemoglobin 10.6 and hematocrit 34.0. Sodium 148, potassium 4.8, CO2 18, BUN 114 and creatinine 4.84. Glucose 96 and calcium 8.6. PROBLEMS: 1. Acute kidney injury superimposed on chronic kidney disease. The patient now has bilateral nephrostomies and kidney function has started to improve since his right nephrostomy was placed. Will continue with IV fluid hydration as the patient has been NPO. 2. Hypernatremia. His hypernatremia remains unchanged despite IV fluid at half normal saline. I am going to switch him to D5W with some sodium bicarbonate 50 mEq in each liter and continue at 100 ml/hr. 3. Metabolic acidosis. Patient has mild metabolic acidosis now and we are adding sodium bicarbonate 50 mEq in each liter of IV fluid. 4. Nutrition. Patient has been NPO and he is being evaluated for swallowing. If he could not swallow, then he is likely to require a feeding tube. I have explained to the patient and he is working with speech therapist right now for swallowing. His esophagogram was normal yesterday. 5. Bilateral hydronephrosis with bladder cancer. Patient had bilateral hydronephrosis and underwent bilateral nephrostomies. He has been seen by Urology. I am not sure if he is going to have any intervention for his bladder cancer at this point.
[2020-11-06] MEDS: HEPARIN DRIP 25,000 UNITS in IV 1 EA IV SCH (13:44)
[2020-11-06 14:26] LABS: ALBUMIN % 42.6 % (55.8-66.1); ALPHA-1-GLOBULIN % 9.7 % (2.9-4.9); ALPHA-2-GLOBULINS % 17.3 % (7.1-11.8)
[2020-11-06 14:27] LABS: ALBUMIN 2.81 GM/DL (3.29-5.55); ALPHA-1-GLOBULINS 0.64 GM/DL (0.17-0.41); ALPHA-2-GLOBULINS 1.14 GM/DL (0.42-0.99); BETA-1-GLOBULINS 0.36 GM/DL (0.28-0.60); BETA-1-GLOBULINS % 5.5 % (4.7-7.2); BETA-2-GLOBULINS 0.46 GM/DL (0.19-0.55); BETA-2-GLOBULINS % 6.9 % (3.2-6.5); GAMMA GLOBULINS 1.19 GM/DL (0.65-1.58)
[2020-11-06 16:00] VITALS: BP 117/69
[2020-11-06 20:00] VITALS: BP 116/60
[2020-11-06] MEDS: TAMSULOSIN 0.4 MG CAP PO SCH (21:00)
[2020-11-06] MEDS: SIMVASTATIN 20 MG TAB PO SCH (21:00)
[2020-11-06] MEDS: FERROUS SULFATE 325MG TAB PO SCH (21:00)
[2020-11-06] MEDS: cefTRIAXone SOD 1 GM in D5W MINI-BAG PLUS 50 ML IV SCH (21:16)
[2020-11-07] VITALS: BP 129/76
[2020-11-07 00:59] LABS: HEMATOCRIT 36.8 % (42.0-52.0); HEMOGLOBIN 11.4 g/dl (13.5-17.5)
[2020-11-07] MEDS: HEPARIN DRIP 25,000 UNITS in IV 1 EA IV SCH ×2 (02:30→09:21)
[2020-11-07 04:00] VITALS: BP 122/67
[2020-11-07 06:00] LABS: BASO % 0.3 % (0.0-1.0); EOS # 0.1 10^3/uL (0.0-0.5); EOS % 1.1 % (0.0-3.0); HEMATOCRIT 33.5 % (42.0-52.0); HEMOGLOBIN 10.5 g/dl (13.5-17.5); LYMPH # 0.5 10^3/uL (1.5-5.0); LYMPH % 4.8 % (24.0-44.0); MEAN CORPUSCULAR HEMOGLOBIN 30.3 pg (27.0-33.0); MEAN CORPUSCULAR HGB CONC 31.3 g/dl (32.0-36.5); MEAN CORPUSCULAR VOLUME 96.8 fl (80.0-96.0); MONO # 0.7 10^3/uL (0.0-0.8); MONO % 6.9 % (2.0-8.0); NEUTROPHILS # 8.8 10^3/uL (1.5-8.5); NEUTROPHILS % 84.5 % (36.0-66.0); PLATELET COUNT, AUTOMATED 222 10^3/uL (150-450); RED BLOOD COUNT 3.46 10^6/uL (4.30-6.10); WHITE BLOOD COUNT 10.4 10^3/uL (4.0-10.0)
[2020-11-07 06:27] LABS: CALCIUM LEVEL 8.3 MG/DL (8.8-10.2); CREATININE FOR GFR 4.77 MG/DL (0.70-1.30); GLOMERULAR FILTRATION RATE 12.6 (>35); MAGNESIUM LEVEL 2.3 MG/DL (1.8-2.4); POTASSIUM SERUM 4.3 MEQ/L (3.5-5.1)
[2020-11-07 07:57] VITALS: BP 153/75
[2020-11-07] MEDS: POLYVINYL ALCOHOL OPHTH SOLN 15 ML(LIQUITEARS) OU SCH ×2 (09:00→20:59)
[2020-11-07] MEDS: LEVOTHYROXINE 75MCG TABLET (0.075MG) PO SCH (09:00)
[2020-11-07] MEDS: FINASTERIDE 5 MG TAB PO SCH (09:00)
[2020-11-07] MEDS: DOCUSATE SODIUM 100MG CAPSULE PO SCH ×3 (09:00→21:33)
[2020-11-07] MEDS: ASPIRIN 81MG ENTERIC TABLET PO SCH (09:00)
[2020-11-07] MEDS: PANTOPRAZOLE 40MG TAB (PROTONIX) PO SCH (09:00)
[2020-11-07] MEDS: MORPHINE 2 MG/ML 1ML VIAL (J2270) IV PRN ×3 (09:37→20:59)
--- NOTE | 2020-11-07 10:43 | IPN ---
PROGRESS NOTE DATE: 11/07/2020 SUBJECTIVE: Louis is seen in the PCU. My note from yesterday does not look like it has been transcribed yet. He passed his swallowing evaluation without aspiration. The nursing staff says he does not like to take oral feedings, he does drink but he does not seem to be eating well. His acute kidney injury is superimposed on chronic kidney disease, followed by Nephrology, as well as hypernatremia, has bilateral hydronephrosis from bladder cancer, has a recent right nephrostomy, has a small amount of bloody drainage around it per nursing staff. Denies any fevers, chills or significant flank pain. He was recently diagnosed with bladder cancer and muscular invasion. [facility] in [place]. OBJECTIVE: VITAL SIGNS: Blood pressure 153/75, blood pressures are averaging around 120/60, 95% O2 saturation, afebrile. GENERAL APPEARANCE: Alert, conversant, in no distress, looks chronically ill. HEENT: Dentition in poor repair. LUNGS: Clear. HEART: Regular rhythm, there is as 1/6 systolic ejection murmur. ABDOMEN: Soft, nontender, no masses. Right nephrostomy tube. No peripheral edema. Moves arms and legs with equal strength. LABORATORY DATA: White count 10.4, hemoglobin is 10.5, platelets 222,000. Sodium is 146 which is down from yesterday, potassium 4.3, BUN 100, creatinine 4.7 which is improved from yesterday as well. IMPRESSION: 1. Serratia UTI, he is on Rocephin and it is day #6 for that. 2. Bilateral hydronephrosis from bladder cancer with muscular invasion status post right nephrostomy. He has a small amount of bleeding from it. Will order a CBC later today. Renal function is slowly and gradually improving. 3. Acute kidney injury superimposed on chronic kidney disease, being followed by Urology, renal function is gradually slowly improving. Hydration with both intravenous and per oral feedings. 4. Hypernatremia, slowly improving with oral feedings. 5. History of esophageal cancer. His esophagram showed aspiration. Speech therapy is working with him. The nursing staff says he is reluctant to each much. 6. BPH, he is on Tamsulosin, finasteride, catheter is as per Urology. 7. Right lower extremity DVT. Currently on a Heparin drip. Will probably transition this to an oral anticoagulant tomorrow if his hemoglobin remains stable.
[2020-11-07 12:00] VITALS: BP 144/76
[2020-11-07 14:24] LABS: INR 1.23; PROTHROMBIN TIME 15.8 SECONDS (12.5-14.3)
[2020-11-07 14:26] LABS: PARTIAL THROMBOPLASTIN TIME 88.3 SECONDS (24.2-38.5)
--- NOTE | 2020-11-07 14:55 | IPN ---
NEPHROLOGY PROGRESS NOTE DATE: 11/07/2020 SUBJECTIVE: Mr. Alexis is seen this morning at his bedside. He is feeling about the same. He failed a swallowing evaluation again yesterday and remains n.p.o. He is currently receiving IV fluids at 100 mL per hour. Nursing staff reports that last night urine in the right nephrostomy tube became bloody with some blood clots. Left nephrostomy is still draining clear urine. OBJECTIVE: PHYSICAL EXAMINATION: VITAL SIGNS: Temperature 97.9 degrees Fahrenheit, heart rate 94 per minute, respiratory rate 18 per minute, blood pressure 153/75 mm of mercury and oxygen saturation is 95% on room air. HEENT: His head is atraumatic. Oral mucosa is dry. NECK: Supple and without JVD or thyroid enlargement. HEART: Irregular in rhythm. LUNGS: Clear to auscultation. ABDOMEN: Soft and nontender and bowel sounds are present. He has bilateral nephrostomy tubes in place. EXTREMITIES: Without any edema on the legs. NEUROLOGICAL: He is awake and able to answer simple questions. LABORATORY STUDIES: Today's labs show a WBC count 10.4, hemoglobin 10.5 and hematocrit 33.5. Sodium 146, potassium 4.3, CO2 25, BUN 100 and creatinine 4.77. Glucose 130 and calcium 8.3. PROBLEMS: 1. Acute kidney injury superimposed on chronic kidney disease - kidney function is improving gradually with IV fluid hydration. At this point his nephrostomy tubes are draining a good amount of urine and we will continue IV fluids as the patient had been n.p.o. 2. Bilateral hydronephrosis with history of bladder cancer nephrostomy tubes are draining and will have to continue with the same. He is not felt a suitable candidate for bladder surgery at this point. 3. DVT - The patient remains on IV Heparin drip and currently has developed gross hematuria from his right nephrostomy. His situation is quite complicated due to cancer and inability to swallow. 4. Hypernatremia - sodium level is gradually improving and we will continue with the current IV fluids for the next 24 hours. 5. Metabolic acidosis He is currently receiving sodium bicarbonate in the IV fluid and acidosis has improved. We will continue the same and recheck his chemistries tomorrow. 6. Nutrition - The patient has been n.p.o. due to inability to swallow. Nursing staff reports that he did not wish to have a feeding tube placed according to his advanced directives. His is scheduled to meet with Dr. Teixeira this afternoon. We will wait for a final decision. 7. Anemia - at this point his anemia is stable with mild gross hematuria which has already improved. No urgent need for a transfusion.
[2020-11-07 16:00] VITALS: BP 134/72
[2020-11-07] MEDS: SODIUM BICARBONATE 50 MEQ in D5W 1,000 ML IV SCH (16:53)
[2020-11-07 17:00] LABS: HEMATOCRIT 32.6 % (42.0-52.0); HEMOGLOBIN 10.4 g/dl (13.5-17.5)
[2020-11-07 20:00] VITALS: BP 107/57
[2020-11-07] MEDS: cefTRIAXone SOD 1 GM in D5W MINI-BAG PLUS 50 ML IV SCH (20:58)
[2020-11-07] MEDS: TAMSULOSIN 0.4 MG CAP PO SCH (20:59)
[2020-11-07] MEDS: FERROUS SULFATE 325MG TAB PO SCH (20:59)
[2020-11-07] MEDS: SIMVASTATIN 20 MG TAB PO SCH (20:59)
[2020-11-08] VITALS: BP 116/60
[2020-11-08] MEDS: SODIUM BICARBONATE 50 MEQ in D5W 1,000 ML IV SCH ×4 (03:27→20:31)
[2020-11-08 04:00] VITALS: BP 129/78
[2020-11-08] MEDS: MORPHINE 2 MG/ML 1ML VIAL (J2270) IV PRN (04:19)
[2020-11-08] MEDS: HEPARIN DRIP 25,000 UNITS in IV 1 EA IV SCH (05:42)
[2020-11-08 05:44] LABS: BASO % 0.4 % (0.0-1.0); EOS # 0.1 10^3/uL (0.0-0.5); EOS % 1.4 % (0.0-3.0); HEMATOCRIT 35.7 % (42.0-52.0); LYMPH # 0.4 10^3/uL (1.5-5.0); LYMPH % 4.7 % (24.0-44.0); MEAN CORPUSCULAR HEMOGLOBIN 30.1 pg (27.0-33.0); MEAN CORPUSCULAR HGB CONC 30.8 g/dl (32.0-36.5); MEAN CORPUSCULAR VOLUME 97.5 fl (80.0-96.0); MONO # 0.6 10^3/uL (0.0-0.8); MONO % 7.1 % (2.0-8.0); NEUTROPHILS # 7.1 10^3/uL (1.5-8.5); PLATELET COUNT, AUTOMATED 213 10^3/uL (150-450); RED BLOOD COUNT 3.66 10^6/uL (4.30-6.10); WHITE BLOOD COUNT 8.5 10^3/uL (4.0-10.0)
[2020-11-08 06:03] LABS: CALCIUM LEVEL 8.7 MG/DL (8.8-10.2); CREATININE FOR GFR 4.61 MG/DL (0.70-1.30); GLOMERULAR FILTRATION RATE 13.1 (>35); MAGNESIUM LEVEL 2.2 MG/DL (1.8-2.4); POTASSIUM SERUM 3.9 MEQ/L (3.5-5.1)
[2020-11-08 08:00] VITALS: BP 112/57
[2020-11-08] MEDS: DOCUSATE SODIUM 100MG CAPSULE PO SCH ×2 (08:45→20:31)
[2020-11-08] MEDS: PANTOPRAZOLE 40MG TAB (PROTONIX) PO SCH (08:45)
[2020-11-08] MEDS: FINASTERIDE 5 MG TAB PO SCH (08:45)
[2020-11-08] MEDS: ASPIRIN 81MG ENTERIC TABLET PO SCH (08:45)
[2020-11-08] MEDS: LEVOTHYROXINE 75MCG TABLET (0.075MG) PO SCH (08:46)
[2020-11-08] MEDS: POLYVINYL ALCOHOL OPHTH SOLN 15 ML(LIQUITEARS) OU SCH ×2 (08:46→20:31)
--- NOTE | 2020-11-08 11:03 | IPN ---
PROGRESS NOTE DATE: 11/08/2020 SUBJECTIVE: Louis is seen in the PCU, really not much change from yesterday but oral intake is still limited although he is tolerating it without coughing or shortness of breath. He is producing sufficient quantities of urine. Renal function is slowly improving. Has a history of bladder cancer which is severe. I spoke with his yesterday. We discussed his condition and I answered all of her questions. She understands his bladder cancer is invasive and he does have an oncologist in [place] and she plans to discuss the condition after he is discharged. He continues to be on a Heparin drip for his right lower extremity DVT, we are however holding off changing him to an oral anticoagulant until we made sure his CBC was stable as he had some bleeding around the nephrostomy area. OBJECTIVE: VITAL SIGNS: Afebrile. Vital signs stable. Blood pressure 112/67. GENERAL APPEARANCE: Lying in bed, Parkinsonian appearance. LUNGS: Clear. HEART: Regular rate and rhythm. ABDOMEN: Soft, nontender. EXTREMITIES: No peripheral edema. LABORATORY DATA: White count 6.5, hemoglobin 11 which is stable, platelets 213,000. Sodium 144, potassium is 3.9, BUN 84, creatinine 4.6. IMPRESSION: 1. Serratia urinary tract infection, continue Rocephin, this is day #7, will discontinue this tomorrow. 2. DVT of right lower extremity, stop the Heparin drip and begin Eliquis 5 mg b.i.d. He is already been on IV Heparin so we are not starting with a loading dose of this. 3. Bilateral hydronephrosis from invasive bladder cancer. He has a right nephrostomy. He has a urologist and oncologist in [place]. 4. Acute kidney injury superimposed on chronic kidney disease, appreciate Nephrology's involvement, Dr. Monique has been seeing him daily. 5. History of esophageal cancer, his last esophagram showed no aspiration. Speech Therapy is working with him. We are encouraging him to eat and drink and I discussed this with the family yesterday as well. 6. BPH. He is on Tamsulosin and finasteride. His catheter is still in place.
[2020-11-08 12:00] VITALS: BP 112/57
[2020-11-08] MEDS ORDERED: APIXABAN 5 MG TAB (ELIQUIS) PO SCH (12:30)
[2020-11-08] MEDS ORDERED: HEPARIN DRIP 25,000 UNITS in IV 1 EA IV SCH (18:20)
[2020-11-08] MEDS ORDERED: HEPARIN SOD (PORCINE) 5000UNITS/ML 1ML VIAL/SYRINGE IV PRN (18:20)
[2020-11-08 20:00] VITALS: BP 115/62
[2020-11-08] MEDS: cefTRIAXone SOD 1 GM in D5W MINI-BAG PLUS 50 ML IV SCH (20:31)
[2020-11-08] MEDS: SIMVASTATIN 20 MG TAB PO SCH (20:31)
[2020-11-08] MEDS: FERROUS SULFATE 325MG TAB PO SCH (20:31)
[2020-11-08] MEDS: TAMSULOSIN 0.4 MG CAP PO SCH (20:31)
[2020-11-09] VITALS: BP 115/61
[2020-11-09] MEDS: SODIUM BICARBONATE 50 MEQ in D5W 1,000 ML IV SCH (03:46)
[2020-11-09 04:00] VITALS: BP 110/61
[2020-11-09 06:07] LABS: BASO % 0.4 % (0.0-1.0); EOS # 0.1 10^3/uL (0.0-0.5); EOS % 1.4 % (0.0-3.0); HEMATOCRIT 32.8 % (42.0-52.0); HEMOGLOBIN 10.2 g/dl (13.5-17.5); LYMPH # 0.6 10^3/uL (1.5-5.0); LYMPH % 8.1 % (24.0-44.0); MEAN CORPUSCULAR HEMOGLOBIN 30.4 pg (27.0-33.0); MEAN CORPUSCULAR HGB CONC 31.1 g/dl (32.0-36.5); MEAN CORPUSCULAR VOLUME 97.6 fl (80.0-96.0); MONO # 0.9 10^3/uL (0.0-0.8); MONO % 12.6 % (2.0-8.0); NEUTROPHILS # 5.4 10^3/uL (1.5-8.5); NEUTROPHILS % 75.7 % (36.0-66.0); PLATELET COUNT, AUTOMATED 194 10^3/uL (150-450); RED BLOOD COUNT 3.36 10^6/uL (4.30-6.10); WHITE BLOOD COUNT 7.2 10^3/uL (4.0-10.0)
[2020-11-09 06:20] LABS: CALCIUM LEVEL 8.4 MG/DL (8.8-10.2); CREATININE FOR GFR 4.34 MG/DL (0.70-1.30); GLOMERULAR FILTRATION RATE 14.1 (>35); MAGNESIUM LEVEL 1.9 MG/DL (1.8-2.4); POTASSIUM SERUM 3.5 MEQ/L (3.5-5.1)
[2020-11-09 06:22] LABS: INR 1.2; PROTHROMBIN TIME 15.5 SECONDS (12.5-14.3)
[2020-11-09 06:39] LABS: PARTIAL THROMBOPLASTIN TIME 35.7 SECONDS (24.2-38.5)
[2020-11-09 08:00] VITALS: BP 116/65
[2020-11-09] MEDS ORDERED: KCL 10MEQ IN D5/0.45NS 1000ML 1,000 ML IV SCH (08:05)
--- NOTE | 2020-11-09 08:08 | CR ---
CONSULTATION DATE: 11/08/2020 REASON FOR CONSULTATION: PEG-tube placement. BRIEF HISTORY OF PRESENT ILLNESS: Patient is an 80-year-old male with failure to thrive, history of esophageal cancer status post chemotherapy, radiation therapy, hypertension, who presents with bilateral hydronephrosis and had ureterostomies placed and was diagnosed with bladder cancer. I was asked to see him because of poor p.o. intake and essentially failure to thrive. The patient has had a previous PEG-tube placed when he had his radiation and chemotherapy for his esophageal cancer. PAST MEDICAL HISTORY: Significant for a history of hydronephrosis secondary to bladder outlet obstruction, BPH, chronic kidney disease, hypertension, hyperlipidemia, gastroesophageal reflux disease, glaucoma, hypothyroidism, esophageal cancer, nephrostomy tube placements, TURPs, cystoscopy, Port-A-Cath placements. PHYSICAL EXAMINATION: Physical examination reveals a frail 80-year-old who looks older than stated age. He is not appropriate to answering questions at this time and is a poor historian. Lungs are clear anteriorly although diminished. Heart is regular. Abdomen is soft, nontender and nondistended. He has a previous PEG-tube site well-healed. IMPRESSION/PLAN: Patient has a failure to thrive. Unfortunately, just his presentation is concerning that he is terminal at this point but I will defer that assessment evaluation to his primary care. In general, from a surgical standpoint, we can provide a service to place a PEG-tube and if the family so desires to prolong his life, I will be available to proceed with this gastrostomy tube placement. The patient I feel is not appropriate for consenting and thus will need to discuss this with the prior to the procedure. Will discuss this tomorrow with her and determine our next course of action. Will have to stop his anticoagulation for the procedure at least six hours before and see if we cannot arrange to have this placed at some point tomorrow.
[2020-11-09] MEDS: ASPIRIN 81MG ENTERIC TABLET PO SCH (09:00)
[2020-11-09] MEDS: PANTOPRAZOLE 40MG TAB (PROTONIX) PO SCH (09:00)
[2020-11-09] MEDS: DOCUSATE SODIUM 100MG CAPSULE PO SCH ×2 (09:00→20:20)
[2020-11-09] MEDS: FINASTERIDE 5 MG TAB PO SCH (09:00)
[2020-11-09] MEDS: LEVOTHYROXINE 75MCG TABLET (0.075MG) PO SCH (09:00)
[2020-11-09] MEDS: POLYVINYL ALCOHOL OPHTH SOLN 15 ML(LIQUITEARS) OU SCH ×2 (09:42→22:37)
--- NOTE | 2020-11-09 10:06 | IPN ---
PROGRESS NOTE DATE: 11/09/2020 SUBJECTIVE: Louis is seen in the PCU. I had a good long discussion with his and health care proxy, Fanta, yesterday. She feels that he should now be transitioned to comfort measures but with some very specific provisions: She is insisting on a PEG-tube placement prior to his discharge with Hospice. She also wants his Ibrahim catheter to remain in place upon discharge as a condition for him going home with her as well. The patient does have dementia and does lack capacity to make decisions. He previously had expressed that he did not want a PEG-tube but she is his health care proxy and she correctly pointed out to me that he lacks capacity to make those decisions. OBJECTIVE: VITAL SIGNS: Afebrile. Vital signs are stable. Blood pressure 116/65. GENERAL APPEARANCE: He is alert and conversant but his answers are vague and lack content. LUNGS: Clear. HEART: Regular rate and rhythm. ABDOMEN: Soft and nontender. EXTREMITIES: No peripheral edema. LABORATORY DATA: CBC is stable. BMP is stable. Creatinine is 4.3. IMPRESSION: 1. Feeding difficulty, the is insisting on a PEG-tube. I spoke to Dr. Lorenzo yesterday, he has seen the patient in consultation and is planning the procedure. 2. Serratia urinary tract infection, he has completed his last day of Rocephin today. Will discontinue his antibiotic after his next dose. 3. DVT of the right lower extremity. He is back on a Heparin drip. We tried Eliquis but he would not swallow any of his pills. Once his PEG-tube is in we can transition him to Eliquis. 4. Bilateral hydronephrosis from invasive bladder cancer. His urologist and oncologist are in [place]. His prognosis is poor. Hospice is appropriate. 5. Acute kidney injury superimposed on chronic kidney disease. The improvement of renal function appears to have plateaued and he looks to probably be at his new baseline. 6. History of esophageal cancer. Patient is refusing to eat despite passing swallowing study. 7. Parkinson's with dementia. Comfort measures are appropriate and discharge with Hospice care will be arranged after the PEG-tube is placed. As noted above, the is insisting a Ibrahim catheter being in place upon discharge as well.
[2020-11-09] MEDS ORDERED: ONDANSETRON 4MG/2ML VIAL As Ordered ONE (12:22)
[2020-11-09] MEDS ORDERED: MIDAZOLAM INJ 2MG/2ML VIAL (J2250 PER 1MG) As Ordered ONE (12:22)
[2020-11-09] MEDS ORDERED: LIDOCAINE 2% 100MG/5ML SDV (FOR ANES.) As Ordered ONE (12:22)
[2020-11-09] MEDS ORDERED: propofoL 200 MG/20 ML VIAL As Ordered ONE (12:22)
[2020-11-09] MEDS ORDERED: fentaNYL 100 MCG/2 ML INJECTION (J3010) As Ordered ONE (12:22)
[2020-11-09] MEDS ORDERED: KETAMINE HCL 200 MG/20 ML VIAL As Ordered ONE (13:11)
[2020-11-09] MEDS ORDERED: ONDANSETRON 4MG/2ML VIAL IV PRN (14:00)
[2020-11-09] MEDS ORDERED: fentaNYL 100 MCG/2 ML INJECTION (J3010) IV PRN (14:00)
[2020-11-09] MEDS ORDERED: LR 1,000 ML IV SCH (14:00)
[2020-11-09 15:00] VITALS: BP 115/61
[2020-11-09 16:00] VITALS: BP 112/63
[2020-11-09] MEDS ORDERED: SCOPOLAMINE 1MG TRANSDERMAL PATCH TOP PRN (16:35)
[2020-11-09] MEDS ORDERED: LORazepam 1 MG TAB PO PRN (16:35)
[2020-11-09] MEDS ORDERED: MORPHINE SULFATE ORAL SOLN 10 MG/5 ML UD SL PRN (16:35)
[2020-11-09] MEDS ORDERED: ONDANSETRON 4 MG ORAL DISINTEGRATING TAB PO PRN (16:35)
[2020-11-09] MEDS ORDERED: FLEET ENEMA PR PRN (16:35)
[2020-11-09] MEDS ORDERED: SODIUM CHLORIDE 0.9% INJ 10 ML SYR IV PRN (17:05)
--- NOTE | 2020-11-09 17:31 | IPN ---
NEPHROLOGY PROGRESS NOTE DATE: 11/09/2020 SUBJECTIVE: Mr. Alexis is seen this morning on his beside. He remains about the same and laying in bed. His nephrostomy tubes are draining clear urine. He did have hematuria and right nephrostomy which has now cleared. He continues with intravenous (IV) fluid, as his oral intake is essentially zero. He has been allowed to eat; however, patient does not want to eat, as he has difficulty swallowing. PHYSICAL EXAMINATION: Temperature 97.8 degrees Fahrenheit, heart rate 86 per minute, respiratory rate 18 per minute, blood pressure 116/65 mmHg, oxygen saturation 94%. HEAD: Atraumatic. NECK: Supple and without jugular venous distention (JVD) or thyroid enlargement. HEART SOUNDS: Regular. LUNGS: Clear to auscultation. ABDOMEN: Soft and nontender. Bowel sounds are normal. EXTREMITIES: Without any cyanosis or clubbing. Bilateral nephrostomy tubes are draining completely clear urine on the left side and minimal blood-tinged in the right bag. Ibrahim catheter is also draining dark brown urine. NEUROLOGIC: He is at his baseline mentation. LABORATORY DATA: Today's labs show WBC 7.2, hemoglobin 10.2, hematocrit 32.8. Sodium 142, potassium 3.5, CO2 34, BUN 73, creatinine 4.34. PROBLEMS: 1. Acute kidney injury superimposed on chronic kidney disease. Kidney function gradually improving. We will continue with IV fluid hydration until he gets some kind of feeding. He is not able to swallow at this point and he is going to possibly have a percutaneous endoscopic gastrostomy (PEG) tube placed. Once his PEG tube becomes functional, then we can switch him to nutrition through the PEG tube along with free water. 2. Metabolic acidosis. His acidosis is completely corrected and I am going to stop sodium bicarbonate in the IV fluid. Will change his IV fluid to D5 half-normal saline. 3. Hypokalemia. Potassium level is down to 3.5. I will be adding 10 mEq potassium chloride in a solution of IV fluid. 4. Bilateral hydronephrosis with bladder cancer. Patient has bilateral nephrostomy tubes and they are draining clear urine. Patient is not felt to be a suitable candidate for bladder surgery. 5. History of esophageal cancer with difficulty swallowing. Patient has been unable to swallow, though his esophagogram was reported unremarkable. Percutaneous endoscopic gastrostomy (PEG) tube is being placed. 6. Deep venous thrombosis (DVT). Patient will require long-term anticoagulation. He was on heparin drip, which is currently on hold. He can go back on Eliquis.
[2020-11-09] MEDS ORDERED: SODIUM CHLORIDE 0.9% INJ 10 ML SYR IV SCH (18:00)
[2020-11-10] MEDS: DOCUSATE SODIUM 100MG CAPSULE PO SCH ×2 (07:21→20:01)
[2020-11-10] MEDS: POLYVINYL ALCOHOL OPHTH SOLN 15 ML(LIQUITEARS) OU SCH ×2 (08:04→20:01)
--- NOTE | 2020-11-10 10:19 | IPN ---
PROGRESS NOTE DATE: 11/10/2020 Louis is on RELATIONSHIP SPECIALIST level of care. Yesterday after rounds, I reached [facility] service and spoke with the field contractor nurse. She indicated that they do not do intake of new patients over the weekend, which I anticipated. I did send demographic information and they anticipate picking up his case as early as Thursday. We need to fax referral medical records to their office at [phone] and then, hopefully we will be able to arrange his discharge to Hospice care on Thursday.
[2020-11-11] MEDS: DOCUSATE SODIUM 100MG CAPSULE PO SCH ×2 (08:18→19:38)
[2020-11-11] MEDS: POLYVINYL ALCOHOL OPHTH SOLN 15 ML(LIQUITEARS) OU SCH ×2 (08:18→21:00)
--- NOTE | 2020-11-11 09:50 | IPN ---
PROGRESS NOTE DATE: 11/11/2020 Louis is seen together with his Fanta. He is on comfort measures now. His comfort needs are being met. He is very comfortable. As noted yesterday, I spoke with the [facility] on Thursday and we need to fax them his records. would like a prescription for a hospital bed and [facility] might be able to provide that for her. This all needs to be set up tomorrow and [facility] will need to get involved with his discharge plan. I will discharge him to [facility] once arrangements are made.
[2020-11-12] MEDS: DOCUSATE SODIUM 100MG CAPSULE PO SCH ×2 (07:56→21:00)
[2020-11-12] MEDS: POLYVINYL ALCOHOL OPHTH SOLN 15 ML(LIQUITEARS) OU SCH ×2 (07:56→21:00)
[2020-11-12] MEDS ORDERED: ATIV1TAB7 PO (10:57)
[2020-11-12] MEDS ORDERED: MORP1SOL4 SL (10:57)
[2020-11-12] MEDS ORDERED: SCOP1PAT2 TOP (10:57)
--- NOTE | 2020-11-12 15:52 | DSES ---
DISCHARGE SUMMARY DATE OF ADMISSION: 11/02/2020 DATE OF DISCHARGE: 11/12/2020 PRINCIPAL DIAGNOSIS: 1. Acute on chronic kidney injury secondary to bilateral hydronephrosis from invasive bladder cancer. PROCEDURE: Right nephrostomy tube. SECONDARY DIAGNOSES: 1. Deep venous thrombosis (DVT) right lower extremity. 2. Serratia urinary tract infection. 3. History of esophageal cancer with feeding difficulties. 4. Parkinson's disease with dementia. HISTORY: Patient was admitted with acute renal failure. He has bladder cancer, which is invading bladder muscle. Has urologist and oncologist in [place]. HOSPITAL COURSE: He had a right nephrostomy tube placed. He had Serratia grow out of his urine. He is free of the Rocephin. He was found to have a deep venous thrombosis (DVT) of his right lower extremity. He was placed on a heparin drip. He had a lot of swallowing problems. He has esophageal cancer and swallowing was difficult. His ultimately wanted him on comfort measures and wanted a percutaneous endoscopic gastrostomy (PEG) tube placed as part of comfort measures, which is not typical, but we tried to honor that request. Unfortunately, his esophageal cancer has progressed to the point where an endoscope could not be navigated safely past this, so PEG tube placement was abandoned and she consented to comfort measures without PEG tube. I have been in communication with [facility] and they will be accepting his case. We will send comfort medications through the pharmacy there today with Roxanol 5 mg every 2 hours as needed, Atarax 1 mg sublingual every 4 hours as needed and transdermal scopolamine patch. Comfort measures, DO NOT RESUSCITATE (DNR)/DO NOT INTUBATE (DNI), which we made out during this hospitalization. Prognosis is poor. Hospice care is appropriate.
[2020-11-13] MEDS: POLYVINYL ALCOHOL OPHTH SOLN 15 ML(LIQUITEARS) OU SCH (08:51)
[2020-11-13] MEDS: DOCUSATE SODIUM 100MG CAPSULE PO SCH (08:51)
--- NOTE | 2020-11-23 09:14 | DSES ---
DISCHARGE SUMMARY DATE OF ADMISSION: 11/02/2020 DATE OF DISCHARGE: 11/13/2020 ADDENDUM Patient was discharged on November 12. Apparently did not leave until November 13. Nothing of consequence occurred in the interim to change the discharge summary.
--- NOTE | 2021-01-04 17:09 | RO ---
OPERATIVE NOTE DATE OF OPERATION: 11/09/2020 PRINCIPLE DIAGNOSIS: Dysphagia. ASSOCIATED DIAGNOSIS: Esophageal stricture/mass. PROCEDURE: Esophagogastroduodenoscopy (EGD). SURGEON: Dr. Tigre Lorenzo ANESTHESIA: General. ESTIMATED BLOOD LOSS: Minimal. BRIEF PROCEDURE SUMMARY: Patient was brought to the operating room and placed in the supine position. Plan was for a percutaneous endoscopic gastrostomy placement; however, after the anesthesia was given adequately and the gastroscope was inserted into the posterior oropharynx down the esophagus, there was some mild dilatation of the proximal esophagus, but what was noted was a very long stricture in the distal third of the esophagus, and this was very tight to get the gastroscope through, and the scope was advanced into the stomach. There were no other masses or lesions within the stomach, but there was some old blood within the stomach. There was some mild gastritis throughout the stomach and the duodenal bulb but no other masses or lesions. 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 I did not feel that the gastrostomy tube would be able to get through this stricture without causing significant trauma. Thus, I felt that better option, if the patient/family still desired gastrostomy tube placement, a percutaneous gastrostomy via an interventional method could be performed. The scope was removed in its entirety. The patient tolerated the procedure adequately and was brought to the recovery room in stable condition.
== END 2020-11-13 09:08 | disposition hospice, home (50) | DRG 687 ==
LOC: M ED 18:18 → M ED INP 11-02 00:09 → ENRESERV 11-02 01:39 → M MS5PR 11-02 02:54 → M PCU 11-02 14:25 → M MSPAV 11-09 19:00
PROVIDERS: ADMIT Internal Medicine; ATTEND Family Medicine
PROC: 0T9030Z Drainage of Right Kidney with Drainage Device, Percutaneous Approach (ICD-10-PCS; principal; 2020-11-02 11:25)
PROC: 0DJ08ZZ Inspection of Upper Intestinal Tract, Via Natural or Artificial Opening Endoscopic (ICD-10-PCS; 2020-11-09)
DX: C79.11 Secondary malignant neoplasm of bladder (principal); N17.9 Acute kidney failure, unspecified; E87.1 Hypo-osmolality and hyponatremia; E87.2 Acidosis; C15.9 Malignant neoplasm of esophagus, unspecified; N25.81 Secondary hyperparathyroidism of renal origin; N13.6 Pyonephrosis; I82.431 Acute embolism and thrombosis of right popliteal vein; N39.0 Urinary tract infection, site not specified; E87.0 Hyperosmolality and hypernatremia; E86.0 Dehydration; N18.32 Chronic kidney disease, stage 3b; D63.1 Anemia in chronic kidney disease; D50.9 Iron deficiency anemia, unspecified; E78.5 Hyperlipidemia, unspecified; E03.9 Hypothyroidism, unspecified; Z20.822 Contact with and (suspected) exposure to COVID-19; Z79.82 Long term (current) use of aspirin; Z79.899 Other long term (current) drug therapy; Z96.0 Presence of urogenital implants; I12.9 Hypertensive chronic kidney disease with stage 1 through stage 4 chronic kidney disease, or unspecified chronic kidney disease; K21.9 Gastro-esophageal reflux disease without esophagitis; N40.1 Benign prostatic hyperplasia with lower urinary tract symptoms; H40.9 Unspecified glaucoma; Z92.3 Personal history of irradiation; Z92.21 Personal history of antineoplastic chemotherapy; Z66 Do not resuscitate; E87.5 Hyperkalemia; E79.0 Hyperuricemia without signs of inflammatory arthritis and tophaceous disease; E83.41 Hypermagnesemia; B96.89 Other specified bacterial agents as the cause of diseases classified elsewhere; D72.829 Elevated white blood cell count, unspecified; R13.10 Dysphagia, unspecified; G20 Parkinson's disease; F03.90 Unspecified dementia, unspecified severity, without behavioral disturbance, psychotic disturbance, mood disturbance, and anxiety; Z51.5 Encounter for palliative care